=== PATIENT | female | born 1975 | race Caucasian/White ===

== ENCOUNTER 2017-01-29 19:25 | Emergency (ER) | payer OTHER ==
[2017-01-29] MEDS ORDERED: NORCO 5/325 MG PO ONE ×2 (20:30→20:31)
[2017-01-29] MEDS ORDERED: Zithromax 250 MG TABLET PO ONE (20:30)
--- NOTE | 2017-01-29 20:36 | ERPHSYRPT ---
- History of Present Illness Time Seen by Provider: 01/29/17 20:26 Source: patient Exam Limitations: no limitations Patient Subjective Stated Complaint: pt states she has had a sore throat since last night and has no voice increased pain today. Triage Nursing Assessment: pt alert and oriented, answers questions approp. voice hoarse, redness noted to throat. pt ambulatory with steady gait noted. respirations nonlabored with lungs cta. Physician History: SINCE YESTERDAY PT HAS HAD COUGH, SORE THROAT AND HOARSENESS; DENIES FEVER, VOMITING. Allergies/Adverse Reactions: cefaclor [From [employer]] Allergy (Intermediate, Verified 01/29/17 19:43) Hives Home Medications: Citalopram Hydrobromide 20 mg* [ceLEXa 20 MG] 20 mg PO DAILY 05/26/14 [ History] Clonazepam 0.5 mg [Klonopin 0.5 MG] 0.5 mg PO Q6-8HPRN PRN 01/29/17 [ History] Prednisone 20 mg [Deltasone 20 mg] 5 mg PO DAILY 01/29/17 [History] Hx Tetanus, Diphtheria Vaccination/Date Given: Yes Hx Influenza Vaccination/Date Given: No Hx Pneumococcal Vaccination/Date Given: No Immunizations Up to Date: Yes - Review of Systems Constitutional: No Fever Ears, Nose, & Throat: Throat Pain, Hoarse Respiratory: Cough Abdominal/Gastrointestinal: No Vomiting All Other Systems: Reviewed and Negative - Past Medical History Pertinent Past Medical History: Yes Neurological History: No Pertinent History ENT History: No Pertinent History Cardiac History: No Pertinent History Respiratory History: Asthma Endocrine Medical History: No Pertinent History Musculoskeletal History: No Pertinent History GI Medical History: Colitis, Other History: No Pertinent History Psycho-Social History: Anxiety, Depression Female Reproductive Disorders: No Pertinent History Other Medical History: ULCERATIVE COLITIS,ANEMIA - Past Surgical History Past Surgical History: Yes Neuro Surgical History: No Pertinent History Cardiac: No Pertinent History Respiratory: No Pertinent History Gastrointestinal: No Pertinent History Genitourinary: No Pertinent History Musculoskeletal: No Pertinent History Female Surgical History: Section, Tubal Ligation - Social History Smoking Status: Never smoker How long have you smoked: 10yrs Exposure to second hand smoke: No Drug Use: none Patient Lives Alone: No - Female History Hx Last Menstrual Period: 1 month ago Hx Now: No - Nursing Vital Signs Nursing Vital Signs: Initial Vital Signs Temperature 97.9 F Temperature Source Oral Pulse Rate 90 Respiratory Rate 18 Blood Pressure [Right Arm] 125/72 Blood Pressure [Right Arm] 127/76 Pain Intensity 8 - Physical Exam General Appearance: alert Eye Exam: PERRL/EOMI, other (LEFT CONJUNCTIVAE INJECTED) Ears, Nose, Throat Exam: TMs normal, moist mucous membranes, pharyngeal erythema Neck Exam: normal inspection Respiratory Exam: lungs clear Cardiovascular Exam: normal heart sounds Gastrointestinal/Abdomen Exam: soft, normal bowel sounds Back Exam: normal range of motion Extremity Exam: normal inspection, No pedal edema Neurologic Exam: alert, cooperative Skin Exam: warm, dry SpO2 Interpretation: normal SpO2: 100 Oxygen Delivery: Room Air - Course Nursing assessment & vital signs reviewed: Yes Ordered Tests: Medication Summary Generic Name Dose Route Start Last Admin Trade Name Freq PRN Reason Stop Dose Admin Acetaminophen/Hydrocodone Bitart 2 tab 01/29/17 20:30 [place] 5/325 Mg PO 01/29/17 20:31 STAT ONE Acetaminophen/Hydrocodone Bitart 2 tab 01/29/17 20:31 [place] 5/325 Mg PO 01/29/17 20:32 SENT HOME W/ PATIENT ONE Azithromycin 500 mg 01/29/17 20:30 Zithromax 250 Mg Tablet PO 01/29/17 20:31 STAT ONE - Progress Progress Note: 01/29/17 20:35 PT WANTS TO USE THE GENTAMYCIN EYE DROPS SHE HAS AT HOME FOR HER LEFT CONJUNCTIVITIS. - Departure Time of Disposition: 20:36 Departure Disposition: Home Clinical Impression: PHARYNGITIS, CONJUNCTIVITIS OF LEFT EYE Condition: Fair Critical Care Time: No Instructions: Pharyngitis/Tonsillopharyngitis -- Adult, Conjunctivitis Additional Instructions: FOLLOW UP WITH PRIVATE DOCTOR TOMORROW. Prescriptions: Naproxen [Naprosyn] 500 mg PO Q12H PRN PRN #20 tablet PRN Reason: Pain Azithromycin 250 mg [Zithromax 250 MG TABLET] 250 mg PO ZPACK #6 tablet
[2017-01-29] MEDS ORDERED: Zithromax 250 MG TABLET ONE (20:53)
[2017-01-29] MEDS ORDERED: NORCO 5/325 MG ONE (20:54)
[2017-01-29 21:18] VITALS: BP 124/78; PULSE 98; O2SAT 99
== END 2017-01-29 21:18 | disposition home or self-care (01) ==
LOC: ED 19:25
DX: J02.9 Acute pharyngitis, unspecified (principal); H10.9 Unspecified conjunctivitis; R05 Cough; R49.0 Dysphonia
CPT/HCPCS: 99283; A9270-GY

== ENCOUNTER 2017-03-11 09:22 | Emergency (ER) | payer OTHER ==
[2017-03-11] MEDS ORDERED: Sodium Chloride 0.9% 1000 ML 1,000 ML IV STA (09:53)
[2017-03-11] MEDS ORDERED: Phenergan 25 MG INJ IM ONE (09:53)
[2017-03-11 10:14] LABS: BASOPHIL % 0.4 % (0.0-0.4); Eosinophil % 1.3 % (0.00-5.0); Granulocytes % 69.7 % (36.0-66.0); Lymphocytes % 19.4 % (24.0-44.0); Mean Cell Volume 78.1 fl (78-100); Mean Platelet Volume 11.3 fl (6-9.5); Monocytes % 9.2 % (0.0-12.0); Platelet Count 383 K/mm3 (150-450); Red Blood Count 5.49 M/mm3 (4.1-5.4); Red Cell Distribution Width 14.8 % (11.5-14.0); White Blood Count 9.2 K/mm3 (4.0-10.5)
[2017-03-11 10:28] LABS: COMPLETE URINE MICROSCOPIC? YES; Collection Type CLEAN CATCH
[2017-03-11 10:29] LABS: Bacteria MODERATE /HPF (NEGATIVE); Epithelial Cells MANY /HPF (FEW); Mucus MANY /HPF (NEGATIVE)
[2017-03-11] MEDS ORDERED: Phenergan 25 MG INJ ONE (10:32)
[2017-03-11] MEDS ORDERED: Sodium Chloride 0.9% 1000 ML 1,000 ML ONE (10:32)
--- NOTE | 2017-03-11 10:51 | XRAY ---
Indication: Abdominal pain and diarrhea. Comparison: June 25, 2010. 2 views of the abdomen again demonstrates nonspecific nonobstructed bowel gas pattern. Right lower quadrant undigested medication/pills. No free air. Solid organs and osseous structures are unremarkable. Single PA chest again demonstrates normal heart, lungs, and bony thorax. Impression: Stable nonacute nonobstructed abdomen with normal 1 view chest.
[2017-03-11 10:53] LABS: ALBUMIN 3.6 g/dL (3.4-5.0); ALKALINE PHOSPHATASE 138 U/L (46-116); ANION GAP 14.8 MEQ/L (5-15); BILIRUBIN,TOTAL 0.5 mg/dL (0.2-1.0); BLOOD UREA NITROGEN 11 mg/dL (9-20); CHLORIDE 102 mEq/L (98-107); Carbon Dioxide 26.8 mEq/L (21-32); Glucose 107 MG/DL (70-110); LIPASE 86 U/L (73-393); Potassium 3.6 mEq/L (3.5-5.1); SGOT/AST 13 U/L (15-37); SGPT/ALT 19 U/L (12-78); SODIUM 140 mEq/L (136-145); Total Protein 7.5 gm/dL (6.4-8.2)
--- NOTE | 2017-03-11 10:56 | ERPHSYRPT ---
- History of Present Illness Time Seen by Provider: 03/11/17 09:27 Historian: patient Patient Subjective Stated Complaint: vomiting since last friday Triage Nursing Assessment: vomiting less than 5 times daily since last friday. diarrhea x6 daily from friday to friday. states has 'ulcerative colitis and i have a little blood in my stool but no diarrhea now' skin warm and dry. bs present. c/o frontal headache Physician History: CC: V/D Hx: 41 y/o patient with hx of ulcerative colitis. She had diarrhea and vomiting all weekend. The diarrhea has improved. Mild blood in stool. No fever or chills. Feels dehydrated. No real abd pain. No chest pain. She has a burning sensation where she vomits. Timing/Duration: day(s) (few) Allergies/Adverse Reactions: cefaclor [From [facility]] Allergy (Intermediate, Verified 03/11/17 09:50) Hives Home Medications: Clonazepam 0.5 mg [Klonopin 0.5 MG] 0.5 mg PO BID 03/11/17 [History] Tramadol HCl/Acetaminophen [Tramadol-Acetaminophn 37.5-325] 1 each PO TIDPRN 07/20 [History] Hx Tetanus, Diphtheria Vaccination/Date Given: Yes Hx Influenza Vaccination/Date Given: No Hx Pneumococcal Vaccination/Date Given: No Immunizations Up to Date: Yes - Review of Systems Constitutional: Malaise, No Fever, No Chills Eyes: No Symptoms Ears, Nose, & Throat: No Symptoms Respiratory: No Cough, No Dyspnea Cardiac: No Chest Pain Abdominal/Gastrointestinal: Nausea, Vomiting, Diarrhea, No Abdominal Pain Genitourinary Symptoms: No Dysuria Musculoskeletal: No Back Pain Skin: No Rash Neurological: No Headache All Other Systems: Reviewed and Negative - Past Medical History Pertinent Past Medical History: Yes Neurological History: No Pertinent History ENT History: No Pertinent History Cardiac History: No Pertinent History Respiratory History: Asthma Endocrine Medical History: No Pertinent History Musculoskeletal History: No Pertinent History GI Medical History: Colitis, Other History: No Pertinent History Psycho-Social History: Anxiety, Depression Female Reproductive Disorders: No Pertinent History Other Medical History: ULCERATIVE COLITIS,ANEMIA - Past Surgical History Past Surgical History: Yes Neuro Surgical History: No Pertinent History Cardiac: No Pertinent History Respiratory: No Pertinent History Gastrointestinal: No Pertinent History Genitourinary: No Pertinent History Musculoskeletal: No Pertinent History Female Surgical History: Section, Tubal Ligation - Social History Smoking Status: Current every day smoker How long have you smoked: 10yrs Exposure to second hand smoke: No Drug Use: none Patient Lives Alone: No - Female History Hx Last Menstrual Period: 2 weeks Hx Now: No - Nursing Vital Signs Nursing Vital Signs: Initial Vital Signs Temperature 98.1 F Temperature Source Oral Pulse Rate 62 Respiratory Rate 18 Blood Pressure [] 97/70 Pain Intensity 3 - Physical Exam General Appearance: alert Eye Exam: PERRL/EOMI Ears, Nose, Throat Exam: dry mucous membranes Neck Exam: normal inspection, non-tender, supple Respiratory Exam: normal breath sounds, lungs clear Cardiovascular Exam: regular rate/rhythm, No murmur Gastrointestinal/Abdomen Exam: soft, No tenderness, No distention, No mass, No guarding Back Exam: normal inspection Extremity Exam: normal inspection, normal range of motion Neurologic Exam: alert, oriented x 3, cooperative, sensation nml, No motor deficits Skin Exam: warm, dry, No rash SpO2 Interpretation: normal SpO2: 94 Oxygen Delivery: Room Air - Course Nursing assessment & vital signs reviewed: Yes - Radiology Exams AAS X-ray Interpretation: Teleradiologist Report, Negative Ordered Tests: Active Orders 24 hr Category Date Time Status Clean Catch Urine Specimen STAT Care 03/11/17 09:53 Active IV Insertion STAT Care 03/11/17 09:53 Active OBSTR/ACUTE ABDOMEN SERIES Stat Exams 03/11/17 09:54 Completed CBC W DIFF Stat Lab 03/11/17 10:11 Completed CMP Stat Lab 03/11/17 10:11 Completed HCG QUALITATIVE,SERUM Stat Lab 03/11/17 10:11 Completed LIPASE Stat Lab 03/11/17 10:11 Completed UA W/ MICROSCOPIC Stat Lab 03/11/17 09:54 Completed Medication Summary Discontinued Medications Generic Name Dose Route Start Last Admin Trade Name Freq PRN Reason Stop Dose Admin Sodium Chloride 1,000 mls @ 999 mls/hr 03/11/17 09:53 03/11/17 10:50 Sodium Chloride 0.9% 1000 Ml IV 03/11/17 10:53 999 mls/hr .Q1H1M STA Administration Sodium Chloride Confirm 03/11/17 10:32 Sodium Chloride 0.9% 1000 Ml Administered 03/11/17 10:33 Dose 1,000 mls @ ud .ROUTE .STK-MED ONE Promethazine HCl 25 mg 03/11/17 09:53 03/11/17 10:50 Phenergan 25 Mg Inj IM 03/11/17 09:54 25 mg STAT ONE Administration Promethazine HCl Confirm 03/11/17 10:32 Phenergan 25 Mg Inj Administered 03/11/17 10:33 Dose 25 mg .ROUTE .STK-MED ONE Lab/Rad Data: Laboratory Result Diagrams 03/11/17 10:11 03/11/17 10:11 Laboratory Results 03/11/17 03/11/17 03/11/17 Range/Units 10:11 10:11 10:11 WBC 9.2 (4.0-10.5) K/mm3 RBC 5.49 H (4.1-5.4) M/mm3 Hgb 14.3 (12.0-16.0) gm/dl Hct 42.9 (35-47) % MCV 78.1 (78-100) fl MCH 26.0 (26-32) pg MCHC 33.3 (32-36) g/dl RDW 14.8 H (11.5-14.0) % Plt Count 383 (150-450) K/mm3 MPV 11.3 H (6-9.5) fl Gran % 69.7 H (36.0-66.0) % Lymphocytes % 19.4 L (24.0-44.0) % Monocytes % 9.2 (0.0-12.0) % Eosinophils % 1.3 (0.00-5.0) % Basophils % 0.4 (0.0-0.4) % Basophils # 0.04 (0-0.4) Sodium 140 (136-145) mEq/L Potassium 3.6 (3.5-5.1) mEq/L Chloride 102 (98-107) mEq/L Carbon Dioxide 26.8 (21-32) mEq/L Anion Gap 14.8 (5-15) MEQ/L BUN 11 (9-20) mg/dL Creatinine 0.84 (0.55-1.30) mg/dl Estimated GFR > 60 ML/MIN Glucose 107 (70-110) MG/DL Calcium 9.1 (8.5-10.1) mg/dL Total Bilirubin 0.5 (0.2-1.0) mg/dL AST 13 L (15-37) U/L ALT 19 (12-78) U/L Alkaline Phosphatase 138 H (46-116) U/L Serum Total Protein 7.5 (6.4-8.2) gm/dL Albumin 3.6 (3.4-5.0) g/dL Lipase 86 (73-393) U/L Serum , Qual NEGATIVE (Negative) Ur Collection Type Urine Color (YELLOW) Urine Appearance (CLEAR) Urine pH (5-6) Ur Specific [place] (1.005-1.025) Urine Protein (Negative) Urine Glucose (UA) (NEGATIVE) mg/dL Urine Ketones (NEGATIVE) Urine Nitrite (NEGATIVE) Urine Bilirubin (NEGATIVE) Urine Urobilinogen (0-1) mg/dL Urine WBC (Auto) (NEGATIVE) Urine RBC (Auto) (0-5) Jaswinder/ul Urine Microscopic RBC (0-2) /HPF Urine Microscopic WBC (0-5) /HPF Ur Epithelial Cells (FEW) /HPF Urine Bacteria (NEGATIVE) /HPF Urine Mucus (NEGATIVE) /HPF Specimen Received 03/11/17 Range/Units 09:54 WBC (4.0-10.5) K/mm3 RBC (4.1-5.4) M/mm3 Hgb (12.0-16.0) gm/dl Hct (35-47) % MCV (78-100) fl MCH (26-32) pg MCHC (32-36) g/dl RDW (11.5-14.0) % Plt Count (150-450) K/mm3 MPV (6-9.5) fl Gran % (36.0-66.0) % Lymphocytes % (24.0-44.0) % Monocytes % (0.0-12.0) % Eosinophils % (0.00-5.0) % Basophils % (0.0-0.4) % Basophils # (0-0.4) Sodium (136-145) mEq/L Potassium (3.5-5.1) mEq/L Chloride (98-107) mEq/L Carbon Dioxide (21-32) mEq/L Anion Gap (5-15) MEQ/L BUN (9-20) mg/dL Creatinine (0.55-1.30) mg/dl Estimated GFR ML/MIN Glucose (70-110) MG/DL Calcium (8.5-10.1) mg/dL Total Bilirubin (0.2-1.0) mg/dL AST (15-37) U/L ALT (12-78) U/L Alkaline Phosphatase (46-116) U/L Serum Total Protein (6.4-8.2) gm/dL Albumin (3.4-5.0) g/dL Lipase (73-393) U/L Serum , Qual (Negative) Ur Collection Type CLEAN CATCH Urine Color YELLOW (YELLOW) Urine Appearance SLIGHTLY CLOUDY (CLEAR) Urine pH 6.0 (5-6) Ur Specific [place] 1.020 (1.005-1.025) Urine Protein 30 (Negative) Urine Glucose (UA) NEGATIVE (NEGATIVE) mg/dL Urine Ketones MODERATE-40 (NEGATIVE) Urine Nitrite NEGATIVE (NEGATIVE) Urine Bilirubin MODERATE (NEGATIVE) Urine Urobilinogen 1 (0-1) mg/dL Urine WBC (Auto) NEGATIVE (NEGATIVE) Urine RBC (Auto) SMALL (0-5) Jaswinder/ul Urine Microscopic RBC 0-2 (0-2) /HPF Urine Microscopic WBC 2-5 (0-5) /HPF Ur Epithelial Cells MANY (FEW) /HPF Urine Bacteria MODERATE (NEGATIVE) /HPF Urine Mucus MANY (NEGATIVE) /HPF Specimen Received 03/11/17 1015 - Progress Progress Note: 03/11/17 11:18 Pt stable. Feeling better after IVF and phenergan. She will try phenergan at home. Hg good. Advised follow up with Dr Aleman this week. Will release with instructions. Counseled pt/family regarding: lab results, diagnosis, need for follow-up, rad results - Departure Time of Disposition: 11:18 Departure Disposition: Home Clinical Impression: Vomiting and diarrhea, Ulcerative colitis Condition: Stable Critical Care Time: No Referrals: NOE ALEMAN [Primary Care Provider] - Instructions: Vomiting -- Adult, Diarrhea and Traveler's Diarrhea -- Adult, Ulcerative Colitis Additional Instructions: Sip fluids. Advance to bland diet. Rx phenergan for nausea. No driving today or while taking phenergan. Follow up with Dr Yen Aleman in 1-2 days. Return for problems or concerns. Prescriptions: Promethazine HCl 25 mg [Phenergan 25 mg] 25 mg PO Q6H PRN PRN #10 tablet PRN Reason: Nausea/Vomiting
[2017-03-11 11:44] VITALS: BP 122/70; PULSE 70; O2SAT 100
== END 2017-03-11 11:44 | disposition home or self-care (01) ==
LOC: ED 09:22
DX: R11.2 Nausea with vomiting, unspecified (principal); R19.7 Diarrhea, unspecified; K51.90 Ulcerative colitis, unspecified, without complications; K92.1 Melena; R51 Headache
CPT/HCPCS: 36000; 36415; 74022; 80053; 81000; 83690; 84703; 85025; 96360; 96372; 99284; J2550

== ENCOUNTER 2017-04-08 15:59 | Emergency (ER) | payer OTHER ==
[2017-04-08] MEDS ORDERED: Sodium Chloride 0.9% 1000 ML 1,000 ML IV STA (16:22)
[2017-04-08] MEDS ORDERED: Sodium Chloride 0.9% 1000 ML 1,000 ML ONE (16:23)
[2017-04-08 16:46] LABS: BASOPHIL % 0.4 % (0.0-0.4); Eosinophil % 0.4 % (0.00-5.0); Granulocytes % 67.1 % (36.0-66.0); Lymphocytes % 22.3 % (24.0-44.0); Mean Cell Volume 77.3 fl (78-100); Mean Platelet Volume 10.8 fl (6-9.5); Monocytes % 9.8 % (0.0-12.0); Platelet Count 474 K/mm3 (150-450); Red Blood Count 5.91 M/mm3 (4.1-5.4); Red Cell Distribution Width 15.7 % (11.5-14.0); White Blood Count 10.1 K/mm3 (4.0-10.5)
[2017-04-08 17:00] LABS: Collection Type VOID; Ph 7.5 (5-6)
[2017-04-08 17:01] LABS: COMPLETE URINE MICROSCOPIC? YES
[2017-04-08 17:02] LABS: ADD URINE CULTURE? YES (NO); ALBUMIN 3.9 g/dL (3.4-5.0); ALKALINE PHOSPHATASE 141 U/L (46-116); ANION GAP 16.6 MEQ/L (5-15); BLOOD UREA NITROGEN 11 mg/dL (9-20); Bacteria MANY /HPF (NEGATIVE); CHLORIDE 102 mEq/L (98-107); Carbon Dioxide 25.6 mEq/L (21-32); Epithelial Cells MANY /HPF (FEW); Glucose 110 MG/DL (70-110); Potassium 3.8 mEq/L (3.5-5.1); SGOT/AST 12 U/L (15-37); SGPT/ALT 21 U/L (12-78); SODIUM 140 mEq/L (136-145); Total Protein 8.5 gm/dL (6.4-8.2); WBC 0-2 /HPF (0-5)
--- NOTE | 2017-04-08 17:45 | ERPHSYRPT ---
- History of Present Illness Time Seen by Provider: 04/08/17 16:15 Historian: patient Exam Limitations: no limitations Patient Subjective Stated Complaint: pt states she has been vomiting for the past 2 days. pt denies any diarrhea. Triage Nursing Assessment: pt pink, warm, dry. abdomen obese. bowel sounds present in all 4 quads. pt afebrile. Timing/Duration: day(s) (2) Activities at Onset: none Quality: cramping Abdominal Pain Onset Location: suprapubic Pain Radiation: no radiation Severity of Pain-Max: moderate Severity of Pain-Current: moderate Modifying Factors: Improves With: nothing Allergies/Adverse Reactions: cefaclor [From [employer]] Allergy (Intermediate, Verified 04/08/17 16:16) Hives Home Medications: Clonazepam 0.5 mg [Klonopin 0.5 MG] 0.5 mg PO BID 03/11/17 [History] Tramadol HCl/Acetaminophen [Tramadol-Acetaminophn 37.5-325] 1 each PO TIDPRN 07/20 [History] Hx Tetanus, Diphtheria Vaccination/Date Given: Yes (up to date) Hx Influenza Vaccination/Date Given: No Hx Pneumococcal Vaccination/Date Given: No Immunizations Up to Date: Yes - Review of Systems Constitutional: No Symptoms Eyes: No Symptoms Ears, Nose, & Throat: No Symptoms Respiratory: No Symptoms Cardiac: No Symptoms Abdominal/Gastrointestinal: Abdominal Pain, Vomiting Genitourinary Symptoms: Dysuria Musculoskeletal: No Symptoms Skin: No Symptoms Neurological: No Symptoms Psychological: No Symptoms Endocrine: No Symptoms Hematologic/Lymphatic: No Symptoms - Past Medical History Pertinent Past Medical History: Yes Neurological History: No Pertinent History ENT History: No Pertinent History Cardiac History: No Pertinent History Respiratory History: Asthma Endocrine Medical History: No Pertinent History Musculoskeletal History: No Pertinent History GI Medical History: Colitis, Other History: No Pertinent History Psycho-Social History: Anxiety, Depression Female Reproductive Disorders: No Pertinent History Other Medical History: ULCERATIVE COLITIS,ANEMIA - Past Surgical History Past Surgical History: Yes Neuro Surgical History: No Pertinent History Cardiac: No Pertinent History Respiratory: No Pertinent History Gastrointestinal: No Pertinent History Genitourinary: No Pertinent History Musculoskeletal: No Pertinent History Female Surgical History: Section, Tubal Ligation - Social History Smoking Status: Former smoker How long have you smoked: 10yrs Exposure to second hand smoke: No Drug Use: none Patient Lives Alone: No - Female History Hx Last Menstrual Period: 03/09/2017 Hx Now: No - Nursing Vital Signs Nursing Vital Signs: Initial Vital Signs Temperature 97.9 F Temperature Source Oral Pulse Rate 80 Respiratory Rate 16 Blood Pressure [Right Arm] 108/83 Pain Intensity 0 - Physical Exam General Appearance: mild distress Eye Exam: eyes nml inspection Ears, Nose, Throat Exam: normal ENT inspection, pharynx normal Neck Exam: normal inspection, non-tender, supple, full range of motion Respiratory Exam: normal breath sounds, lungs clear, airway intact Cardiovascular Exam: regular rate/rhythm, normal heart sounds, normal peripheral pulses Gastrointestinal/Abdomen Exam: soft, normal bowel sounds Back Exam: normal inspection, normal range of motion, No CVA tenderness Extremity Exam: normal inspection, normal range of motion, pelvis stable Neurologic Exam: alert, oriented x 3, cooperative Skin Exam: normal color, warm, dry SpO2 Interpretation: normal SpO2: 97 Oxygen Delivery: Room Air - Course Nursing assessment & vital signs reviewed: Yes Ordered Tests: Active Orders 24 hr Category Date Time Status Clean Catch Urine Specimen STAT Care 04/08/17 16:19 Active IV Insertion STAT Care 04/08/17 16:17 Active Orthostatic Vital Signs STAT Care 04/08/17 17:50 Active CBC W DIFF Stat Lab 04/08/17 16:19 Completed CMP Stat Lab 04/08/17 16:19 Completed CULTURE,URINE Stat Lab 04/08/17 16:19 Received Manual Differential NC Stat Lab 04/08/17 16:19 Completed UA W/ MICROSCOPIC Stat Lab 04/08/17 16:19 Completed Medication Summary Discontinued Medications Generic Name Dose Route Start Last Admin Trade Name Patrick PRN Reason Stop Dose Admin Sodium Chloride 1,000 mls @ 999 mls/hr 04/08/17 16:22 04/08/17 16:26 Sodium Chloride 0.9% 1000 Ml IV 04/08/17 17:22 999 mls/hr .Q1H1M STA Administration Sodium Chloride Confirm 04/08/17 16:23 Sodium Chloride 0.9% 1000 Ml Administered 04/08/17 16:24 Dose 1,000 mls @ ud .ROUTE .STK-MED ONE Lab/Rad Data: Laboratory Result Diagrams 04/08/17 16:19 04/08/17 16:19 Laboratory Results 04/08/17 04/08/1704/08/17 Range/Units 16:19 16:19 16:19 WBC 10.1 (4.0-10.5) K/mm3 RBC 5.91 H (4.1-5.4) M/mm3 Hgb 14.8 (12.0-16.0) gm/dl Hct 45.7 (35-47) % MCV 77.3 L (78-100) fl MCH 25.0 L (26-32) pg MCHC 32.4 (32-36) g/dl RDW 15.7 H (11.5-14.0) % Plt Count 474 H (150-450) K/mm3 MPV 10.8 H (6-9.5) fl Gran % 67.1 H (36.0-66.0) % Lymphocytes % 22.3 L (24.0-44.0) % Monocytes % 9.8 (0.0-12.0) % Eosinophils % 0.4 (0.00-5.0) % Basophils % 0.4 (0.0-0.4) % Basophils # 0.04 (0-0.4) Sodium 140 (136-145) mEq/L Potassium 3.8 (3.5-5.1) mEq/L Chloride 102 (98-107) mEq/L Carbon Dioxide 25.6 (21-32) mEq/L Anion Gap 16.6 H (5-15) MEQ/L BUN 11 (9-20) mg/dL Creatinine 0.85 (0.55-1.30) mg/dl Estimated GFR > 60 ML/MIN Glucose 110 (70-110) MG/DL Calcium 9.5 (8.5-10.1) mg/dL Total Bilirubin 0.50 (0.2-1.0) mg/dL AST 12 L (15-37) U/L ALT 21 (12-78) U/L Alkaline Phosphatase 141 H (46-116) U/L Serum Total Protein 8.5 H (6.4-8.2) gm/dL Albumin 3.9 (3.4-5.0) g/dL Ur Collection Type VOID Urine Color YELLOW (YELLOW) Urine Appearance CLOUDY (CLEAR) Urine pH 7.5 (5-6) Ur Specific [place] 1.015 (1.005-1.025) Urine Protein 30 (Negative) Urine Glucose (UA) NEGATIVE (NEGATIVE) mg/dL Urine Ketones SMALL-15 (NEGATIVE) Urine Nitrite NEGATIVE (NEGATIVE) Urine Bilirubin SMALL (NEGATIVE) Urine Urobilinogen 0.2 (0-1) mg/dL Urine WBC (Auto) NEGATIVE (NEGATIVE) Urine RBC (Auto) TRACE-INTACT (0-5) Jaswinder/ul Urine Microscopic RBC 2-5 (0-2) /HPF Urine Microscopic WBC 0-2 (0-5) /HPF Ur Epithelial Cells MANY (FEW) /HPF Urine Bacteria MANY (NEGATIVE) /HPF Specimen Received 04/08/17 1704 - Progress Progress: improved Discussed with : Other (PCP 1 week) Counseled pt/family regarding: lab results, diagnosis, need for follow-up - Departure Time of Disposition: 18:55 Departure Disposition: Home Clinical Impression: Vomiting and diarrhea UTI (urinary tract infection) Qualifiers: Urinary tract infection type: site unspecified Hematuria presence: without hematuria Qualified Code(s): N39.0 - Urinary tract infection, site not specified Condition: Stable Critical Care Time: No Prescriptions: Smz/Tmp Ds Tablet [Bactrim Ds Tablet] 1 udtab PO BID #10 tablet
[2017-04-08] MEDS ORDERED: Zofran 4 MG/2 ML VIAL IV ONE (19:08)
[2017-04-08] MEDS ORDERED: Zofran 4 MG/2 ML VIAL ONE (19:10)
[2017-04-08 19:26] VITALS: BP 124/82; PULSE 100; O2SAT 98
== END 2017-04-08 19:28 | disposition home or self-care (01) ==
LOC: ED 15:59
DX: R11.10 Vomiting, unspecified (principal); R19.7 Diarrhea, unspecified; R30.0 Dysuria; N39.0 Urinary tract infection, site not specified
CPT/HCPCS: 36000; 36415; 80053; 81000; 85025; 87086; 96360; 96374; 99284; J2405

== ENCOUNTER 2017-04-11 09:51 | Emergency (ER) | payer OTHER ==
--- NOTE | 2017-04-11 10:43 | ERPHSYRPT ---
- History of Present Illness Time Seen by Provider: 04/11/17 10:24 Source: patient Exam Limitations: no limitations Patient Subjective Stated Complaint: PT REPORTS VOMITING X 3 DAYS-DENIES DIARRHEA-REPORTS DIAPHORESIS-PT TOOK LAST OF HER NERVE MEDS 4 DAYS AGO-STATES SHE WAS DX WITH UTI ET PLACED ON BACTRIM BUT HASN'T TAKEN IT DUE TO VOMITING Triage Nursing Assessment: PT PALE WARM ET DIAPHOETIC-ABD SOFT ET NONTENDER TO PALP-PT BOWEL SOUNDS PRESENT-RESP NONLABORED-PT ANXIOUS ET TALKATIVE Physician History: The patient is a 41-year-old female with her complaining of vomiting daily for about a week. She was seen in this ER on 04/08/17 for the same complaint. She says he's also sweaty at times during the day. She denies diarrhea. She also wants some Klonopin because she has run out. She states her doctor only gives her one week of it at a time. She is to see her doctor on Friday. Today she requests that if I cannot give her Klonopin, Phenergan will be good. Her past medical history is significant for anxiety, ulcerative colitis, and anemia. Her surgical history is significant for and tubal ligation. Timing/Duration: week(s) (1) Severity: mild Modifying Factors: Improves With: eating Associated Symptoms: vomiting, diaphoresis, No abdominal pain Allergies/Adverse Reactions: cefaclor [From Ceclor] Allergy (Intermediate, Verified 04/11/17 09:59) Hives Home Medications: Clonazepam 0.5 mg [Klonopin 0.5 MG] 0.5 mg PO BID 03/11/17 [History] Tramadol HCl/Acetaminophen [Tramadol-Acetaminophn 37.5-325] 1 each PO TIDPRN 07/20 [History] Hx Tetanus, Diphtheria Vaccination/Date Given: Yes Hx Influenza Vaccination/Date Given: No Hx Pneumococcal Vaccination/Date Given: No Immunizations Up to Date: Yes - Review of Systems Constitutional: No Fever, No Chills Eyes: No Symptoms Ears, Nose, & Throat: No Symptoms Respiratory: No Cough, No Dyspnea Cardiac: No Chest Pain, No Edema, No Syncope Abdominal/Gastrointestinal: Vomiting (obese) Genitourinary Symptoms: No Dysuria Musculoskeletal: No Back Pain, No Neck Pain Skin: Other (diaphoresis), No Rash Neurological: No Dizziness, No Focal Weakness, No Sensory Changes Psychological: No Symptoms Endocrine: No Symptoms Hematologic/Lymphatic: No Symptoms Immunological/Allergic: No Symptoms All Other Systems: Reviewed and Negative - Past Medical History Pertinent Past Medical History: Yes Neurological History: No Pertinent History ENT History: No Pertinent History Cardiac History: No Pertinent History Respiratory History: Asthma Endocrine Medical History: No Pertinent History Musculoskeletal History: No Pertinent History GI Medical History: Colitis, Other History: No Pertinent History Psycho-Social History: Anxiety, Depression Female Reproductive Disorders: No Pertinent History Other Medical History: ULCERATIVE COLITIS,ANEMIA - Past Surgical History Past Surgical History: Yes Neuro Surgical History: No Pertinent History Cardiac: No Pertinent History Respiratory: No Pertinent History Gastrointestinal: No Pertinent History Genitourinary: No Pertinent History Musculoskeletal: No Pertinent History Female Surgical History: Section, Tubal Ligation - Social History Smoking Status: Former smoker How long have you smoked: 10yrs Exposure to second hand smoke: No Drug Use: none Patient Lives Alone: No - Female History Hx Last Menstrual Period: CURRENT Hx Now: No - Nursing Vital Signs Nursing Vital Signs: Initial Vital Signs Temperature 98.0 F Temperature Source Oral Pulse Rate 100 Respiratory Rate 20 Blood Pressure [] 107/42 Pain Intensity 0 - Physical Exam General Appearance: no apparent distress, alert Eye Exam: PERRL/EOMI, eyes nml inspection Ears, Nose, Throat Exam: normal ENT inspection, TMs normal, pharynx normal, moist mucous membranes Neck Exam: normal inspection, non-tender, supple, full range of motion Respiratory Exam: normal breath sounds, lungs clear, No respiratory distress Cardiovascular Exam: regular rate/rhythm, normal heart sounds, normal peripheral pulses Gastrointestinal/Abdomen Exam: soft, normal bowel sounds, No tenderness, No mass Pelvic Exam: not done Rectal Exam: not done Back Exam: normal inspection, normal range of motion, No CVA tenderness, No vertebral tenderness Extremity Exam: normal inspection, normal range of motion, pelvis stable Neurologic Exam: alert, oriented x 3, cooperative, normal mood/affect, nml cerebellar function, nml station & gait, sensation nml, No motor deficits Skin Exam: normal color, warm, dry, No rash Lymphatic Exam: No adenopathy SpO2 Interpretation: normal SpO2: 97 Oxygen Delivery: Room Air - Radiology Exams Abdomen X-ray Interpretation: Teleradiologist Report, Negative (Per Dr Arroyo.) Ordered Tests: Active Orders 24 hr Category Date Time Status IV Insertion STAT Care 04/11/17 10:49 Active OBSTR/ACUTE ABDOMEN SERIES Stat Exams 04/11/17 10:48 Completed CBC W DIFF Stat Lab 04/11/17 11:03 Completed CMP Stat Lab 04/11/17 11:03 Completed CULTURE,URINE Stat Lab 04/11/17 11:03 Received HCG QUALITATIVE,SERUM Stat Lab 04/11/17 11:03 Completed UA W/ MICROSCOPIC Stat Lab 04/11/17 11:03 Completed Medication Summary Discontinued Medications Generic Name Dose Route Start Last Admin Trade Name Shaggyq PRN Reason Stop Dose Admin Sodium Chloride 1,000 mls @ 999 mls/hr 04/11/17 10:47 04/11/17 11:13 Sodium Chloride 0.9% 1000 Ml IV 04/11/17 11:47 999 mls/hr .Q1H1M STA Administration Sodium Chloride Confirm 04/11/17 11:08 Sodium Chloride 0.9% 1000 Ml Administered 04/11/17 11:09 Dose 1,000 mls @ ud .ROUTE .STK-MED ONE Promethazine HCl 25 mg 04/11/17 10:47 04/11/17 11:13 Phenergan 25 Mg Inj IV 04/11/17 10:48 25 mg STAT ONE Administration Promethazine HCl Confirm 04/11/17 11:08 Phenergan 25 Mg Inj Administered 04/11/17 11:09 Dose 25 mg .ROUTE .STK-MED ONE Lab/Rad Data: Laboratory Result Diagrams 04/11/17 11:03 04/11/17 11:03 Laboratory Results 04/11/17 04/11/17 04/11/17 Range/Units 11:03 11:03 11:03 WBC (4.0-10.5) K/mm3 RBC (4.1-5.4) M/mm3 Hgb (12.0-16.0) gm/dl Hct (35-47) % MCV (78-100) fl MCH (26-32) pg MCHC (32-36) g/dl RDW (11.5-14.0) % Plt Count (150-450) K/mm3 MPV (6-9.5) fl Gran % (36.0-66.0) % Lymphocytes % (24.0-44.0) % Monocytes % (0.0-12.0) % Eosinophils % (0.00-5.0) % Basophils % (0.0-0.4) % Basophils # (0-0.4) Sodium 139 (136-145) mEq/L Potassium 3.8 (3.5-5.1) mEq/L Chloride 105 (98-107) mEq/L Carbon Dioxide 28.3 (21-32) mEq/L Anion Gap 9.4 (5-15) MEQ/L BUN 12 (9-20) mg/dL Creatinine 0.95 (0.55-1.30) mg/dl Estimated GFR > 60 ML/MIN Glucose 109 (70-110) MG/DL Calcium 9.0 (8.5-10.1) mg/dL Total Bilirubin 0.60 (0.2-1.0) mg/dL AST 25 (15-37) U/L ALT 33 (12-78) U/L Alkaline Phosphatase 130 H (46-116) U/L Serum Total Protein 7.8 (6.4-8.2) gm/dL Albumin 3.7 (3.4-5.0) g/dL Serum , Qual NEGATIVE (Negative) Ur Collection Type VOID Urine Color DARK YELLOW (YELLOW) Urine Appearance SLIGHTLY CLOUDY (CLEAR) Urine pH 5.5 (5-6) Ur Specific [place] >=1.030 (1.005-1.025) Urine Protein 30 (Negative) Urine Glucose (UA) NEGATIVE (NEGATIVE) mg/dL Urine Ketones TRACE (NEGATIVE) Urine Nitrite NEGATIVE (NEGATIVE) Urine Bilirubin SMALL (NEGATIVE) Urine Urobilinogen 1 (0-1) mg/dL Urine WBC (Auto) NEGATIVE (NEGATIVE) Urine RBC (Auto) SMALL (0-5) Jaswinder/ul Urine Microscopic RBC 2-5 (0-2) /HPF Urine Microscopic WBC 2-5 (0-5) /HPF Ur Epithelial Cells MODERATE (FEW) /HPF Urine Bacteria MODERATE (NEGATIVE) /HPF Urine Mucus MODERATE (NEGATIVE) /HPF Specimen Received 04/11/17 1030 04/11/17 Range/Units 11:03 WBC 9.1 (4.0-10.5) K/mm3 RBC 5.36 (4.1-5.4) M/mm3 Hgb 13.6 (12.0-16.0) gm/dl Hct 42.4 (35-47) % MCV 79.1 (78-100) fl MCH 25.4 L (26-32) pg MCHC 32.1 (32-36) g/dl RDW 15.2 H (11.5-14.0) % Plt Count 399 (150-450) K/mm3 MPV 10.4 H (6-9.5) fl Gran % 76.5 H (36.0-66.0) % Lymphocytes % 14.3 L (24.0-44.0) % Monocytes % 7.1 (0.0-12.0) % Eosinophils % 1.8 (0.00-5.0) % Basophils % 0.3 (0.0-0.4) % Basophils # 0.03 (0-0.4) Sodium (136-145) mEq/L Potassium (3.5-5.1) mEq/L Chloride (98-107) mEq/L Carbon Dioxide (21-32) mEq/L Anion Gap (5-15) MEQ/L BUN (9-20) mg/dL Creatinine (0.55-1.30) mg/dl Estimated GFR ML/MIN Glucose (70-110) MG/DL Calcium (8.5-10.1) mg/dL Total Bilirubin (0.2-1.0) mg/dL AST (15-37) U/L ALT (12-78) U/L Alkaline Phosphatase (46-116) U/L Serum Total Protein (6.4-8.2) gm/dL Albumin (3.4-5.0) g/dL Serum , Qual (Negative) Ur Collection Type Urine Color (YELLOW) Urine Appearance (CLEAR) Urine pH (5-6) Ur Specific [place] (1.005-1.025) Urine Protein (Negative) Urine Glucose (UA) (NEGATIVE) mg/dL Urine Ketones (NEGATIVE) Urine Nitrite (NEGATIVE) Urine Bilirubin (NEGATIVE) Urine Urobilinogen (0-1) mg/dL Urine WBC (Auto) (NEGATIVE) Urine RBC (Auto) (0-5) Jaswinder/ul Urine Microscopic RBC (0-2) /HPF Urine Microscopic WBC (0-5) /HPF Ur Epithelial Cells (FEW) /HPF Urine Bacteria (NEGATIVE) /HPF Urine Mucus (NEGATIVE) /HPF Specimen Received - Progress Progress: improved Counseled pt/family regarding: lab results, diagnosis, need for follow-up, rad results - Departure Time of Disposition: 12:09 Departure Disposition: Home Clinical Impression: Vomiting Condition: Stable Critical Care Time: No Additional Instructions: You have been experiencing vomiting. Today you were given normal saline 1 L by IV and Phenergan 25 mg by IV in the ER. Your laboratory results were all normal today. Take Phenergan 25 mg every 8 hours as needed. Follow-up as scheduled with your primary care doctor next week. Prescriptions: Promethazine HCl 25 mg [Phenergan 25 mg] 25 mg PO Q8H PRN PRN #10 tablet PRN Reason: Vomiting
[2017-04-11] MEDS ORDERED: Phenergan 25 MG INJ IV ONE (10:47)
[2017-04-11] MEDS ORDERED: Sodium Chloride 0.9% 1000 ML 1,000 ML IV STA (10:47)
[2017-04-11] MEDS ORDERED: Phenergan 25 MG INJ ONE (11:08)
[2017-04-11] MEDS ORDERED: Sodium Chloride 0.9% 1000 ML 1,000 ML ONE (11:08)
[2017-04-11 11:12] LABS: BASOPHIL % 0.3 % (0.0-0.4); Eosinophil % 1.8 % (0.00-5.0); Granulocytes % 76.5 % (36.0-66.0); Lymphocytes % 14.3 % (24.0-44.0); Mean Cell Volume 79.1 fl (78-100); Mean Corpuscular Hemoglobin 25.4 pg (26-32); Mean Platelet Volume 10.4 fl (6-9.5); Monocytes % 7.1 % (0.0-12.0); Platelet Count 399 K/mm3 (150-450); Red Blood Count 5.36 M/mm3 (4.1-5.4); Red Cell Distribution Width 15.2 % (11.5-14.0); White Blood Count 9.1 K/mm3 (4.0-10.5)
[2017-04-11 11:14] LABS: Collection Type VOID
[2017-04-11 11:15] LABS: COMPLETE URINE MICROSCOPIC? YES; Ph 5.5 (5-6)
[2017-04-11 11:19] LABS: Bacteria MODERATE /HPF (NEGATIVE); Epithelial Cells MODERATE /HPF (FEW); Mucus MODERATE /HPF (NEGATIVE)
[2017-04-11 11:20] LABS: ADD URINE CULTURE? YES (NO)
[2017-04-11 11:29] LABS: ALBUMIN 3.7 g/dL (3.4-5.0); ALKALINE PHOSPHATASE 130 U/L (46-116); ANION GAP 9.4 MEQ/L (5-15); BLOOD UREA NITROGEN 12 mg/dL (9-20); CHLORIDE 105 mEq/L (98-107); Carbon Dioxide 28.3 mEq/L (21-32); Glucose 109 MG/DL (70-110); Potassium 3.8 mEq/L (3.5-5.1); SGOT/AST 25 U/L (15-37); SGPT/ALT 33 U/L (12-78); SODIUM 139 mEq/L (136-145); Total Protein 7.8 gm/dL (6.4-8.2)
--- NOTE | 2017-04-11 11:42 | XRAY ---
Indication: Abdominal pain and vomiting. Comparison: March 11, 2017. 2 views of the abdomen again nonacute and nonobstructed. Solid organs and osseous structures unremarkable. Stable normal 1 view chest. No new/acute findings.
[2017-04-11 12:31] VITALS: BP 130/70; PULSE 80; O2SAT 98
== END 2017-04-11 12:30 | disposition home or self-care (01) ==
LOC: ED 09:51
DX: R11.10 Vomiting, unspecified (principal)
CPT/HCPCS: 36000; 36415; 74022; 80053; 81000; 84703; 85025; 87086; 96360; 96374; 99284; J2550

== ENCOUNTER 2017-07-02 07:32 | Emergency (ER) | payer OTHER ==
[2012-06-19 10:49] VITALS: BP 119/72
[2017-07-02] MEDS ORDERED: Sodium Chloride 0.9% 1000 ML 1,000 ML IV STA (08:04)
[2017-07-02] MEDS ORDERED: Zofran 4 MG/2 ML VIAL IV ONE (08:04)
[2017-07-02] MEDS ORDERED: Sodium Chloride 0.9% 1000 ML 1,000 ML ONE ×2 (08:10→10:15)
[2017-07-02] MEDS ORDERED: Zofran 4 MG/2 ML VIAL ONE (08:10)
--- NOTE | 2017-07-02 08:12 | ERPHSYRPT ---
- History of Present Illness Time Seen by Provider: 07/02/17 08:07 Historian: patient Exam Limitations: no limitations Patient Subjective Stated Complaint: pt has been seen in this er several times for n/v. waited to 2 months to see a gastro [facility] DRIVER in [place] who ordered testing to find out why this is all going on. pt started vomiting last night and cannot stop. has taken po phenergan and this is not working. has vomited x3 in the er. denies any pain just nauseated. has ct scan od abdomen scheduled for next week Triage Nursing Assessment: alert and oriented. pink warm and dry. afebrile. anxious and restless. mucos membranes dry. strong pulses. no abdominal pain. hypoactive bowel sounds. normal vitals Physician History: 41 y/o female with history of ulcerative colitis comes to the ER with complaints of nausea and vomiting for the past 2 days. Pt states that she has been dealing with this issue since March of this year. Pt mentions she is not able to keep anything down. Pt has been using phenergan with no relief. Pt also reports not being able to pass gas. Pt denies any fever, chills, abdominal pain , constipation, diarrhea or urinary symptoms. Of note, patient had an initial meeting with the GI doctor in [place]. Timing/Duration: day(s) (2) Activities at Onset: none Modifying Factors: Improves With: nothing Associated Symptoms: vomiting Previous symptoms: same symptoms as today Allergies/Adverse Reactions: cefaclor [From Ceclor] Allergy (Intermediate, Verified 04/11/17 09:59) Hives Home Medications: Hydrocodone/Acetaminophen [[place] 5-325 Tablet] 1 each PO TID 07/02/17 [History] Hx Tetanus, Diphtheria Vaccination/Date Given: Yes Hx Influenza Vaccination/Date Given: No Hx Pneumococcal Vaccination/Date Given: No - Review of Systems Constitutional: No Fever, No Chills Eyes: No Symptoms Ears, Nose, & Throat: No Symptoms Respiratory: No Cough, No Dyspnea Cardiac: No Chest Pain, No Edema, No Syncope Abdominal/Gastrointestinal: Nausea, Vomiting, No Abdominal Pain, No Diarrhea Genitourinary Symptoms: No Dysuria Musculoskeletal: No Back Pain, No Neck Pain Skin: No Rash Neurological: No Dizziness, No Focal Weakness, No Sensory Changes Psychological: No Symptoms Endocrine: No Symptoms All Other Systems: Reviewed and Negative - Past Medical History Pertinent Past Medical History: Yes Neurological History: No Pertinent History ENT History: No Pertinent History Cardiac History: No Pertinent History Respiratory History: Asthma Endocrine Medical History: No Pertinent History Musculoskeletal History: No Pertinent History GI Medical History: Colitis, Other History: No Pertinent History Psycho-Social History: Anxiety, Depression Female Reproductive Disorders: No Pertinent History Other Medical History: ULCERATIVE COLITIS,ANEMIA - Past Surgical History Past Surgical History: Yes Neuro Surgical History: No Pertinent History Cardiac: No Pertinent History Respiratory: No Pertinent History Gastrointestinal: No Pertinent History Genitourinary: No Pertinent History Musculoskeletal: No Pertinent History Female Surgical History: Section, Tubal Ligation - Social History Smoking Status: Former smoker How long have you smoked: 10yrs Exposure to second hand smoke: No Drug Use: none Patient Lives Alone: No - Female History Hx Last Menstrual Period: current Hx Now: No - Nursing Vital Signs Nursing Vital Signs: Initial Vital Signs Temperature 98.3 F 07/02/17 07:49 Pulse Rate 94 H 07/02/17 07:49 Respiratory Rate 22 07/02/17 07:49 Blood Pressure 130/77 07/02/17 07:49 O2 Sat by Pulse Oximetry 96 07/02/17 07:49 Pain Scale Pain Intensity 0 - Physical Exam General Appearance: no apparent distress, alert Eye Exam: PERRL/EOMI, eyes nml inspection Ears, Nose, Throat Exam: normal ENT inspection, pharynx normal, moist mucous membranes Neck Exam: normal inspection, non-tender, supple, full range of motion Respiratory Exam: normal breath sounds, lungs clear, No respiratory distress Cardiovascular Exam: regular rate/rhythm, normal heart sounds Gastrointestinal/Abdomen Exam: soft, other (hypoactive BS), No normal bowel sounds, No tenderness, No mass Back Exam: normal inspection, normal range of motion, No CVA tenderness, No vertebral tenderness Extremity Exam: normal inspection, normal range of motion, pelvis stable Neurologic Exam: alert, oriented x 3, cooperative, normal mood/affect, nml cerebellar function, sensation nml, No motor deficits Skin Exam: normal color, warm, dry SpO2 Interpretation: normal SpO2: 96 Oxygen Delivery: Room Air - Course Nursing assessment & vital signs reviewed: Yes Ordered Tests: Active Orders 24 hr Category Date Time Status IV Insertion STAT Care 07/02/17 08:04 Active NPO (ED) STAT Care 07/02/17 08:04 Active ABDOMEN AND PELVIS W CONTRAST [CT] Stat Exams 07/02/17 08:05 Completed CHEST 2 VIEWS (PA AND LAT) Stat Exams 07/02/17 Completed AMYLASE Stat Lab 07/02/17 08:15 Completed CBC W DIFF Stat Lab 07/02/17 08:15 Completed CMP Stat Lab 07/02/17 08:15 Completed CULTURE,URINE Stat Lab 07/02/17 08:15 Received HCG QUALITATIVE,SERUM Stat Lab 07/02/17 08:15 Completed LIPASE Stat Lab 07/02/17 08:15 Completed Lactic Acid Stat Lab 07/02/17 Completed UA W/ MICROSCOPIC Stat Lab 07/02/17 08:15 Completed Medication Summary Generic Name Dose Route Start Last Admin Trade Name Freq PRN Reason Stop Dose Admin Pantoprazole Sodium 40 mg 07/02/17 12:09 Protonix 40 Mg Iv IV 07/02/17 12:10 STAT ONE Discontinued Medications Generic Name Dose Route Start Last Admin Trade Name Freq PRN Reason Stop Dose Admin Sodium Chloride 1,000 mls @ 999 mls/hr 07/02/17 08:04 07/02/17 08:10 Sodium Chloride 0.9% 1000 Ml IV 07/02/17 09:04 999 mls/hr .Q1H1M STA Administration Sodium Chloride Confirm 07/02/17 08:10 Sodium Chloride 0.9% 1000 Ml Administered 07/02/17 08:11 Dose 1,000 mls @ ud .ROUTE .STK-MED ONE Sodium Chloride Confirm 07/02/17 10:15 Sodium Chloride 0.9% 1000 Ml Administered 07/02/17 10:16 Dose 1,000 mls @ ud .ROUTE .STK-MED ONE Lorazepam 0.5 mg 07/02/17 10:06 07/02/17 10:10 Ativan 2 Mg/1 Ml Vial IV 07/02/17 10:07 0.5 mg STAT ONE Administration Lorazepam Confirm 07/02/17 10:08 Ativan 2 Mg/1 Ml Vial Administered 07/02/17 10:09 Dose 2 mg .ROUTE .STK-MED ONE Ondansetron HCl 8 mg 07/02/17 08:04 07/02/17 08:10 Zofran 4 Mg/2 Ml Vial IV 07/02/17 08:05 8 mg STAT ONE Administration Ondansetron HCl Confirm 07/02/17 08:10 Zofran 4 Mg/2 Ml Vial Administered 07/02/17 08:11 Dose 8 mg .ROUTE .STK-MED ONE Promethazine HCl 25 mg 07/02/17 11:44 07/02/17 11:55 Phenergan 25 Mg Inj IV 07/02/17 11:45 25 mg STAT ONE Administration Promethazine HCl Confirm 07/02/17 11:54 Phenergan 25 Mg Inj Administered 07/02/17 11:55 Dose 25 mg .ROUTE .STK-MED ONE Lab/Rad Data: Laboratory Result Diagrams 07/02/17 08:15 07/02/17 08:15 Laboratory Results 07/02/17 07/02/17 07/02/17 Range/Units Unknown 08:15 08:15 WBC (4.0-10.5) K/mm3 RBC (4.1-5.4) M/mm3 Hgb (12.0-16.0) gm/dl Hct (35-47) % MCV (78-100) fl MCH (26-32) pg MCHC (32-36) g/dl RDW (11.5-14.0) % Plt Count (150-450) K/mm3 MPV (6-9.5) fl Gran % (36.0-66.0) % Lymphocytes % (24.0-44.0) % Monocytes % (0.0-12.0) % Eosinophils % (0.00-5.0) % Basophils % (0.0-0.4) % Basophils # (0-0.4) Sodium (136-145) mEq/L Potassium (3.5-5.1) mEq/L Chloride (98-107) mEq/L Carbon Dioxide (21-32) mEq/L Anion Gap (5-15) MEQ/L BUN (9-20) mg/dL Creatinine (0.55-1.30) mg/dl Estimated GFR ML/MIN Glucose (70-110) MG/DL Lactic Acid 1.2 (0.4-2.0) Calcium (8.5-10.1) mg/dL Total Bilirubin (0.2-1.0) mg/dL AST (15-37) U/L ALT (12-78) U/L Alkaline Phosphatase (46-116) U/L Serum Total Protein (6.4-8.2) gm/dL Albumin (3.4-5.0) g/dL Amylase (25-115) U/L Lipase (73-393) U/L Serum , Qual NEGATIVE (Negative) Ur Collection Type VOID Urine Color DARK YELLOW (YELLOW) Urine Appearance CLOUDY (CLEAR) Urine pH 5.0 (5-6) Ur Specific [place] 1.025 (1.005-1.025) Urine Protein 30 (Negative) Urine Ketones LARGE (NEGATIVE) Urine Blood LARGE (0-5) Jaswinder/ul Urine Nitrite NEGATIVE (NEGATIVE) Urine Bilirubin NEGATIVE (NEGATIVE) Urine Urobilinogen NORMAL (0-1) mg/dL Ur Leukocyte Esterase NEGATIVE (NEGATIVE) Urine Microscopic RBC 10-15 (0-2) /HPF Urine Microscopic WBC 2-5 (0-5) /HPF Ur Epithelial Cells MANY (FEW) /HPF Urine Bacteria MANY (NEGATIVE) /HPF Urine Mucus SLIGHT (NEGATIVE) /HPF Urine Glucose NEGATIVE (NEGATIVE) mg/dL Specimen Received 07/02/17 0815 07/02/17 07/02/17 Range/Units 08:15 08:15 WBC 10.9 H (4.0-10.5) K/mm3 RBC 5.62 H (4.1-5.4) M/mm3 Hgb 13.8 (12.0-16.0) gm/dl Hct 42.6 (35-47) % MCV 75.8 L (78-100) fl MCH 24.5 L (26-32) pg MCHC 32.4 (32-36) g/dl RDW 15.8 H (11.5-14.0) % Plt Count 446 (150-450) K/mm3 MPV 10.6 H (6-9.5) fl Gran % 85.4 H (36.0-66.0) % Lymphocytes % 10.4 L (24.0-44.0) % Monocytes % 3.9 (0.0-12.0) % Eosinophils % 0.1 (0.00-5.0) % Basophils % 0.2 (0.0-0.4) % Basophils # 0.02 (0-0.4) Sodium 142 (136-145) mEq/L Potassium 3.7 (3.5-5.1) mEq/L Chloride 103 (98-107) mEq/L Carbon Dioxide 25.9 (21-32) mEq/L Anion Gap 16.4 H (5-15) MEQ/L BUN 19 (9-20) mg/dL Creatinine 0.88 (0.55-1.30) mg/dl Estimated GFR > 60 ML/MIN Glucose 136 H (70-110) MG/DL Lactic Acid (0.4-2.0) Calcium 9.3 (8.5-10.1) mg/dL Total Bilirubin 0.70 (0.2-1.0) mg/dL AST 9 L (15-37) U/L ALT 19 (12-78) U/L Alkaline Phosphatase 147 H (46-116) U/L Serum Total Protein 8.2 (6.4-8.2) gm/dL Albumin 4.3 (3.4-5.0) g/dL Amylase 40 (25-115) U/L Lipase 90 (73-393) U/L Serum , Qual (Negative) Ur Collection Type Urine Color (YELLOW) Urine Appearance (CLEAR) Urine pH (5-6) Ur Specific [place] (1.005-1.025) Urine Protein (Negative) Urine Ketones (NEGATIVE) Urine Blood (0-5) Jaswinder/ul Urine Nitrite (NEGATIVE) Urine Bilirubin (NEGATIVE) Urine Urobilinogen (0-1) mg/dL Ur Leukocyte Esterase (NEGATIVE) Urine Microscopic RBC (0-2) /HPF Urine Microscopic WBC (0-5) /HPF Ur Epithelial Cells (FEW) /HPF Urine Bacteria (NEGATIVE) /HPF Urine Mucus (NEGATIVE) /HPF Urine Glucose (NEGATIVE) mg/dL Specimen Received - Progress Progress: improved Progress Note: 07/02/17 12:09 Pt feels better after receiving zofran and phenergan. The labs including electrolytes are within normal limits. The CT scan abd/pelvis shows mild colitis. Pt will be d/c home on short course of zofran and will F/U with GI. - Departure Time of Disposition: 12:11 Departure Disposition: Home Clinical Impression: Vomiting Qualifiers: Vomiting type: unspecified Vomiting Intractability: unspecified Nausea presence : with nausea Qualified Code(s): R11.2 - Nausea with vomiting, unspecified Condition: Stable Critical Care Time: No Referrals: NOE ALEMAN [Primary Care Provider] - Instructions: Vomiting -- Adult, Nausea -- Adult Additional Instructions: Follow up with your mat puncher for vomiting and additional recommendations. Prescriptions: Ondansetron [Zofran Odt] 4 mg PO Q6HPRN PRN #15 tab.rapdis PRN Reason: Nausea/Vomiting
[2017-07-02 08:24] LABS: Collection Type VOID; Leukocyte Esterase NEGATIVE (NEGATIVE)
[2017-07-02 08:25] LABS: Bilirubin NEGATIVE (NEGATIVE); Blood LARGE Ery/ul (0-5); COMPLETE URINE MICROSCOPIC? YES; Glucose NEGATIVE (NEGATIVE)
[2017-07-02 08:28] LABS: ADD URINE CULTURE? YES (NO); Bacteria MANY /HPF (NEGATIVE); Epithelial Cells MANY /HPF (FEW); Mucus SLIGHT /HPF (NEGATIVE)
[2017-07-02 08:33] LABS: BASOPHIL % 0.2 % (0.0-0.4); Eosinophil % 0.1 % (0.00-5.0); Granulocytes % 85.4 % (36.0-66.0); Lymphocytes % 10.4 % (24.0-44.0); Mean Cell Volume 75.8 fl (78-100); Mean Platelet Volume 10.6 fl (6-9.5); Monocytes % 3.9 % (0.0-12.0); Platelet Count 446 K/mm3 (150-450); Red Blood Count 5.62 M/mm3 (4.1-5.4); Red Cell Distribution Width 15.8 % (11.5-14.0); White Blood Count 10.9 K/mm3 (4.0-10.5)
[2017-07-02 08:34] LABS: Mean Corpuscular Hemoglobin 24.5 pg (26-32)
[2017-07-02 08:53] LABS: ALBUMIN 4.3 g/dL (3.4-5.0); ALKALINE PHOSPHATASE 147 U/L (46-116); ANION GAP 16.4 MEQ/L (5-15); BLOOD UREA NITROGEN 19 mg/dL (9-20); CHLORIDE 103 mEq/L (98-107); Carbon Dioxide 25.9 mEq/L (21-32); Glucose 136 MG/DL (70-110); LIPASE 90 U/L (73-393); Potassium 3.7 mEq/L (3.5-5.1); SGOT/AST 9 U/L (15-37); SGPT/ALT 19 U/L (12-78); SODIUM 142 mEq/L (136-145); Total Protein 8.2 gm/dL (6.4-8.2)
[2017-07-02] MEDS ORDERED: Ativan 2 MG/1 ML VIAL IV ONE (10:06)
[2017-07-02] MEDS ORDERED: Ativan 2 MG/1 ML VIAL ONE (10:08)
--- NOTE | 2017-07-02 11:18 | XRAY ---
Indication: Dizziness. Comparison: April 11, 2017. PA/lateral chest remains hyperinflated and clear. Heart is not enlarged. Bony thorax intact. Impression: Stable nonacute hyperinflated chest.
[2017-07-02] MEDS ORDERED: Phenergan 25 MG INJ IV ONE (11:44)
[2017-07-02] MEDS ORDERED: Phenergan 25 MG INJ ONE (11:54)
[2017-07-02 11:56] VITALS: PULSE 88
--- NOTE | 2017-07-02 12:00 | XRAY ---
Indication: Nausea and vomiting. Small bowel obstruction. Multiple contiguous axial images obtained through the abdomen and pelvis using 80 cc Isovue 370 contrast only. Comparison: None Lung bases clear. Heart is not enlarged. Small hiatal hernia. Noncontrasted stomach and bowel loops appear nonobstructed. There is mild circumferential wall thickening involving the distal descending and proximal sigmoid colon with minimal pericolonic stranding favoring colitis. No free fluid/air. Normal appendix. Spleen is enlarged measuring 16.3 cm in greatest axial dimension. Remaining liver, gallbladder, pancreas, spleen, adrenal glands, kidneys, ureters, bladder, uterus, and aorta appear unremarkable. No pathologic retroperitoneal lymphadenopathy. Osseous structures intact. Small fatty umbilical hernia. Impression: 1. Mild colitis involving the descending and sigmoid colon without complications. 2. Incidental splenomegaly, small hiatal hernia, and fatty umbilical hernia. CT DI 23.68
[2017-07-02] MEDS ORDERED: PROTONIX 40 MG IV IV ONE ×2 (12:09→12:16)
[2017-07-02 12:43] VITALS: BP 134/76; O2SAT 97
== END 2017-07-02 12:44 | disposition home or self-care (01) ==
LOC: ED 07:32
DX: R11.2 Nausea with vomiting, unspecified (principal)
CPT/HCPCS: 36000; 36415; 71020; 74177; 80053; 81000; 82150; 83605; 83690; 84703; 85025; 87086; 96360; 96374; 96375; 99284; J2060; J2405; J2550

== ENCOUNTER 2017-07-09 12:53 | Observation (INO) | payer OTHER ==
[2017-07-09] MEDS ORDERED: TYLENOL 325 MG PO PRN (13:11)
[2017-07-09] MEDS: Ativan 2 MG/1 ML VIAL IV PRN ×2 (13:40→19:57)
[2017-07-09 14:06] LABS: Mean Cell Volume 76.9 fl (78-100); Mean Corpuscular Hemoglobin 24.9 pg (26-32); Mean Platelet Volume 11.8 fl (6-9.5); Platelet Count 402 K/mm3 (150-450); Red Blood Count 5.54 M/mm3 (4.1-5.4); Red Cell Distribution Width 15.7 % (11.5-14.0); White Blood Count 8.6 K/mm3 (4.0-10.5)
[2017-07-09] MEDS: PROTONIX 40 MG IV IV SCH (14:27)
[2017-07-09] MEDS: Dextrose 5%-NS IV Solution 1000 ML 1,000 ML IV SCH (14:27)
[2017-07-09] MEDS ORDERED: Sodium Chloride 0.9% 1000 ML 1,000 ML ONE (14:41)
[2017-07-09 15:03] LABS: Collection Type CLEAN CATCH
[2017-07-09 15:04] LABS: Bacteria MANY /HPF (NEGATIVE); Bilirubin NEGATIVE (NEGATIVE); Blood 250 Ery/ul (0-5); COMPLETE URINE MICROSCOPIC? YES; Epithelial Cells MANY /HPF (FEW); Glucose NEGATIVE (NEGATIVE); Leukocyte Esterase NEGATIVE (NEGATIVE); Mucus MODERATE /HPF (NEGATIVE); WBC 0-2 /HPF (0-5)
[2017-07-09 15:11] LABS: ALBUMIN 4.2 g/dL (3.4-5.0); ALKALINE PHOSPHATASE 124 U/L (46-116); ANION GAP 15.6 MEQ/L (5-15); BLOOD UREA NITROGEN 10 mg/dL (9-20); CHLORIDE 102 mEq/L (98-107); Carbon Dioxide 27.1 mEq/L (21-32); Glucose 122 MG/DL (70-110); Potassium 3.2 mEq/L (3.5-5.1); SGOT/AST 24 U/L (15-37); SGPT/ALT 26 U/L (12-78); SODIUM 142 mEq/L (136-145); Total Protein 7.9 gm/dL (6.4-8.2)
--- NOTE | 2017-07-09 15:14 | CONS ---
CONSULT DATE: 07/09/2017 HISTORY: This is a 41 year-old female who has had nausea and vomiting in bouts since March 2017. She has lost about 40 lbs. She said that sometimes she vomits where she cannot control it. However other times she feels a nauseous feeling in her stomach so she forces herself to vomit and she states that it is making her feel like she is bulimic but she does not want to be bulimic. She does not have any abdominal pain. She has no diarrhea. She has no blood in her vomit. She has no blood in her stool. She does not have any other symptoms. PAST MEDICAL HISTORY: Ulcerative colitis. PAST SURGICAL HISTORY: Tubal ligation, section. She had a colonoscopy about eight years ago. MEDICATIONS: Asacol. ALLERGIES: CECLOR. SOCIAL HISTORY: No tobacco. No alcohol use. FAMILY HISTORY: The patient denies any inflammatory bowel disease, no cancers or bleeding issues. No other medical problems in the family. LAB DATA AND TESTS: White blood cell count 8.6, hemoglobin 13.8, PLT count 452,000. CT scan results are pending. PHYSICAL EXAMINATION: GENERAL: No acute distress. CVS: Regular rate and rhythm. PULMONARY: Nonlabored respirations. ABDOMEN: Soft, nontender, nondistended. EXTREMITIES: Normal. ASSESSMENT AND PLAN: This is a 41 year-old female who has had persistent nausea and vomiting in bouts over the past few months. She has lost about 40 lbs. She does need an EGD. I am awaiting her CT scan results at this time and will plan for EGD. I discussed all of the risks, benefits, alternatives regarding this procedure with the patient. She understands and agrees. We will plan to proceed once we have our CT scan results.
--- NOTE | 2017-07-09 16:25 | XRAY ---
Exam: CT of the abdomen and pelvis without IV contrast from 07/09/2017. CTDI: 23.68 Comparison: CT of the abdomen and pelvis without IV contrast from 07/02/2017. Indication: Nausea and vomiting 9 days. The patient has a history of ulcerative colitis. She also has a history of a prior tubal ligation 8 years ago. Technique: Non-IV contrast axial images were obtained through the abdomen and pelvis without IV contrast material. Reconstructed coronal and sagittal images were created and reviewed. Findings: The lung bases are clear. The heart size is normal. The liver appears normal. The gallbladder is distended and reveals no dense calcifications within it. The spleen is mildly enlarged measuring about 15.4 cm in greatest transverse diameter on axial image #21. This is unchanged. No splenic mass is seen. The pancreas and adrenal glands appear normal. Both kidneys are of unremarkable size and shape. No renal calculi, hydronephrosis, or gross mass is seen. I again see a small fat-containing umbilical hernia. No free intraperitoneal air is seen. No abdominal aortic aneurysm is seen. The patient is morbidly obese. No abnormal retroperitoneal lymphadenopathy is seen. I see no evidence of abnormal bowel distention. However, I again see some abnormal concentric bowel wall thickening within the descending colon with subtle pericolonic stranding. This is essentially unchanged from 07/02/2017. There may be some subtle bowel wall thickening within the proximal sigmoid colon as well. No other bowel wall thickening is seen. These findings are likely due to the patient's ulcerative colitis. No abscess or fluid collection is seen. The appendix is identified and appears normal. The uterus is anteflexed. The urinary bladder is essentially empty. No pelvic adnexal mass or abnormal pelvic lymph nodes are seen. I can identify each ovary which appears of unremarkable size, shape, and attenuation. No free fluid is seen within the pelvis. The skeleton reveals no acute fracture or aggressive bone lesion. Impression: 1. Previously noted small hiatal hernia is not seen on the current CT suggesting that the hiatal hernia is reducible. 2. Mild splenomegaly and a small fat-containing umbilical hernia are again seen. 3. Mild concentric wall thickening is seen throughout the descending colon as well as a portion of the proximal sigmoid colon. Subtle pericolonic stranding is seen at these sites. This is essentially unchanged and believed to be due to the patient's known ulcerative colitis. I see no evidence of bowel perforation or abscess within the abdomen or pelvis. 4. Normal appendix. 5. The uterus and ovaries appear unremarkable. No other acute process is seen within the abdomen or pelvis.
[2017-07-09] MEDS ORDERED: PHENERGAN 25 MG PO PRN (17:06)
[2017-07-09] MEDS: POTASSIUM CHLORIDE 20 mEq IN WATER 100ML 20 MEQ/100 ML BAG IV SCH ×2 (17:25→20:21)
[2017-07-09] MEDS: Carafate 1 GM PO SCH ×2 (17:26→21:30)
[2017-07-09] MEDS: Macrobid 100MG Capsule PO SCH (17:26)
[2017-07-09] MEDS: ASACOL HD PO SCH ×2 (17:27→21:30)
[2017-07-09] MEDS: Zofran 4 MG/2 ML VIAL IV PRN (17:36)
[2017-07-09] MEDS ORDERED: SUBLIMAZE 100 MCG/2 ML IV ONE (18:14)
[2017-07-09] MEDS ORDERED: DEMEROL 50 MG IV ONE (18:14)
[2017-07-09] MEDS ORDERED: VERSED 5 MG/5 ML IV ONE (18:14)
[2017-07-09] MEDS: ceLEXa 20 MG PO SCH (18:14)
[2017-07-09] MEDS ORDERED: MESALAMINE 1600 MG PO SCH (22:00)
[2017-07-10] MEDS: Dextrose 5%-NS IV Solution 1000 ML 1,000 ML IV SCH ×2 (01:44→10:56)
[2017-07-10] MEDS: Ativan 2 MG/1 ML VIAL IV PRN ×3 (01:52→14:37)
[2017-07-10] MEDS: Zofran 4 MG/2 ML VIAL IV PRN (05:35)
[2017-07-10] MEDS: Carafate 1 GM PO SCH ×3 (07:31→16:45)
[2017-07-10] MEDS: Macrobid 100MG Capsule PO SCH ×2 (08:28→17:03)
[2017-07-10] MEDS: ASACOL HD PO SCH ×2 (10:37→14:42)
[2017-07-10] MEDS: PROTONIX 40 MG IV IV SCH (10:38)
[2017-07-10] MEDS: ceLEXa 20 MG PO SCH (10:38)
[2017-07-10] MEDS: POTASSIUM CHLORIDE 20 mEq IN WATER 100ML 20 MEQ/100 ML BAG IV SCH ×2 (10:58→13:04)
[2017-07-10] MEDS: IMODIUM 2 MG PO PRN ×2 (11:38→14:37)
--- NOTE | 2017-07-10 12:05 | PCM.NOTE ---
Date and Time: 07/10/17 1202 Subjective Assessment: still c/o diarrhea, abdominal cramps - Review of Systems Constitutional: No Fever, No Chills Eyes: No Symptoms Ears, Nose, & Throat: No Symptoms Respiratory: No Cough, No Short Of Breath Cardiac: No Chest Pain, No Edema, No Syncope Abdominal/Gastrointestinal: Abdominal Pain, Diarrhea, No Nausea, No Vomiting, No Constipation Genitourinary Symptoms: No Dysuria Musculoskeletal: No Back Pain, No Neck Pain Skin: No Rash Neurological: No Dizziness, No Focal Weakness, No Sensory Changes Psychological: No Symptoms Endocrine: No Symptoms Hematologic/Lymphatic: No Symptoms Immunological/Allergic: No Symptoms Objective Exam General Appearance: no apparent distress, alert Neurologic Exam: alert, oriented x 3, cooperative, normal mood/affect, nml cerebellar function, sensation nml, No motor deficits Skin Exam: normal color, warm, dry Eye Exam: PERRL, EOMI, eyes nml inspection Ears, Nose, Throat Exam: normal ENT inspection, pharynx normal, moist mucous membranes Neck Exam: normal inspection, non-tender, supple, full range of motion Respiratory Exam: normal breath sounds, lungs clear, No respiratory distress Cardiovascular Exam: regular rate/rhythm, normal heart sounds Gastrointestinal/Abdomen Exam: soft, normal bowel sounds, No tenderness, No distention, No mass, No rebound Extremity Exam: normal inspection, normal range of motion Back Exam: normal inspection, normal range of motion, No CVA tenderness, No vertebral tenderness Pelvic Exam: deferred Rectal Exam: deferred OBJECTIVE DATA Vital Signs: Vital Signs - 24 hr Temp Pulse Resp BP Pulse Ox 07/10/17 08:00 98.1 F 84 20 117/59 94 L 07/10/17 03:56 98.6 F 81 18 115/60 95 07/10/17 00:00 98.5 F 87 20 114/63 96 07/09/17 19:05 98.5 F 69 16 128/83 97 07/09/17 18:05 98.2 F 75 14 125/87 97 07/09/17 17:05 98.8 F 20 L 20 142/78 95 07/09/17 16:34 98.1 F 67 20 124/75 93 L 07/09/17 16:10 97.9 F 79 20 136/82 97 07/09/17 15:55 97.9 F 82 16 135/86 96 07/09/17 14:49 98 F 107 H 16 131/91 95 07/09/17 13:39 98 F 107 H 16 131/91 95 Pain Assessment - Last Documented Pain Intensity 0 Pain Scale Used 0-10 Pain Scale Intake and Output: Intake & Output 07/08/17 07/09/17 07/10/17 07/11/17 11:59 11:59 11:59 11:59 Intake Total 3278 Output Total 60 Balance 3218 Weight 119.522 kg Lab Results: Lab Results-Last 24 Hours 07/09/17 07/09/17 07/09/17 Range/Units 13:15 13:30 13:30 WBC 8.6 (4.0-10.5) K/mm3 RBC 5.54 H (4.1-5.4) M/mm3 Hgb 13.8 (12.0-16.0) gm/dl Hct 42.6 (35-47) % MCV 76.9 L (78-100) fl MCH 24.9 L (26-32) pg MCHC 32.4 (32-36) g/dl RDW 15.7 H (11.5-14.0) % Plt Count 402 (150-450) K/mm3 MPV 11.8 H (6-9.5) fl Sodium 142 (136-145) mEq/L Potassium 3.2 L (3.5-5.1) mEq/L Chloride 102 (98-107) mEq/L Carbon Dioxide 27.1 (21-32) mEq/L Anion Gap 15.6 H (5-15) MEQ/L BUN 10 (9-20) mg/dL Creatinine 1.03 (0.55-1.30) mg/dl Estimated GFR > 60 ML/MIN Glucose 122 H (70-110) MG/DL Calcium 9.3 (8.5-10.1) mg/dL Total Bilirubin 0.60 (0.2-1.0) mg/dL AST 24 (15-37) U/L ALT 26 (12-78) U/L Alkaline Phosphatase 124 H (46-116) U/L Serum Total Protein 7.9 (6.4-8.2) gm/dL Albumin 4.2 (3.4-5.0) g/dL Lipase (73-393) U/L Ur Collection Type Urine Color (YELLOW) Urine Appearance (CLEAR) Urine pH (5-6) Ur Specific [place] (1.005-1.025) Urine Protein (Negative) Urine Ketones (NEGATIVE) Urine Blood (0-5) Jaswinder/ul Urine Nitrite (NEGATIVE) Urine Bilirubin (NEGATIVE) Urine Urobilinogen (0-1) mg/dL Ur Leukocyte Esterase (NEGATIVE) Urine Microscopic RBC (0-2) /HPF Urine Microscopic WBC (0-5) /HPF Ur Epithelial Cells (FEW) /HPF Urine Bacteria (NEGATIVE) /HPF Urine Mucus (NEGATIVE) /HPF Urine Glucose (NEGATIVE) mg/dL Urine Opiates Level NEG. (NEGATIVE) Ur Methadone NEG. (NEGATIVE) Urine Barbiturates NEG. (NEGATIVE) Ur Phencyclidine (PCP) NEG. (NEGATIVE) Urine Amphetamine NEG. (NEGATIVE) U Benzodiazepine Level POS. (NEGATIVE) Urine Cocaine NEG. (NEGATIVE) Urine Marijuana (THC) NEG. (NEGATIVE) Specimen Received 07/09/17 07/09/17 07/10/17 Range/Units 13:30 13:30 05:15 WBC (4.0-10.5) K/mm3 RBC (4.1-5.4) M/mm3 Hgb (12.0-16.0) gm/dl Hct (35-47) % MCV (78-100) fl MCH (26-32) pg MCHC (32-36) g/dl RDW (11.5-14.0) % Plt Count (150-450) K/mm3 MPV (6-9.5) fl Sodium (136-145) mEq/L Potassium 3.2 L (3.5-5.1) mEq/L Chloride (98-107) mEq/L Carbon Dioxide (21-32) mEq/L Anion Gap (5-15) MEQ/L BUN (9-20) mg/dL Creatinine (0.55-1.30) mg/dl Estimated GFR ML/MIN Glucose (70-110) MG/DL Calcium (8.5-10.1) mg/dL Total Bilirubin (0.2-1.0) mg/dL AST (15-37) U/L ALT (12-78) U/L Alkaline Phosphatase (46-116) U/L Serum Total Protein (6.4-8.2) gm/dL Albumin (3.4-5.0) g/dL Lipase 120 (73-393) U/L Ur Collection Type CLEAN CATCH Urine Color ORANGE (YELLOW) Urine Appearance CLOUDY (CLEAR) Urine pH 5.0 (5-6) Ur Specific [place] 1.020 (1.005-1.025) Urine Protein TRACE (Negative) Urine Ketones NEGATIVE (NEGATIVE) Urine Blood 250 (0-5) Jaswinder/ul Urine Nitrite NEGATIVE (NEGATIVE) Urine Bilirubin NEGATIVE (NEGATIVE) Urine Urobilinogen 1 (0-1) mg/dL Ur Leukocyte Esterase NEGATIVE (NEGATIVE) Urine Microscopic RBC 0-2 (0-2) /HPF Urine Microscopic WBC 0-2 (0-5) /HPF Ur Epithelial Cells MANY (FEW) /HPF Urine Bacteria MANY (NEGATIVE) /HPF Urine Mucus MODERATE (NEGATIVE) /HPF Urine Glucose NEGATIVE (NEGATIVE) mg/dL Urine Opiates Level (NEGATIVE) Ur Methadone (NEGATIVE) Urine Barbiturates (NEGATIVE) Ur Phencyclidine (PCP) (NEGATIVE) Urine Amphetamine (NEGATIVE) U Benzodiazepine Level (NEGATIVE) Urine Cocaine (NEGATIVE) Urine Marijuana (THC) (NEGATIVE) Specimen Received 07-09 1430 Radiology Exams: Radiology Procedures Category Date Time Status ABDOMEN AND PELVIS W/0 CONTRAS [CT] Urgent Exams 07/09/17 13:14 Completed Assessment/Plan (1) Ulcerative colitis Current Visit: Yes Status: Acute Qualifiers: Ulcerative colitis location: unspecified ulcerative colitis location Digestive disease complication type: without complication Qualified Code(s): K51.90 - Ulcerative colitis, unspecified, without complications Assessment & Plan: surgery consult reviewed, will continue present management Code(s): K51.90 - ULCERATIVE COLITIS, UNSPECIFIED, WITHOUT COMPLICATIONS (2) Vomiting and diarrhea Current Visit: Yes Status: Acute Assessment & Plan: improving Code(s): R11.10 - VOMITING, UNSPECIFIED; R19.7 - DIARRHEA, UNSPECIFIED
[2017-07-10 12:06] VITALS: O2SAT 98
[2017-07-10 17:22] VITALS: BP 127/58; PULSE 81
--- NOTE | 2017-07-11 09:09 | OP ---
PROCEDURE DATE/TIME: 07/09/2017 1505 PREOPERATIVE DIAGNOSIS: Nausea and vomiting. POSTOPERATIVE DIAGNOSES: 1) Mild gastritis. 2) Reflux disease. PROCEDURE: EGD with biopsy. PROCEDURE PERFORMED BY: Cherrie Ly M.D. ESTIMATED BLOOD LOSS: Minimal. ANESTHESIA: IV sedation, 50 of Demerol, 200 of Fentanyl, 5 of Versed. The patient was awake, coherent, following commands throughout the entire procedure. SPECIMEN: Antral biopsy. CONDITION: Satisfactory. COMPLICATIONS: None. HISTORY: This is a female who presented with nausea and vomiting to the hospital. She believed that it was mainly due to her anxiety but she had not had an upper scope and I had been consulted for EGD due to the persistent nausea and vomiting and she has also lost some weight. She does not have any pain in her abdomen currently. On her CT scan there is a small amount of thickening in the descending colon this appears chronic and is on all of her scans that she had over many year time. She does have a history of ulcerative colitis and this appears to be consistent with that. Regarding her stomach on CT scan this looks normal. She does not have any free air. She does have any other significant findings except for the thickening of her colon. The patient is already set up for outpatient colonoscopy with Dr. Pickering next month and I did urge her to keep this appointment because I do think outpatient colonoscopy is necessary in her as she has not had a colonoscopy for many years and she does have ulcerative colitis so she is going to plan to keep this appointment and continue with this treatment plan with her GI doctor who manages her ulcerative colitis. At this time due to the nausea and vomiting, we will proceed with EGD. I have discussed with her all risks, benefits, alternatives regarding EGD. She has been NPO. She understands. She would like to proceed with the procedure today. DESCRIPTION OF PROCEDURE: The patient was then taken back to the endoscopy suite. Anesthesia was induced. She was laid in the left lateral decubitus position. We used IV sedation. The patient was sedated but was awake, coherent and talking to me and nodding throughout the procedure appropriately. She was comfortable. We did our complete time out. The scope was then entered into the mouth, oropharynx and down into the esophagus, stomach and into the duodenum. Her duodenum looked normal. In the stomach she had mild gastritis throughout her stomach. I took an antral biopsy to rule out any Helicobacter pylori disease and this was sent to pathology. The site was hemostatic after biopsy. We did also retroflex. Mild amount of gastritis throughout the upper portion of the stomach as well. The scope was then carefully withdrawn. The patient had mild reflux disease also very mild here and the scope was completely removed. The patient tolerated the procedure very well. There were no immediate complications. Due to the finding of the gastritis, I will continue her on her proton pump inhibitor therapy as well as give her a prescription for Carafate to see if this will help with her nausea and vomiting symptoms. She also may continue to follow up with Dr. Pickering and she will see me in the office as well in approximately two weeks to discuss the biopsy results. She tolerated the procedure well. There were no immediate complications. We will plan to repeat the EGD on a PRN basis.
== END 2017-07-10 18:15 | disposition home or self-care (01) ==
LOC: MED SURG 12:53
PROVIDERS: ADMIT General Practice; ATTEND General Practice
PROC: 0DB78ZX Excision of Stomach, Pylorus, Via Natural or Artificial Opening Endoscopic, Diagnostic (ICD-10-PCS; principal; 2017-07-09)
DX: K29.70 Gastritis, unspecified, without bleeding (principal); K21.9 Gastro-esophageal reflux disease without esophagitis; K51.90 Ulcerative colitis, unspecified, without complications; K52.3 Indeterminate colitis; E80.6 Other disorders of bilirubin metabolism; F41.9 Anxiety disorder, unspecified; J45.998 Other asthma; E66.01 Morbid (severe) obesity due to excess calories; Z79.899 Other long term (current) drug therapy
CPT/HCPCS: 36415; 74176; 80053; 80307; 81000; 83690; 84132; 85027; 88305; 93268; G0378; J2060; J2175; J2250; J2405; J3010; J3480; A9270-GY

== ENCOUNTER 2017-08-04 23:19 | Emergency (ER) | payer OTHER ==
[2017-08-04 23:29] VITALS: O2SAT 98
[2017-08-04] MEDS ORDERED: Tylenol #3 Tablet PO ONE (23:34)
[2017-08-04] MEDS ORDERED: Tylenol #3 Tablet ONE (23:37)
--- NOTE | 2017-08-04 23:42 | ERPHSYRPT ---
- History of Present Illness Time Seen by Provider: 08/04/17 23:28 Source: patient Exam Limitations: clinical condition Patient Subjective Stated Complaint: Pt sts fell down stairs outside x 2, sts left ankle pain and left foot pain after falling. Pt with pain 6/10. Swelling left ankle. Also C/O right knee pain. Denies LOC. Triage Nursing Assessment: Pt alert, oriented, answers all questions appropriately. Skin pink, warm, dry. Resps non-labored. Pt to room per wheelchair, transfers with assist x 1 from wheelchair to bed. Swelling noted left lateral ankle with dried blood noted to ankle. Pt with decreased ROM left ankle. Physician History: PATIENT SLIPPED DOWN STEPS SUSTAINED INJURY TO OUTER ASPECT OF LEFT ANKLE, FOOT AND RIGHT KNEE PAIN. DENIES ASSOCIATED HEAD, NECK OR BACK INJURY. Occurred: just prior to arrival Reason for Fall: slipped, tripped Injuries/Pain Location: lower extremity Loss of Consciousness: no loss of consciousness Quality: throbbing Severity of Pain-Max: moderate Severity of Pain-Current: moderate Associated Symptoms (Fall): denies symptoms Allergies/Adverse Reactions: cefaclor [From Ceclor] Allergy (Intermediate, Verified 08/04/17 23:20) Hives Home Medications: Citalopram Hydrobromide [Citalopram HBr] 40 mg PO DAILY 07/09/17 [History] Mesalamine [Asacol] 800 mg PO QID 07/09/17 [History] Promethazine HCl 25 mg [Phenergan 25 mg] 25 mg PO Q6HPRN PRN 07/09/17 [ History] Hx Tetanus, Diphtheria Vaccination/Date Given: Yes Hx Influenza Vaccination/Date Given: No Hx Pneumococcal Vaccination/Date Given: No Immunizations Up to Date: Yes - Review of Systems Constitutional: No Symptoms Musculoskeletal: Injury, Joint Pain, Joint Swelling Neurological: No Symptoms Psychological: No Symptoms - Past Medical History Pertinent Past Medical History: Yes Neurological History: No Pertinent History ENT History: No Pertinent History Cardiac History: No Pertinent History Respiratory History: Asthma Endocrine Medical History: No Pertinent History Musculoskeletal History: No Pertinent History GI Medical History: Colitis, Other History: No Pertinent History Psycho-Social History: Anxiety, Depression Female Reproductive Disorders: No Pertinent History Other Medical History: ULCERATIVE COLITIS,ANEMIA - Past Surgical History Past Surgical History: Yes Neuro Surgical History: No Pertinent History Cardiac: No Pertinent History Respiratory: No Pertinent History Gastrointestinal: No Pertinent History Genitourinary: No Pertinent History Musculoskeletal: No Pertinent History Female Surgical History: Section, Tubal Ligation - Social History Smoking Status: Former smoker How long have you smoked: 10yrs Exposure to second hand smoke: No Drug Use: none Patient Lives Alone: No - Female History Hx Last Menstrual Period: hyst Hx Now: No - Nursing Vital Signs Nursing Vital Signs: Initial Vital Signs Temperature 98.9 F 08/04/17 23:22 Pulse Rate 111 H 08/04/17 23:22 Respiratory Rate 20 08/04/17 23:22 Blood Pressure 124/84 08/04/17 23:22 O2 Sat by Pulse Oximetry 98 08/04/17 23:22 Pain Scale Pain Intensity 8 - Guillermo Coma Score Best Eye Response (Guillermo): (4) open spontaneously Best Verbal Response (Arbon): (5) oriented Best Motor Response (Arbon): (6) obeys commands Guillermo Total: 15 - Physical Exam General Appearance: no apparent distress Head Injury: no evidence of injury Neck Exam: supple, full range of motion (NONTENDER), normal inspection, No tenderness Extremity Exam: normal range of motion (TENDERNESS LEFT FOOT MID 2ND TO 5 TH METATARSALS WITHOUT ECCHYMOSIS OR CREPITUS, LEFT PEDIS PULSE 2 +), joint swelling, limited range of motion (RIGHT KNEE PATELLA WITH SWELLING SUPERIOR ASPECT MOBILE AND MIDLINE, NO JOINT LAXITY UPON VARUS, VALGUS STRESS, NEGATIVE ANTERIOR DRAW SIGN), swelling, tenderness (THE LEFT ANKLE LATERAL MALLEOLUS WITH TENDERNESS, LIMITED RANGE OF MOTION, NO JOINT LAXITY OR ECCHYMOSIS, LEFT PEDIS PULSE 2+) SpO2: 98 Oxygen Delivery: Room Air - Radiology Exams Right Knee X-ray Interpretation: Interpreted by me (DEGENERATIVE ARTHRITIS. NO EVIDENCE OF FRACTURE OR DISLOCATION) Left Ankle X-ray Interpretation: Interpreted by me (AVULSION FRACTURE DISTAL LATERAL MALLEOLUS OF ANKLE) Left Foot X-ray Interpretation: Interpreted by me (FRACTURE DISTAL 3RD ASPECT OF 5TH METATARSAL) Ordered Tests: Active Orders 24 hr Category Date Time Status Crutches STAT Care 08/04/17 23:35 Active ANKLE (3 VIEWS) Stat Exams 08/04/17 23:34 Taken FOOT (MINIMUM 3 VIEWS) Stat Exams 08/04/17 23:34 Taken KNEE (3 VIEWS) Stat Exams 08/04/17 23:35 Taken Medication Summary Discontinued Medications Generic Name Dose Route Start Last Admin Trade Name Patrick PRN Reason Stop Dose Admin Acetaminophen/Codeine Phosphate 2 tab 08/04/17 23:34 08/04/17 23:38 Tylenol #3 Tablet PO 08/04/17 23:35 2 tab STAT ONE Administration Acetaminophen/Codeine Phosphate Confirm 08/04/17 23:37 Tylenol #3 Tablet Administered 08/04/17 23:38 Dose 2 tab .ROUTE .STK-MED ONE - Progress Progress: pain not gone completely Progress Note: 08/04/17 23:43 PATIENT ADMINISTERED TYLENOL #3 X 2 ORALLY, A SHORT LEFT LEG ORTHOGLASS SPLINT APPLIED AND FITTED FOR CRUTCHES 08/05/17 00:40 Counseled pt/family regarding: diagnosis, need for follow-up, rad results - Departure Time of Disposition: 01:00 Departure Disposition: Home Clinical Impression: LEFT ANKLE AVULSION FRACTURE, FRACTURE LEFT FOOT 5TH METATARSAL Condition: Stable Critical Care Time: No Referrals: NOE ALEMAN [Primary Care Provider] - Additional Instructions: AMBULATE USING CRUTCHES NONWEIGHT BEARING LEFT FOOT UNTIL EVALUATED BY DR JEFFERY ORTHOPEDIC SURGEON, CALL HIS OFFICE TOMORROW TO SCHEDULE APPOINTMENT. TAKE COPY OF DISK TO OFFICE. ELEVATE FOOT AND ALL TIMES AND APPLY ICE OVER FOOT AND ANKLE SWELLNG EVERY 4 HOURS, 40 MINUTES FOR 48 HOURS. NORCO 10/325 EVERY 4 HOURS FOR PAIN DISCOMFORT. Prescriptions: Hydrocodone/APAP 10/325 mg [Norden 10/325 MG Tablet] 1 tab PO Q4H PRN PRN # 25 tablet PRN Reason: Pain
[2017-08-05] MEDS ORDERED: NORCO 5/325 MG PO ONE (00:49)
[2017-08-05] MEDS ORDERED: NORCO 5/325 MG ONE (00:53)
[2017-08-05 01:28] VITALS: BP 124/86; PULSE 89
--- NOTE | 2017-08-05 09:10 | XRAY ---
Indication: Pain following fall. Comparison: February 22, 2017. 3 views of the right knee unchanged again demonstrating mild tricompartmental degenerative changes and a fabella. No new/acute bony, articular, or soft tissue abnormalities.
--- NOTE | 2017-08-05 09:12 | XRAY ---
Indication: Pain following fall. Comparison: January 15, 2007. 3 nonweightbearing views of the left foot now demonstrates nondisplaced incomplete fracture involving the distal shaft of the fifth metatarsal with adjacent soft tissue swelling. Small plantar heel spur. No other bony, articular, or soft tissue abnormalities.
--- NOTE | 2017-08-05 09:12 | XRAY ---
Indication: Pain following fall. Comparison: January 15, 2007. 3 views of the left ankle now demonstrates small avulsion fracture involving the tip of the lateral malleolus with adjacent soft tissue swelling. Small plantar heel spur. Left foot reported separately.
== END 2017-08-05 01:44 | disposition home or self-care (01) ==
LOC: ED 23:19
DX: S82.62XA Displaced fracture of lateral malleolus of left fibula, initial encounter for closed fracture (principal); S92.352A Displaced fracture of fifth metatarsal bone, left foot, initial encounter for closed fracture; W10.9XXA Fall (on) (from) unspecified stairs and steps, initial encounter
CPT/HCPCS: 73562; 73610; 73630; 99284; A9270-GY

== ENCOUNTER 2017-10-06 11:06 | Observation (INO) | payer OTHER ==
[2017-10-06] MEDS ORDERED: Sodium Chloride 0.9% 1000 ML 1,000 ML IV STA (11:50)
[2017-10-06] MEDS ORDERED: Zofran 4 MG/2 ML VIAL IV ONE ×2 (11:50→12:45)
[2017-10-06] MEDS ORDERED: Zofran 4 MG/2 ML VIAL ONE ×2 (11:54→12:48)
[2017-10-06] MEDS ORDERED: Sodium Chloride 0.9% 1000 ML 1,000 ML ONE (11:54)
--- NOTE | 2017-10-06 11:54 | ERPHSYRPT ---
- History of Present Illness Time Seen by Provider: 10/06/17 11:52 Historian: patient Exam Limitations: no limitations Patient Subjective Stated Complaint: pt states she had vomiting on 10/03 and 10/04. states she has not vomitied in the past 24 hours but feels weak and nauseated. Triage Nursing Assessment: pt pink, warm, dry. abdomen soft nont ricky, obese. bowel sounds present in all 4 quads. Physician History: mild to mod off and on NV since Friday, no pain, no fever, in injury, not dizzy Allergies/Adverse Reactions: cefaclor [From NovoDynamics] Allergy (Intermediate, Verified 10/06/17 11:24) Hives Home Medications: Citalopram Hydrobromide [Citalopram HBr] 40 mg PO DAILY 07/09/17 [History] Mesalamine [Asacol] 800 mg PO QID 07/09/17 [History] Promethazine HCl 25 mg [Phenergan 25 mg] 25 mg PO Q6HPRN PRN 07/09/17 [ History] Tramadol HCl 50 mg [Ultram 50 mg] 50 mg PO DAILY PRN PRN 10/06/17 [History ] Hx Tetanus, Diphtheria Vaccination/Date Given: Yes (up to date) Hx Influenza Vaccination/Date Given: No Hx Pneumococcal Vaccination/Date Given: No Immunizations Up to Date: Yes - Review of Systems Constitutional: No Fever Eyes: No Symptoms Ears, Nose, & Throat: No Symptoms Respiratory: No Symptoms Cardiac: No Symptoms Abdominal/Gastrointestinal: Nausea, Vomiting, No Abdominal Pain Musculoskeletal: No Back Pain Skin: No Symptoms Neurological: No Symptoms, No Dizziness Psychological: No Symptoms - Past Medical History Pertinent Past Medical History: Yes Neurological History: No Pertinent History ENT History: No Pertinent History Cardiac History: No Pertinent History Respiratory History: Asthma Endocrine Medical History: No Pertinent History Musculoskeletal History: No Pertinent History GI Medical History: Colitis, Other History: No Pertinent History Psycho-Social History: Anxiety, Depression Female Reproductive Disorders: No Pertinent History Other Medical History: ULCERATIVE COLITIS,ANEMIA - Past Surgical History Past Surgical History: Yes Neuro Surgical History: No Pertinent History Cardiac: No Pertinent History Respiratory: No Pertinent History Gastrointestinal: No Pertinent History Genitourinary: No Pertinent History Musculoskeletal: No Pertinent History Female Surgical History: Section, Tubal Ligation - Social History Smoking Status: Light tobacco smoker How long have you smoked: 10yrs Exposure to second hand smoke: No Drug Use: none Patient Lives Alone: No - Female History Hx Last Menstrual Period: 10/05/17 Hx Now: No - Nursing Vital Signs Nursing Vital Signs: Initial Vital Signs Temperature 98.4 F 10/06/17 11:18 Pulse Rate 103 H 10/06/17 11:18 Respiratory Rate 20 10/06/17 11:18 Blood Pressure 145/100 10/06/17 11:18 O2 Sat by Pulse Oximetry 99 10/06/17 11:18 Pain Scale Pain Intensity 0 - Physical Exam General Appearance: no apparent distress Eye Exam: PERRL/EOMI Ears, Nose, Throat Exam: moist mucous membranes Neck Exam: normal inspection Respiratory Exam: normal breath sounds Cardiovascular Exam: regular rate/rhythm Gastrointestinal/Abdomen Exam: soft, No tenderness, No rebound Back Exam: No CVA tenderness Extremity Exam: normal inspection Neurologic Exam: alert, oriented x 3, cooperative Skin Exam: normal color, warm, dry SpO2 Interpretation: normal SpO2: 99 Oxygen Delivery: Room Air - Course Nursing assessment & vital signs reviewed: Yes EKG Interpreted by Me: Other (nsr 60, no stemi) - CT Exams Abdomen/Pelvis CT Interpretation: Discussed w/radiologist, No appendicitis, Other (no obstruction) Ordered Tests: Active Orders 24 hr Category Date Time Status EKG-ER Only STAT Care 10/06/17 11:50 Active IV Insertion STAT Care 10/06/17 11:50 Active cath [Cath for Specimen-Straight] STAT Care 10/06/17 11:56 Active ABDOMEN AND PELVIS W/0 CONTRAS [CT] Stat Exams 10/06/17 12:28 Completed CBC W DIFF Stat Lab 10/06/17 11:20 Completed CMP Stat Lab 10/06/17 11:20 Completed HCG QUALITATIVE,SERUM Stat Lab 10/06/17 11:20 Completed LIPASE Stat Lab 10/06/17 11:20 Completed TROPONIN Q3H Lab 10/06/17 11:20 Completed TROPONIN Q3H Lab 10/06/17 15:00 Ordered TROPONIN Q3H Lab 10/06/17 18:00 Ordered TROPONIN Q3H Lab 10/06/17 21:00 Ordered TROPONIN Q3H Lab 10/07/17 00:00 Ordered UA W/ MICROSCOPIC Stat Lab 10/06/17 11:51 Completed Medication Summary Discontinued Medications Generic Name Dose Route Start Last Admin Trade Name Patrick PRN Reason Stop Dose Admin Sodium Chloride 1,000 mls @ 999 mls/hr 10/06/17 11:50 10/06/17 11:56 Sodium Chloride 0.9% 1000 Ml IV 10/06/17 12:50 999 mls/hr .Q1H1M STA Administration Sodium Chloride Confirm 10/06/17 11:54 Sodium Chloride 0.9% 1000 Ml Administered 10/06/17 11:55 Dose 1,000 mls @ ud .ROUTE .STK-MED ONE Ondansetron HCl 4 mg 10/06/17 11:50 10/06/17 11:56 Zofran 4 Mg/2 Ml Vial IV 10/06/17 11:51 4 mg STAT ONE Administration Ondansetron HCl Confirm 10/06/17 11:54 Zofran 4 Mg/2 Ml Vial Administered 10/06/17 11:55 Dose 4 mg .ROUTE .STK-MED ONE Ondansetron HCl 4 mg 10/06/17 12:45 10/06/17 12:50 Zofran 4 Mg/2 Ml Vial IV 10/06/17 12:46 4 mg STAT ONE Administration Ondansetron HCl Confirm 10/06/17 12:48 Zofran 4 Mg/2 Ml Vial Administered 10/06/17 12:49 Dose 4 mg .ROUTE .STK-MED ONE Lab/Rad Data: Laboratory Result Diagrams 10/06/17 11:20 10/06/17 11:20 Laboratory Results 10/06/17 10/06/17 10/06/17 Range/Units 11:51 11:20 11:20 WBC (4.0-10.5) K/mm3 RBC (4.1-5.4) M/mm3 Hgb (12.0-16.0) gm/dl Hct (35-47) % MCV (78-100) fl MCH (26-32) pg MCHC (32-36) g/dl RDW (11.5-14.0) % Plt Count (150-450) K/mm3 MPV (6-9.5) fl Gran % (36.0-66.0) % Lymphocytes % (24.0-44.0) % Monocytes % (0.0-12.0) % Eosinophils % (0.00-5.0) % Basophils % (0.0-0.4) % Basophils # (0-0.4) Sodium (136-145) mEq/L Potassium (3.5-5.1) mEq/L Chloride (98-107) mEq/L Carbon Dioxide (21-32) mEq/L Anion Gap (5-15) MEQ/L BUN (9-20) mg/dL Creatinine (0.55-1.30) mg/dl Estimated GFR ML/MIN Glucose (70-110) MG/DL Calcium (8.5-10.1) mg/dL Total Bilirubin (0.2-1.0) mg/dL AST (15-37) U/L ALT (12-78) U/L Alkaline Phosphatase (46-116) U/L Troponin I < 0.017 (0.000-0.056) ng/ml Serum Total Protein (6.4-8.2) gm/dL Albumin (3.4-5.0) g/dL Lipase (73-393) U/L Serum , Qual NEGATIVE (Negative) Ur Collection Type CATH Urine Color YELLOW (YELLOW) Urine Appearance SLIGHTLY HAZY (CLEAR) Urine pH 5.0 (5-6) Ur Specific [place] 1.020 (1.005-1.025) Urine Protein TRACE (Negative) Urine Ketones TRACE (NEGATIVE) Urine Blood 50 (0-5) Jaswinder/ul Urine Nitrite NEGATIVE (NEGATIVE) Urine Bilirubin NEGATIVE (NEGATIVE) Urine Urobilinogen NORMAL (0-1) mg/dL Ur Leukocyte Esterase NEGATIVE (NEGATIVE) Urine Microscopic RBC 2-5 (0-2) /HPF Urine Microscopic WBC 0-2 (0-5) /HPF Ur Epithelial Cells FEW (FEW) /HPF Urine Bacteria FEW (NEGATIVE) /HPF Urine Mucus MANY (NEGATIVE) /HPF Urine Culture Reflexed NO (NO) Urine Glucose NEGATIVE (NEGATIVE) mg/dL Specimen Received 10-06 1200 10/06/17 10/06/17 Range/Units 11:20 11:20 WBC 8.1 (4.0-10.5) K/mm3 RBC 5.59 H (4.1-5.4) M/mm3 Hgb 13.3 (12.0-16.0) gm/dl Hct 42.2 (35-47) % MCV 75.5 L (78-100) fl MCH 23.7 L (26-32) pg MCHC 31.5 L (32-36) g/dl RDW 16.2 H (11.5-14.0) % Plt Count 336 (150-450) K/mm3 MPV 11.2 H (6-9.5) fl Gran % 69.8 H (36.0-66.0) % Lymphocytes % 19.7 L (24.0-44.0) % Monocytes % 7.7 (0.0-12.0) % Eosinophils % 2.2 (0.00-5.0) % Basophils % 0.6 (0.0-0.4) % Basophils # 0.05 (0-0.4) Sodium 140 (136-145) mEq/L Potassium 3.5 (3.5-5.1) mEq/L Chloride 102 (98-107) mEq/L Carbon Dioxide 24.9 (21-32) mEq/L Anion Gap 16.8 H (5-15) MEQ/L BUN 17 (9-20) mg/dL Creatinine 0.92 (0.55-1.30) mg/dl Estimated GFR > 60 ML/MIN Glucose 106 (70-110) MG/DL Calcium 9.0 (8.5-10.1) mg/dL Total Bilirubin 0.60 (0.2-1.0) mg/dL AST 14 L (15-37) U/L ALT 21 (12-78) U/L Alkaline Phosphatase 128 H (46-116) U/L Troponin I (0.000-0.056) ng/ml Serum Total Protein 7.5 (6.4-8.2) gm/dL Albumin 3.8 (3.4-5.0) g/dL Lipase 100 (73-393) U/L Serum , Qual (Negative) Ur Collection Type Urine Color (YELLOW) Urine Appearance (CLEAR) Urine pH (5-6) Ur Specific [place] (1.005-1.025) Urine Protein (Negative) Urine Ketones (NEGATIVE) Urine Blood (0-5) Jaswinder/ul Urine Nitrite (NEGATIVE) Urine Bilirubin (NEGATIVE) Urine Urobilinogen (0-1) mg/dL Ur Leukocyte Esterase (NEGATIVE) Urine Microscopic RBC (0-2) /HPF Urine Microscopic WBC (0-5) /HPF Ur Epithelial Cells (FEW) /HPF Urine Bacteria (NEGATIVE) /HPF Urine Mucus (NEGATIVE) /HPF Urine Culture Reflexed (NO) Urine Glucose (NEGATIVE) mg/dL Specimen Received - Progress Progress: unchanged Progress Note: 10/06/17 13:25 admit d/w Dr Aleman 10/06/17 13:26 Discussed with : Chavez Aleman Will see patient in: hospital (observation) Counseled pt/family regarding: lab results, diagnosis, rad results - Departure Time of Disposition: 13:26 Departure Disposition: Observation Clinical Impression: Vomiting Qualifiers: Vomiting type: cyclical vomiting Vomiting Intractability: intractable Nausea presence: with nausea Qualified Code(s): G43.A1 - Cyclical vomiting, intractable Condition: Stable Critical Care Time: No Referrals: NOE ALEMAN [Primary Care Provider] -
[2017-10-06 11:58] LABS: BASOPHIL % 0.6 % (0.0-0.4); Eosinophil % 2.2 % (0.00-5.0); Granulocytes % 69.8 % (36.0-66.0); Lymphocytes % 19.7 % (24.0-44.0); Mean Cell Volume 75.5 fl (78-100); Mean Platelet Volume 11.2 fl (6-9.5); Monocytes % 7.7 % (0.0-12.0); Platelet Count 336 K/mm3 (150-450); Red Blood Count 5.59 M/mm3 (4.1-5.4); Red Cell Distribution Width 16.2 % (11.5-14.0); White Blood Count 8.1 K/mm3 (4.0-10.5)
[2017-10-06 11:59] LABS: Mean Corpuscular Hemoglobin 23.7 pg (26-32)
[2017-10-06 12:17] LABS: ALBUMIN 3.8 g/dL (3.4-5.0); ALKALINE PHOSPHATASE 128 U/L (46-116); ANION GAP 16.8 MEQ/L (5-15); BLOOD UREA NITROGEN 17 mg/dL (9-20); CHLORIDE 102 mEq/L (98-107); Carbon Dioxide 24.9 mEq/L (21-32); Glucose 106 MG/DL (70-110); LIPASE 100 U/L (73-393); Potassium 3.5 mEq/L (3.5-5.1); SGOT/AST 14 U/L (15-37); SGPT/ALT 21 U/L (12-78); SODIUM 140 mEq/L (136-145); Total Protein 7.5 gm/dL (6.4-8.2)
[2017-10-06 12:29] LABS: ADD URINE CULTURE? NO (NO); Bacteria FEW /HPF (NEGATIVE); Bilirubin NEGATIVE (NEGATIVE); Blood 50 Ery/ul (0-5); COMPLETE URINE MICROSCOPIC? YES; Collection Type CATH; Epithelial Cells FEW /HPF (FEW); Glucose NEGATIVE (NEGATIVE); Leukocyte Esterase NEGATIVE (NEGATIVE); Mucus MANY /HPF (NEGATIVE); WBC 0-2 /HPF (0-5)
--- NOTE | 2017-10-06 13:14 | XRAY ---
Indication: Nausea and vomiting. Multiple contiguous axial images obtained through the abdomen and pelvis without contrast as ordered. Comparison: Jul 09, 2017. Lung bases are clear. Heart is not enlarged. There is recurrent small sliding hiatal hernia as originally seen on July 02, 2017 exam. Noncontrasted stomach and bowel loops appear nonobstructed. Normal appendix. No free fluid/air. Again splenomegaly today measuring 15.5 cm in greatest axial dimension. Remaining liver, gallbladder, pancreas, adrenal glands, kidneys, ureters, bladder, uterus, and aorta appear unremarkable for noncontrast exam. Osseous structures intact. Stable small fatty umbilical hernia. Impression: 1. Small sliding-type hiatal hernia. 2. Stable splenomegaly and small fatty umbilical hernia. 3. No acute intra-abdominal/pelvic abnormalities on this noncontrast exam. CT DI 23.68
[2017-10-06] MEDS ORDERED: Zofran 4 MG/2 ML VIAL IV PRN (13:53)
[2017-10-06] MEDS ORDERED: ULTRAM 50 MG PO PRN (14:12)
[2017-10-06] MEDS: PROTONIX 40 MG IV IV SCH (14:56)
[2017-10-06] MEDS: Ativan 0.5 MG PO PRN (15:07)
[2017-10-06] MEDS: Sodium Chloride 0.9% 1000 ML 1,000 ML IV SCH (15:07)
[2017-10-06] MEDS: ceLEXa 20 MG PO SCH (18:02)
[2017-10-06] MEDS: ASACOL HD PO SCH ×2 (18:02→21:39)
[2017-10-06] MEDS: Zofran 4 MG/2 ML VIAL IV PRN (21:39)
[2017-10-07] MEDS: Sodium Chloride 0.9% 1000 ML 1,000 ML IV SCH ×2 (00:11→01:33)
[2017-10-07 05:35] LABS: BASOPHIL % 0.3 % (0.0-0.4); Eosinophil % 0.8 % (0.00-5.0); Granulocytes % 69.7 % (36.0-66.0); Lymphocytes % 19.8 % (24.0-44.0); Mean Cell Volume 76.2 fl (78-100); Mean Platelet Volume 11.7 fl (6-9.5); Monocytes % 9.4 % (0.0-12.0); Platelet Count 297 K/mm3 (150-450); Red Blood Count 4.66 M/mm3 (4.1-5.4); Red Cell Distribution Width 15.8 % (11.5-14.0); White Blood Count 7.6 K/mm3 (4.0-10.5)
[2017-10-07 05:53] LABS: ANION GAP 13.6 MEQ/L (5-15); BLOOD UREA NITROGEN 14 mg/dL (9-20); CHLORIDE 104 mEq/L (98-107); Carbon Dioxide 24.5 mEq/L (21-32); Glucose 100 MG/DL (70-110); Potassium 3.3 mEq/L (3.5-5.1); SODIUM 139 mEq/L (136-145)
[2017-10-07] MEDS: Zofran 4 MG/2 ML VIAL IV PRN (07:31)
--- NOTE | 2017-10-07 07:44 | HP ---
HISTORY OF PRESENT ILLNESS: Gretta Hester is a 41 year old woman with past medical history of asthma, chronic pain syndrome, colitis, anxiety, depression, anemia and obesity. She was admitted through the emergency room earlier today with symptoms of nausea and vomiting for the last two days. As per patient she has had several episodes of vomiting and was unable to tolerate any food or liquid, anything at all. Also she complained of feeling weak and fatigued. She had a low grade fever. Her vomiting was a little better today. However, she did have persistent nausea. Upon initial evaluation in the emergency room she was noted to have a blood pressure of 145/100, heart rate 103, respiratory rate 20, temperature 98.4F. She was treated with normal saline 1 liter, Zofran 4 mg IV x2. Subsequently she was admitted to the medical floor for further monitoring and management. At the time of this evaluation, she had just been admitted to the medical floor. She complained of nausea, vomiting, complained of mild generalized abdominal discomfort. PAST MEDICAL HISTORY: As noted above. The patient stated that she had never made it to GI appointment due to accompanying her mother for her appointments. PAST SURGICAL HISTORY: section, tubal ligation. ALLERGIES: CECLOR. MEDICATIONS: Home medications were reviewed. FAMILY HISTORY: Noncontributory. SOCIAL HISTORY: The patient lives at home, active smoker, denies illicit drug use. 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 REVIEW OF SYSTEMS: Denies headache or dizziness. Complains of fatigue, complains of generalized weakness. Denies chest pain, shortness of breath or cough. Complains of abdominal pain, nausea and vomiting. Denies constipation or diarrhea. Denies urinary complaints. PHYSICAL EXAMINATION: A middle aged obese woman lying comfortably in bed, not in acute distress. VITAL SIGNS: Blood pressure 158/88, heart rate 70, respiratory rate 20, temperature 97.8F. Oxygen saturation 96% on room air. HEENT: No pallor or icterus is noted. NECK: No JVD is present. CVS: S1, S2 present. RESPIRATORY: Breath sounds are bilaterally diminished and clear to auscultation. ABDOMEN: Obese, soft, mild tenderness is present.. NEURO: She is alert, oriented x3. EXTREMITIES: No edema on bilateral lower extremities. LABORATORY DATA AND TESTS: Labs from today show unremarkable CBC. CMP was unremarkable except alkaline phosphatase 128, lipase 100. Serum protein C test negative. Troponin was less than 0.017 x2. UA showed presence of blood, 2 to 5 red blood cells, few epithelial cells, few bacteria, mucus. CT scan of abdomen and pelvis showed small sliding-type hiatal hernia, small sliding-type umbilical hernia. No acute intra-abdominal/pelvic abnormalities. ASSESSMENT: A 41 year old woman with impression: 1) Intractable nausea/vomiting. 2) Dehydration. 3) Generalized weakness. 4) History of ulcerative colitis. 5) Anxiety/depression. 6) Chronic pain syndrome. 7) Morbid obesity. PLAN: The patient is admitted for further monitoring and management. Will continue on IV fluids, proton pump inhibitor and PRN Zofran was added. Will continue to monitor clinically symptoms plus will obtain surgery evaluation for possible EGD. The patient is requesting anxiolytic medication. She was placed on PRN Ativan. She states she has been under a lot of stress recently due to her mother's health. Also continue her PRN analgesics. The plan was discussed with the patient and her . They seem to be in understanding and agreement.
[2017-10-07] MEDS: ASACOL HD PO SCH ×2 (08:58→13:10)
[2017-10-07] MEDS: ceLEXa 20 MG PO SCH (08:58)
[2017-10-07] MEDS: PROTONIX 40 MG IV IV SCH (09:23)
[2017-10-07] MEDS: POTASSIUM CHLORIDE 20 mEq IN WATER 100ML 20 MEQ/100 ML BAG IV SCH ×2 (10:49→13:10)
[2017-10-07 11:07] VITALS: BP 134/75; PULSE 74; O2SAT 97
[2017-10-07] MEDS: Ativan 0.5 MG PO PRN (11:28)
--- NOTE | 2017-10-08 08:36 | DS ---
DISCHARGE DIAGNOSES: 1) INTRACTABLE NAUSEA AND VOMITING, RESOLVED. 2) DEHYDRTION, CLINICALLY IMPROVED. 3) GENERALIZED WEAKNESS, IMPROVED. 4) HISTORY OF ULCERATIVE COLITIS. 5) ANXIETY/DEPRESSION. 6) CHRONIC PAIN SYNDROME. 7) MORBID OBESITY. HOSPITAL COURSE: Gretta Hester is a 41 year-old woman with past medical history of chronic pain syndrome, anxiety, depression, prior history of ulcerative colitis. She was admitted on 10/06/2017 with intractable nausea, vomiting, fatigue, generalized weakness, low grade fever. Please refer to history and physical for details. Lab work up showed unremarkable CBC. Labs showed mild hypokalemia. Lipase was within normal limits. Troponin was less than 0.017. UA showed presence of 2 to 5 red blood cells, few epithelial cells, few bacteria, trace mucous. CT scan of abdomen and pelvis showed small sliding-type hiatal hernia, no acute intra-abdominal/pelvic abnormalities. She was placed on IV fluids, antiemetic, proton pump inhibitor. Also she was kept NPO. During her further course she improved clinically. Subsequent labs were notable for hypokalemia for which she was treated with supplemental potassium. Eventually her nausea and vomiting resolved. The rest of her course was essentially unremarkable. She improved clinically. At the time of this evaluation she is alert, awake and comfortable. She states she feels well. She has tolerated clear liquids. She is wishing to go home to be able to attend her daughter's [place] program this evening. She is requesting to be discharged. She appears comfortable. PHYSICAL EXAMINATION: VITAL SIGNS: Blood pressure 116/70, heart rate 80, respiratory rate 16, temperature 97.9F. Oxygen saturation 94% on room air. HEENT: Normocephalic. No pallor or icterus is noted. NECK: No JVD is present. CVS: S1, S2 present. RESPIRATORY: Breath sounds are bilaterally diminished and clear to auscultation. ABDOMEN: Obese, soft, nontender. NEURO: She is alert, oriented x3. EXTREMITIES: No edema on bilateral lower extremities. LABORATORY DATA AND TESTS: Labs from today show CBC with white blood cell 7.6, hemoglobin 11.2, hematocrit 35.5, PLT 297,000. BMP notable for potassium 3.3. Medications were reviewed. ASSESSMENT: As outlined in discharge diagnoses. PLAN: The patient was admitted with intractable nausea and vomiting. She underwent work up and treatment. She improved clinically, remained hemodynamically stable. She is able to tolerate clear liquid diet. She is feeling well and is wishing to be discharged. Will ambulate the patient. The patient is being discharged home in stable condition. Please refer to discharge medication list from 10/07/2017 for details of medications on discharge. I have advised the patient to continue to drink ample p.o. fluids and continue light diet for the next couple of days. Also, the patient has missed prior appointment that were made with GI due to her mother's health, will reschedule appointment. The patient was encouraged to follow up with that appointment as scheduled. Compliance with diet and medications was stressed. Complete cessation of smoking was stressed. The patient was advised to follow up with me in the office in one week. I have advised the patient to return to the Emergency Room [facility] if any new signs and symptoms or reappearance of previous signs and symptoms are noted. The patient's clinical condition, work-up results and plan of management were discussed with her. She seems to be in understanding and agreement. Discussed with patient's nurse.
== END 2017-10-07 15:10 | disposition home or self-care (01) ==
LOC: ED 11:06 → MED SURG 13:35
PROVIDERS: ADMIT General Practice; ATTEND General Practice
DX: E86.0 Dehydration (principal); R53.1 Weakness; F41.8 Other specified anxiety disorders; G89.4 Chronic pain syndrome; F45.42 Pain disorder with related psychological factors; E66.01 Morbid (severe) obesity due to excess calories; K44.9 Diaphragmatic hernia without obstruction or gangrene
CPT/HCPCS: 36000; 36415; 74176; 80048; 80053; 81000; 83690; 84484; 84703; 85025; 93005; 93268; 96360; 96374; 96376; 99285; G0378; J2405; J3480; P9612; A9270-GY

== ENCOUNTER 2018-10-28 14:16 | Emergency (ER) | payer OTHER ==
[2018-10-28] MEDS ORDERED: DUONEB 0.5-3 MG/3 ml Neb IH ONE ×2 (14:29→14:51)
--- NOTE | 2018-10-28 14:35 | ERPHSYRPT ---
- History of Present Illness Time Seen by Provider: 10/28/18 14:18 Source: patient, family Exam Limitations: no limitations Physician History: patient not feeling well with non- productive cough ? fever/ chills, aches; runny nose and sore throat; daughter sick this past week with strep throat, ear infection and Inf A&B pos; patient on Tamiflu x 5 days; no N&V or CP; ill too; no travel Timing/Duration: day(s) (2-3), gradual onset, worse Severity: moderate Modifying Factors: Improves With: medication (tamiflu x 5 days), acetaminophen Associated Symptoms: cough, chills, fever, malaise, other (sore throat), No nausea, No vomiting, No abdominal pain, No shortness of breath, No heartburn, No chest pain, No syncope, No seizure Allergies/Adverse Reactions: cefaclor [From Ceclor] Allergy (Intermediate, Verified 10/06/17 11:24) Hives Home Medications: Citalopram Hydrobromide [Citalopram HBr] 40 mg PO DAILY 07/09/17 [History] Mesalamine [Asacol] 800 mg PO QID 07/09/17 [History] Promethazine HCl 25 mg [Phenergan 25 mg] 25 mg PO Q6HPRN PRN 07/09/17 [ History] Tramadol HCl 50 mg [Ultram 50 mg] 50 mg PO DAILY PRN PRN 10/06/17 [History ] Hx Tetanus, Diphtheria Vaccination/Date Given: Yes (up to date) Hx Influenza Vaccination/Date Given: No Hx Pneumococcal Vaccination/Date Given: No - Review of Systems Constitutional: Fever, Chills, Malaise Eyes: No Symptoms Ears, Nose, & Throat: Ear Pain, Nose Discharge, Throat Pain, Painful Swallowing , No Tinnitus, No Epistaxis, No Throat Swelling Respiratory: Cough, Wheezing, No Cyanosis, No Dyspnea, No Dyspnea on Exertion ( HERRERA) Cardiac: No Chest Pain, No Palpitations, No Syncope Abdominal/Gastrointestinal: No Abdominal Pain, No Nausea, No Vomiting, No Diarrhea Genitourinary Symptoms: No Symptoms Musculoskeletal: Myalgias, No Neck Pain, No Fall, No Injury Skin: No Symptoms Neurological: No Symptoms Psychological: No Symptoms Endocrine: No Symptoms Hematologic/Lymphatic: No Symptoms Immunological/Allergic: No Symptoms - Past Medical History Pertinent Past Medical History: Yes Neurological History: No Pertinent History ENT History: No Pertinent History Cardiac History: No Pertinent History Respiratory History: Asthma Endocrine Medical History: No Pertinent History Musculoskeletal History: No Pertinent History GI Medical History: Colitis, Other History: No Pertinent History Psycho-Social History: Anxiety, Depression Female Reproductive Disorders: No Pertinent History Other Medical History: ULCERATIVE COLITIS,ANEMIA - Past Surgical History Past Surgical History: Yes Neuro Surgical History: No Pertinent History Cardiac: No Pertinent History Respiratory: No Pertinent History Gastrointestinal: No Pertinent History Genitourinary: No Pertinent History Musculoskeletal: No Pertinent History Female Surgical History: Section, Tubal Ligation - Social History Smoking Status: Light tobacco smoker How long have you smoked: 10yrs Exposure to second hand smoke: No Alcohol Use: Socially Drug Use: none Patient Lives Alone: No Significant Family History: no pertinent family hx - Female History Hx Now: No - Nursing Vital Signs Nursing Vital Signs: Initial Vital Signs O2 Sat by Pulse Oximetry 100 10/28/18 14:38 Pain Scale Pain Intensity 8 - Physical Exam General Appearance: mild distress, alert, anxiety, obese Eye Exam: PERRL/EOMI, eyes nml inspection, No photophobia Ears, Nose, Throat Exam: normal ENT inspection, TMs normal, pharynx normal, moist mucous membranes Neck Exam: normal inspection, non-tender, supple, full range of motion, No meningismus, No JVD, No lymphadenopathy Respiratory Exam: lungs clear, respiratory distress (mild tachypnea), airway intact, wheezing, No normal breath sounds, No chest tenderness, No prolonged expirations, No crackles/rales, No rhonchi Cardiovascular Exam: regular rate/rhythm, normal heart sounds, normal peripheral pulses, tachycardia (106), capillary refill <2 sec, No murmur, No edema Gastrointestinal/Abdomen Exam: soft, normal bowel sounds, No tenderness, No guarding, No rebound, No organomegaly Pelvic Exam: not done Rectal Exam: deferred Back Exam: normal inspection, normal range of motion, No CVA tenderness Extremity Exam: normal inspection, normal range of motion, No rachel's sign, No pedal edema Neurologic Exam: alert, oriented x 3, cooperative, director information security II-XII nml as tested, nml cerebellar function, nml station & gait Skin Exam: normal color, warm, dry, No rash, No petechiae, No cyanosis SpO2 Interpretation: normal SpO2: 100 Oxygen Delivery: Room Air - Course Nursing assessment & vital signs reviewed: Yes Ordered Tests: Active Orders 24 hr Category Date Time Status Pulse Oximetry (ED) STAT Care 10/28/18 14:29 Active Peak Expiratory Flow Rate ONCE RT 10/28/18 14:29 Active Respiratory Nebulizer STAT RT 10/28/18 14:30 Active Respiratory Therapy Assessment DAILY RT 10/28/18 14:54 Active Medication Summary Discontinued Medications Generic Name Dose Route Start Last Admin Trade Name Freq PRN Reason Stop Dose Admin Albuterol/Ipratropium 3 ml 10/28/18 14:29 10/28/18 14:53 Duoneb 0.5-3 Mg/3 Ml Neb IH 10/28/18 14:30 3 ml STAT ONE Administration Albuterol/Ipratropium Confirm 10/28/18 14:51 Duoneb 0.5-3 Mg/3 Ml Neb Administered 10/28/18 14:52 Dose 3 ml IH .STK-MED ONE Lab/Rad Data: Laboratory Results 10/28/18 Range/Units 14:45 Group A Strep Antibody NEGATIVE (NEGATIVE) reviewed - Progress Progress: improved, re-examined (after Resp tx) Progress Note: 10/28/18 14:37 Patient has been on Tamiflu and exposed to Inf A&B so will check strp, give a duoo neb and recheck; sats 100 % on RA; no fever 10/28/18 15:22 recheck and strp neg; BS and sats and VS good post duo neb; instructions given Counseled pt/family regarding: lab results, diagnosis, need for follow-up - Departure Time of Disposition: 15:24 Departure Disposition: Home Clinical Impression: Ulcerative colitis, Influenza, Asthmatic bronchitis Condition: Stable Critical Care Time: No Referrals: NOE ALEMAN [Primary Care Provider] - Instructions: Viral Pharyngitis (DC), Asthma in Adults Additional Instructions: continue home meds and inhaler; rest; fluids Follow-up with family doctor as directed. Call for appointment. Return if any problems. If you smoke please stop. Call or follow up with your family doctor for assistance if you need it to stop. Please wear your seatbelt when driving. Have a nice day. Thank you for allowing us to participate in your care today. :o) Dr Michael Vega Prescriptions: Methylprednisolone Packet [Medrol Dosepack] 4 mg PO UD #1 packet
[2018-10-28 15:33] VITALS: BP 140/100; PULSE 114; O2SAT 98
== END 2018-10-28 15:40 | disposition home or self-care (01) ==
LOC: ED 14:16
DX: J45.909 Unspecified asthma, uncomplicated (principal); J11.1 Influenza due to unidentified influenza virus with other respiratory manifestations; K51.90 Ulcerative colitis, unspecified, without complications; Z79.899 Other long term (current) drug therapy; F17.200 Nicotine dependence, unspecified, uncomplicated
CPT/HCPCS: 87651; 94150; 94640; 99284; A9270-GY

== ENCOUNTER 2020-04-02 15:25 | Emergency (ER) | payer OTHER ==
--- NOTE | 2020-04-02 16:15 | ERPHSYRPT ---
- History of Present Illness Time Seen by Provider: 04/02/20 15:40 Source: patient Exam Limitations: no limitations Patient Subjective Stated Complaint: pt states about an hour ago she twisted right ankle going down steps. she co pain to right foot and ankle and left knee Triage Nursing Assessment: pt arrived per wc, alert, resp easy, skin w/d/p.she has abrasions to left knee with a bruise knee, has swelling and bruising to right foot Physician History: 44 years old female presented in the ER with chief complaint of right foot and ankle pain after she missed last stepping stone while going down, fell on her knee and twisted right ankle. She was not able to get up and walk, weightbearing is very very painful. Sharp shooting moderate to severe intensity associated with swelling of dorsum of foot and ankle. Has small abrasion on the left knee with minimal pain but no difficulty with ambulation. Did not hit her head, no loss of consciousness. No injury anywhere else. Method of Injury: fell, twisted Occurred: just prior to arrival Quality: constant, sharpness Severity of Pain-Max: moderate Severity of Pain-Current: moderate Lower Extremities Pain: foot: right, ankle: right Modifying Factors: Improves With: immobilization, movement Associated Symptoms: none Allergies/Adverse Reactions: cefaclor [From Ceclor] Allergy (Intermediate, Verified 04/02/20 15:43) Hives Home Medications: Alprazolam 0.5 mg [xanAX 0.5 MG] 0.5 mg DAILY 04/02/20 [History] Hx Tetanus, Diphtheria Vaccination/Date Given: Yes Hx Influenza Vaccination/Date Given: No Hx Pneumococcal Vaccination/Date Given: No Immunizations Up to Date: Yes Travel Risk - International Travel Have you traveled outside of the country in past 3 weeks: No Have you or anyone close to you been diagnosed with or: No Do your reside in a community with a known COVID-19 case?: Yes If Yes where:: [place] - Coronavirus Screening Has patient experienced Coronavirus symptoms: No - Review of Systems Constitutional: No Symptoms Eyes: No Symptoms Ears, Nose, & Throat: No Symptoms Respiratory: No Symptoms Cardiac: No Symptoms Abdominal/Gastrointestinal: No Symptoms Musculoskeletal: Fall, Injury, Joint Pain, Joint Swelling Skin: No Symptoms Neurological: No Symptoms Psychological: No Symptoms Endocrine: No Symptoms Hematologic/Lymphatic: No Symptoms Immunological/Allergic: No Symptoms - Past Medical History Pertinent Past Medical History: Yes Neurological History: No Pertinent History ENT History: No Pertinent History Cardiac History: No Pertinent History Respiratory History: Asthma Endocrine Medical History: No Pertinent History Musculoskeletal History: No Pertinent History GI Medical History: Colitis, Other History: No Pertinent History Psycho-Social History: Anxiety, Depression Female Reproductive Disorders: No Pertinent History Other Medical History: ULCERATIVE COLITIS,ANEMIA - Past Surgical History Past Surgical History: Yes Neuro Surgical History: No Pertinent History Cardiac: No Pertinent History Respiratory: No Pertinent History Gastrointestinal: No Pertinent History Genitourinary: No Pertinent History Musculoskeletal: No Pertinent History Female Surgical History: Section, Tubal Ligation - Social History Smoking Status: Light tobacco smoker How long have you smoked: 10yrs Exposure to second hand smoke: No Alcohol Use: Socially Drug Use: none Patient Lives Alone: No Significant Family History: no pertinent family hx - Female History Hx Last Menstrual Period: 3 weeks ago Hx Now: No - Nursing Vital Signs Nursing Vital Signs: Initial Vital Signs Pulse Rate 97 H 04/02/20 15:26 Respiratory Rate 16 04/02/20 15:26 Blood Pressure 126/93 04/02/20 15:26 O2 Sat by Pulse Oximetry 98 04/02/20 15:26 Pain Scale Pain Intensity 7 - Physical Exam General Appearance: no apparent distress Eyes, Ears, Nose, Throat Exam: normal ENT inspection Neck Exam: normal inspection Cardiovascular/Respiratory Exam: chest non-tender, normal breath sounds, regular rate/rhythm Gastrointestinal/Abdominal Exam: soft Back Exam: normal inspection, normal range of motion Hips Exam: bilateral: non-tender, normal inspection, normal range of motion Legs Exam: bilateral leg: non-tender, normal inspection, normal range of motion Knees Exam: right knee: non-tender, normal inspection, normal range of motion, left knee: pain (Minimal abrasion left knee with minimal tenderness. Intact range of motion.), soft tissue tenderness Ankle Exam: right ankle: bone tenderness, limited range of motion, pain, soft tissue tenderness, swelling, left ankle: non-tender, normal inspection, normal range of motion, no evidence of injury Foot Exam: right foot: bone tenderness (Base of fifth metatarsal), pain, soft tissue tenderness, swelling, left foot: non-tender, normal inspection, normal range of motion, no evidence of injury Neuro/Tendon Exam: normal sensation, normal motor functions Mental Status Exam: alert, oriented x 3, cooperative Skin Exam: normal color, warm, dry SpO2 Interpretation: normal SpO2: 98 O2 Delivery: Room Air - Course Nursing assessment & vital signs reviewed: Yes Ordered Tests: Active Orders 24 hr Category Date Time Status ANKLE (3 VIEWS) Stat Exams 04/02/20 16:46 Taken FOOT (MINIMUM 3 VIEWS) Stat Exams 04/02/20 16:46 Taken Medication Summary Discontinued Medications Generic Name Dose Route Start Last Admin Trade Name Patrick PRN Reason Stop Dose Admin Hydrocodone Bitart/Acetaminophen 1 tab 04/02/20 16:21 04/02/20 16:52 [place] 5/325 Mg PO 04/02/20 16:22 1 tab STAT ONE Administration Hydrocodone Bitart/Acetaminophen Confirm 04/02/20 16:51 [place] 5/325 Mg Administered 04/02/20 16:52 Dose 1 tab .ROUTE .STK-MED ONE - Progress Progress: improved, pain not gone completely, re-examined Progress Note: 04/02/20 she has fracture base of fifth metatarsal. Applied, crutches given along with pain medication and recommended outpatient follow-up with orthopedic/ podiatry for reevaluation and further management Counseled pt/family regarding: diagnosis, need for follow-up, rad results - Departure Departure Disposition: Home Clinical Impression: Fracture of fifth metatarsal bone Qualifiers: Encounter type: initial encounter Fracture type: closed Fracture alignment: nondisplaced Laterality: right Qualified Code(s): S92.354A - Nondisplaced fracture of fifth metatarsal bone, right foot, initial encounter for closed fracture Condition: Stable Critical Care Time: No Referrals: ENRICO MCDOWELL MD [Primary Care Provider] - Follow Up with PCP/3 days ANNA MATHIAS NP [NON-STAFF PHY W/O PRIVILEGES] - (1-2 days for re evaluation ) Instructions: Ankle Sprain (DC), Foot Fracture (DC) Additional Instructions: No weightbearing. Use crutches. Take pain medications as needed. Keep it elevated. Follow-up with Ortho clinic at [facility] are [facility] Ortho clinic in [place] tomorrow morning. Return to ER for any worsening. Take ibuprofen as needed. Prescriptions: Hydrocodone/Acetaminophen [[place] 7.5-325 Tablet] 1 each PO Q4-6HPRN PRN 3 Days # 12 tablet MDD 4 PRN Reason: Pain
[2020-04-02] MEDS ORDERED: NORCO 5/325 MG PO ONE (16:21)
[2020-04-02] MEDS ORDERED: NORCO 5/325 MG ONE (16:51)
[2020-04-02 17:12] VITALS: BP 132/81
[2020-04-02 17:58] VITALS: PULSE 90
[2020-04-02 18:06] VITALS: O2SAT 98
--- NOTE | 2020-04-02 22:34 | XRAY ---
Indication: Lateral pain and bruising following fall. Comparison: None 3 view right ankle demonstrates mild lateral soft tissue swelling, small plantar heel spur, and nondisplaced 5th metatarsal base fracture. No other bony, articular, or soft tissue abnormalities.
--- NOTE | 2020-04-02 22:34 | XRAY ---
Indication: Lateral pain and bruising following fall. Comparison: None 3 nonweightbearing views right foot demonstrates nondisplaced 5th metatarsal base fracture and small plantar heel spur. No other bony, articular, or soft tissue abnormalities.
== END 2020-04-02 17:59 | disposition home or self-care (01) ==
LOC: ED 15:25
DX: S92.354A Nondisplaced fracture of fifth metatarsal bone, right foot, initial encounter for closed fracture (principal); S80.212A Abrasion, left knee, initial encounter; X50.1XXA Overexertion from prolonged static or awkward postures, initial encounter; Y93.89 Activity, other specified; Y92.89 Other specified places as the place of occurrence of the external cause; M79.671 Pain in right foot; M25.562 Pain in left knee; K51.90 Ulcerative colitis, unspecified, without complications; Z72.0 Tobacco use
CPT/HCPCS: 73610; 73630; 99283; L4386; A9270-GY

== ENCOUNTER 2020-09-08 17:48 | Emergency (ER) | payer OTHER ==
[2020-09-08 18:00] VITALS: BP 111/89; PULSE 109; O2SAT 98
--- NOTE | 2020-09-08 18:12 | ERPHSYRPT ---
- History of Present Illness Source: patient Exam Limitations: no limitations Patient Subjective Stated Complaint: lice Triage Nursing Assessment: pt states daughter gets lice this time every year and Dr. Carbajal has to call in script d/t OTC meds not working. states her head had also been itching for few days. Physician History: 44 yo wf w scalp pruritis and daughter w lice who was previously seen in ER. No other complaints at this time. Timing/Duration: yesterday Quality: itchy Severity: mild Location: scalp Possible Causes: other (Lice) Modifying Factors: Improves With: scratching Associated Symptoms: No blisters, No change in skin texture, No difficulty breathing, No edema, No fever, No flushing, No headache, No hives, No jaundice, No malaise, No nasal congestion, No numbness, No pallor, No paresthesia, No petechiae, No rash, No sore throat, No swelling/mass/lumps, No tingling Allergies/Adverse Reactions: cefaclor [From [facility]] Allergy (Intermediate, Verified 09/08/20 17:51) Hives Home Medications: Alprazolam 0.5 mg [xanAX 0.5 MG] 0.5 mg PO TID PRN PRN 04/02/20 [History] Hx Tetanus, Diphtheria Vaccination/Date Given: Yes Hx Influenza Vaccination/Date Given: No Hx Pneumococcal Vaccination/Date Given: No Travel Risk - International Travel Have you traveled outside of the country in past 3 weeks: No - Coronavirus Screening Are you exhibiting any of the following symptoms?: No Close contact with a COVID-19 positive Pt in past 14-21 Days: No - Review of Systems Constitutional: No Symptoms Eyes: No Symptoms Ears, Nose, & Throat: No Symptoms Respiratory: No Symptoms Cardiac: No Symptoms Abdominal/Gastrointestinal: No Symptoms Genitourinary Symptoms: No Symptoms Musculoskeletal: No Symptoms Skin: Pruritis, Other Neurological: No Symptoms Psychological: No Symptoms Endocrine: No Symptoms Hematologic/Lymphatic: No Symptoms Immunological/Allergic: No Symptoms - Past Medical History Pertinent Past Medical History: Yes Neurological History: No Pertinent History ENT History: No Pertinent History Cardiac History: No Pertinent History Respiratory History: Asthma Endocrine Medical History: No Pertinent History Musculoskeletal History: No Pertinent History GI Medical History: Colitis, Other History: No Pertinent History Psycho-Social History: Anxiety, Depression Female Reproductive Disorders: No Pertinent History Other Medical History: ULCERATIVE COLITIS,ANEMIA - Past Surgical History Past Surgical History: Yes Neuro Surgical History: No Pertinent History Cardiac: No Pertinent History Respiratory: No Pertinent History Gastrointestinal: No Pertinent History Genitourinary: No Pertinent History Musculoskeletal: No Pertinent History Female Surgical History: Section, Tubal Ligation - Social History Smoking Status: Light tobacco smoker How long have you smoked: 10yrs Exposure to second hand smoke: No Alcohol Use: Socially Drug Use: none Patient Lives Alone: No Significant Family History: no pertinent family hx - Female History Hx Now: No - Nursing Vital Signs Nursing Vital Signs: Initial Vital Signs Temperature 98.9 F 09/08/20 17:54 Pulse Rate 109 H 09/08/20 17:54 Respiratory Rate 18 09/08/20 17:54 Blood Pressure 111/89 09/08/20 17:54 O2 Sat by Pulse Oximetry 98 09/08/20 17:54 Pain Scale Pain Intensity 0 - Physical Exam General Appearance: no apparent distress Eye Exam: PERRL/EOMI, eyes nml inspection Ears, Nose, Throat Exam: normal ENT inspection, TMs normal, pharynx normal, moist mucous membranes Neck Exam: normal inspection, non-tender, supple, No meningismus, No mass, No Brudzinski, No Kernig's Respiratory Exam: normal breath sounds, lungs clear, airway intact, No respiratory distress Cardiovascular Exam: regular rate/rhythm Gastrointestinal/Abdomen Exam: soft, normal bowel sounds, tenderness Back Exam: normal inspection, normal range of motion Extremity Exam: normal inspection, normal range of motion Neurologic Exam: alert, oriented x 3, cooperative, chemistry account manager II-XII nml as tested, normal mood/affect, sensation nml, No motor deficits, No sensory deficit Skin Exam: normal color, warm, dry, other (Possible lice in hair) Lymphatic Exam: No adenopathy SpO2: 98 O2 Delivery: Room Air - Course Nursing assessment & vital signs reviewed: Yes - Progress Progress: unchanged Progress Note: 09/08/20 18:11 Will treat since daughter has known lice Counseled pt/family regarding: need for follow-up - Departure Departure Disposition: Home Clinical Impression: Lice infested hair Condition: Stable Critical Care Time: No Referrals: ENRICO MCDOWELL MD [Primary Care Provider] - Instructions: Head Lice (DC) Additional Instructions: Follow up with family MD Prescriptions: Spinosad 120 ml TP WEEKLY #120 ml
== END 2020-09-08 18:33 | disposition home or self-care (01) ==
LOC: ED 17:48
DX: B85.0 Pediculosis due to Pediculus humanus capitis (principal)
CPT/HCPCS: 99283

== ENCOUNTER 2021-05-20 09:05 | Emergency (ER) | payer OTHER ==
[2021-05-20 09:16] VITALS: BP 132/88; PULSE 99; O2SAT 100
--- NOTE | 2021-05-20 09:31 | ERPHSYRPT ---
- History of Present Illness Time Seen by Provider: 05/20/21 09:12 Source: patient Exam Limitations: no limitations Patient Subjective Stated Complaint: Pt states that she is leaving for [employer] in about an hour and she has been having a low grade temp and she did have a tick on her left calf that she pulled off a week ago and she now has a reddened swollen area with a sore in the middle of it, pt is unsure if it was exactly where the tick was or not Triage Nursing Assessment: Pt brought self to the ER, vitals wnl, rates leg pain as 3/10, pulses normal, skin n/w/d, no diffuculties with breathing, doesn't appear to be in any distress Physician History: 45 years old female presented in the ER with chief complaint of redness swelling left medial calf for almost 1 week after she pulled out tic from the site. Co mplaining of mild dull aching pain with redness and central scabbing and subjective feeling of fever and chills. Up-to-date with tetanus. Timing/Duration: week(s) (1), gradual onset, worse Quality: burning, itchy Severity: moderate Location: extremities Possible Causes: insect bite Associated Symptoms: change in skin texture, rash, swelling/mass/lumps Allergies/Adverse Reactions: cefaclor [From Ceclor] Allergy (Intermediate, Verified 05/20/21 09:16) Hives Home Medications: Doxepin HCl 10 mg PO TID 05/20/21 [History] clonazePAM [Clonazepam] 0.5 mg PO TID 05/20/21 [History] Hx Tetanus, Diphtheria Vaccination/Date Given: Yes Hx Influenza Vaccination/Date Given: No Hx Pneumococcal Vaccination/Date Given: No Travel Risk - International Travel Have you traveled outside of the country in past 3 weeks: No - Coronavirus Screening Are you exhibiting any of the following symptoms?: No Close contact with a COVID-19 positive Pt in past 14-21 Days: No - Vaccine Status Have you recieved a Covid-19 vaccination: Yes Hatch Tender: Moderna - Vaccination Dates Date of 2cond Vaccination (if applicable): 04/2021 - Review of Systems Constitutional: Fever, Chills Eyes: No Symptoms Ears, Nose, & Throat: No Symptoms Respiratory: No Symptoms Cardiac: No Symptoms Abdominal/Gastrointestinal: No Symptoms Genitourinary Symptoms: No Symptoms Musculoskeletal: No Symptoms Skin: Cellulitis, Skin Lesions Neurological: No Symptoms Psychological: No Symptoms Endocrine: No Symptoms Hematologic/Lymphatic: No Symptoms Immunological/Allergic: No Symptoms - Past Medical History Pertinent Past Medical History: Yes Neurological History: No Pertinent History ENT History: No Pertinent History Cardiac History: No Pertinent History Respiratory History: Asthma Endocrine Medical History: No Pertinent History Musculoskeletal History: No Pertinent History GI Medical History: Colitis, Other History: No Pertinent History Psycho-Social History: Anxiety, Depression Female Reproductive Disorders: No Pertinent History Other Medical History: ULCERATIVE COLITIS,ANEMIA - Past Surgical History Past Surgical History: Yes Neuro Surgical History: No Pertinent History Cardiac: No Pertinent History Respiratory: No Pertinent History Gastrointestinal: No Pertinent History Genitourinary: No Pertinent History Musculoskeletal: No Pertinent History Female Surgical History: Section, Tubal Ligation - Social History Smoking Status: Current every day smoker How long have you smoked: 10yrs Exposure to second hand smoke: Yes Alcohol Use: Socially Drug Use: none Patient Lives Alone: No Significant Family History: no pertinent family hx - Female History Hx Now: No (tubal) - Nursing Vital Signs Nursing Vital Signs: Initial Vital Signs Temperature 98.9 F 05/20/21 09:10 Pulse Rate 99 H 05/20/21 09:10 Blood Pressure 132/88 05/20/21 09:10 O2 Sat by Pulse Oximetry 100 05/20/21 09:10 Pain Scale Pain Intensity 3 - Physical Exam General Appearance: no apparent distress, alert Eye Exam: PERRL/EOMI, eyes nml inspection Ears, Nose, Throat Exam: normal ENT inspection, pharynx normal Neck Exam: normal inspection, full range of motion Respiratory Exam: normal breath sounds, lungs clear Cardiovascular Exam: regular rate/rhythm, normal heart sounds Back Exam: normal inspection, normal range of motion Extremity Exam: normal range of motion, pelvis stable Neurologic Exam: alert, oriented x 3, cooperative Skin Exam: normal color, rash, other (Left calf medial aspect 4 x 3 cm area of erythema with a central scab with no fluctuation. Warm and minimal tenderness to touch.) SpO2 Interpretation: normal SpO2: 100 O2 Delivery: Room Air - Progress Progress: unchanged Progress Note: 05/20/21 she is started on cycling. Recommended outpatient follow-up. Counseled pt/family regarding: diagnosis, need for follow-up - Departure Departure Disposition: Home Clinical Impression: Insect bite Qualifiers: Encounter type: initial encounter Site of insect bite: lower leg Laterality: left Qualified Code(s): S80.862A - Insect bite (nonvenomous), left lower leg, initial encounter Condition: Good Critical Care Time: No Referrals: ENRICO MCDOWELL MD [Primary Care Provider] - Follow Up with PCP/3 days Instructions: MRSA (DC), Insect Bites and Stings (DC) Additional Instructions: Use Tylenol/ibuprofen as needed for aches and pains. Follow-up with primary care physician for reevaluation in 2 to 3 days. Return to ER for increasing swelling redness/persistent fever chills etc. Prescriptions: Doxycycline Hyclate 100 mg [Vibramycin 100 MG] 100 mg PO BID #20 tab
== END 2021-05-20 09:37 | disposition home or self-care (01) ==
LOC: ED 09:05
DX: S80.862A Insect bite (nonvenomous), left lower leg, initial encounter (principal)
CPT/HCPCS: 99283

== ENCOUNTER 2021-11-02 20:43 | Emergency (ER) | payer OTHER ==
[2021-11-02 21:04] VITALS: O2SAT 99
[2021-11-02 21:29] LABS: Absolute Neutrophil Ct (ANC) 5.57 (1.4-6.9); Basophil (Absolute #) 0.02 (0-0.4); Eosinophil % 1.9 % (0.00-5.0); Eosinophil (Absolute #) 0.15 (0-0.5); Hematocrit 41.9 % (35-47); Hemoglobin 13.5 gm/dl (12.0-16.0); Lymphocyte (Absolute #) 1.39 (1.0-4.6); Lymphocytes % 18.1 % (24.0-44.0); Mean Cell Volume 78.6 fl (78-100); Mean Corpuscular Hemoglobin 25.3 pg (26-32); Mean Corpuscular Hgb Concent. 32.2 g/dl (32-36); Mean Platelet Volume 10.4 fl (7.5-11.0); Monocyte (Absolute #) 0.57 (0.0-1.3); Monocytes % 7.4 % (0.0-12.0); Neutrophil % 72.3 % (36.0-66.0); Platelet Count 304 K/mm3 (150-450); Red Blood Count 5.33 M/mm3 (4.1-5.4); Red Cell Distribution Width 16.1 % (11.5-14.0); White Blood Count 7.7 K/mm3 (4.0-10.5)
--- NOTE | 2021-11-02 21:31 | ERPHSYRPT ---
- History of Present Illness Source: patient Exam Limitations: no limitations Patient Subjective Stated Complaint: " I was at the [place]ia bar and I went out, I think I had a seizure or something. I woke up and I had pee'd my pants and someone was holding my head". Triage Nursing Assessment: Pt presents to ER by POV from local [facility] after experience a possible syncopal episode vs seizure. Pt states had a couple drinks tonight at the bar and has been out of her Klonopin today, normally takes 3/day. Pt states donated plasma at 2pm and had some food at the bar but hasn't really ate much more today. Denies history of seizures, does appear a little anxious. Pt skin is pink, warm, and dry. Pt PERRL and 2mm sharon. Pt denies nausea, vomiting, or diarrhea. Pt states her speech started to slur and felt really hot and sick. Then was lowered to the floor by friends and then lost conciousness. States was unresponsive for approx 5 min. Pt doesn't recall anything like this happening before. Pt complains of some mild posterior neck pain. Doesn't recall trauma, no deformity noted. Pt is alert and oriented x3 at this time. Respirations are easy and unlabored. Physician History: 45 yo wf w syncopal episode at bar tonight. Pt gave plasma today and had a couple of drinks before she went to the bar and afterward. She currently has a RODRIGUEZ and cervical pain. Pt is back to baseline and denies focal weakness/chest pain/dyspnea/N/V/D. She was incontinent of urine but denies any h/o seizure DO. Pt does have a h/o anemia due to UC but denies any recent flare up along w melena/hematochezia. Prior Episodes: single episode today Timing/Duration: other (Before arrival) Precipitating Factors: lightheadedness Context: sitting Loss of Consciousness: brief (seconds) Charcter of event(s): collapsed Allergies/Adverse Reactions: cefaclor [From [facility]] Allergy (Intermediate, Verified 11/02/21 21:04) Hives Home Medications: Doxepin HCl 10 mg PO TID 05/20/21 [History] clonazePAM [Clonazepam] 0.5 mg PO TID 05/20/21 [History] Hx Tetanus, Diphtheria Vaccination/Date Given: Yes Hx Influenza Vaccination/Date Given: Yes Hx Pneumococcal Vaccination/Date Given: No Immunizations Up to Date: Yes Travel Risk - International Travel Have you traveled outside of the country in past 3 weeks: No - Coronavirus Screening Are you exhibiting any of the following symptoms?: No - Vaccine Status Have you recieved a Covid-19 vaccination: Yes 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 - Vaccination Dates Date of 2cond Vaccination (if applicable): may 2021 - Past Medical History Pertinent Past Medical History: Yes Neurological History: No Pertinent History ENT History: No Pertinent History Cardiac History: No Pertinent History Respiratory History: Asthma Endocrine Medical History: No Pertinent History Musculoskeletal History: No Pertinent History GI Medical History: Colitis, Other History: No Pertinent History Psycho-Social History: Anxiety, Depression Female Reproductive Disorders: No Pertinent History Other Medical History: ULCERATIVE COLITIS,ANEMIA - Past Surgical History Past Surgical History: Yes Neuro Surgical History: No Pertinent History Cardiac: No Pertinent History Respiratory: No Pertinent History Gastrointestinal: No Pertinent History Genitourinary: No Pertinent History Musculoskeletal: No Pertinent History Female Surgical History: Section, Tubal Ligation - Social History Smoking Status: Current every day smoker How long have you smoked: 10yrs Exposure to second hand smoke: No Alcohol Use: Socially Drug Use: none Patient Lives Alone: No Significant Family History: no pertinent family hx - Female History Hx Last Menstrual Period: 10/22/21 Hx Now: No - Review of Systems Constitutional: No Symptoms Eyes: No Symptoms Ears, Nose, & Throat: No Symptoms Respiratory: No Symptoms Cardiac: No Symptoms Abdominal/Gastrointestinal: No Symptoms Genitourinary Symptoms: No Symptoms Musculoskeletal: No Symptoms, Neck Pain Skin: No Symptoms Neurological: No Symptoms, Headache Psychological: No Symptoms Endocrine: No Symptoms Hematologic/Lymphatic: No Symptoms Immunological/Allergic: No Symptoms Physical Exam - Nursing Vital Signs Nursing Vital Signs: Initial Vital Signs Temperature 97.8 F 11/02/21 20:51 Pulse Rate 109 H 11/02/21 20:51 Respiratory Rate 20 11/02/21 20:51 Blood Pressure 133/86 11/02/21 20:51 O2 Sat by Pulse Oximetry 99 11/02/21 20:51 Pain Scale Pain Intensity 2 Tachy - [place] Coma Scale Best Eye Response (Guillermo): (4) open spontaneously Best Verbal Response (Guillermo): (5) oriented Best Motor Response ([place]): (6) obeys commands Guillermo Total: 15 - Physical Exam General Appearance: no apparent distress Eye Exam: bilateral eye: normal inspection, PERRL, EOMI Ears, Nose, Throat Exam: normal ENT inspection, TMs normal, pharynx normal, moist mucous membranes Neck Exam: normal inspection, non-tender, supple, full range of motion, midline tenderness Respiratory: normal breath sounds, lungs clear, airway intact, No chest tenderness, No respiratory distress Cardiovascular: tachycardia, No murmur Gastrointestinal: soft, normal bowel sounds Back Exam: normal inspection, normal range of motion, No CVA tenderness, No vertebral tenderness Extremity Exam: normal inspection, normal range of motion, pelvis stable Peripheral Pulses: carotid (R): 2+, carotid (L): 2+ Mental Status: alert, oriented x 3, cooperative supervisor powdered sugar Exam: normal hearing, normal speech, PERRL Coordination/Gait: negative Romberg's sign Motor/Sensory: no motor deficit, no sensory deficit, no pronator drift, negative Babinski's sign DTR: bicep (R): 2+, bicep (L): 2+ Skin Exam: normal color, warm, dry, No rash SpO2 Interpretation: normal SpO2: 99 O2 Delivery: Room Air - Course Nursing assessment & vital signs reviewed: Yes EKG Interpreted by Me: RATE (Sinus tach/R 102/Normal Qt-QTc/Low voltage/No acute ST-Twave changes) - CT Exams Head CT Interpretation: Discussed w/radiologist (Remote lacunar infarct L basal ganglia/Sinus ds) Chest CT Interpretation: Discussed w/radiologist (Cervical lordotic starightening) Ordered Tests: Active Orders 24 hr Category Date Time Status EKG-ER Only STAT Care 11/02/21 21:10 Completed CERVICAL SPINE WO CONTRAST [CT] Stat Exams 11/02/21 21:25 Completed HEAD WITHOUT CONTRAST [CT] Stat Exams 11/02/21 21:24 Completed Alcohol [ETHYL ALCOHOL] Stat Lab 11/02/21 21:20 Completed CBC W DIFF Stat Lab 11/02/21 21:20 Completed CMP Stat Lab 11/02/21 21:20 Completed HCG QUALITATIVE,SERUM Stat Lab 11/02/21 21:20 Completed UA W/RFX UR CULTURE Stat Lab 11/02/21 21:22 Completed Urine Triage Profile Stat Lab 11/02/21 21:22 Completed Lab/Rad Data: Laboratory Result Diagrams 11/02/21 21:20 12/31/21 21:20 Laboratory Results 11/02/21 11/02/21 11/02/21 Range/Units 21:22 21:22 21:20 WBC (4.0-10.5) K/mm3 RBC (4.1-5.4) M/mm3 Hgb (12.0-16.0) gm/dl Hct (35-47) % MCV (78-100) fl MCH (26-32) pg MCHC (32-36) g/dl RDW (11.5-14.0) % Plt Count (150-450) K/mm3 MPV (7.5-11.0) fl Gran % (36.0-66.0) % Eos # (Auto) (0-0.5) Absolute Lymphs (auto) (1.0-4.6) Absolute Monos (auto) (0.0-1.3) Lymphocytes % (24.0-44.0) % Monocytes % (0.0-12.0) % Eosinophils % (0.00-5.0) % Basophils % (0.0-0.4) % Absolute Granulocytes (1.4-6.9) Basophils # (0-0.4) Sodium (137-145) mmol/L Potassium (3.5-5.1) mmol/L Chloride (98-107) mmol/L Carbon Dioxide (22-30) mmol/L Anion Gap (5-15) MEQ/L BUN (7-17) mg/dL Creatinine (0.52-1.04) mg/dL Estimated GFR ML/MIN Glucose (74-106) mg/dL Calcium (8.4-10.2) mg/dL Total Bilirubin (0.2-1.3) mg/dL AST (14-36) U/L ALT (0-35) U/L Alkaline Phosphatase (38-126) U/L Serum Total Protein (6.3-8.2) g/dL Albumin (3.5-5.0) g/dL Serum , Qual (Negative) Urine Color YELLOW (YELLOW) Urine Appearance SLIGHTLY CLOUDY (CLEAR) Urine pH 5.0 (5-6) Ur Specific Secor 1.011 (1.005-1.025) Urine Protein NEGATIVE (Negative) Urine Ketones NEGATIVE (NEGATIVE) Urine Blood SMALL (0-5) Jaswinder/ul Urine Nitrite NEGATIVE (NEGATIVE) Urine Bilirubin NEGATIVE (NEGATIVE) Urine Urobilinogen NEGATIVE (0-1) mg/dL Ur Leukocyte Esterase NEGATIVE (NEGATIVE) Urine WBC (Auto) NONE (0-5) /HPF Urine RBC (Auto) NONE (0-2) /HPF U Epithel Cells (Auto) RARE (FEW) /HPF Urine Bacteria (Auto) RARE (NEGATIVE) /HPF Urine Mucus (Auto) SLIGHT (NEGATIVE) /HPF Urine Culture Reflexed NO (NO) Urine Glucose NEGATIVE (NEGATIVE) mg/dL Urine Opiates Level NEGATIVE (NEGATIVE) Ur Methadone NEGATIVE (NEGATIVE) Urine Barbiturates NEGATIVE (NEGATIVE) Ur Phencyclidine (PCP) NEGATIVE (NEGATIVE) Urine Amphetamine NEGATIVE (NEGATIVE) U Benzodiazepine Level POSITIVE (NEGATIVE) Urine Cocaine NEGATIVE (NEGATIVE) Urine Marijuana (THC) NEGATIVE (NEGATIVE) Ethyl Alcohol 41 H (0-10) mg/dL 11/02/21 11/02/21 11/02/21 Range/Units 21:20 21:20 21:20 WBC 7.7 (4.0-10.5) K/mm3 RBC 5.33 (4.1-5.4) M/mm3 Hgb 13.5 (12.0-16.0) gm/dl Hct 41.9 (35-47) % MCV 78.6 (78-100) fl MCH 25.3 L (26-32) pg MCHC 32.2 (32-36) g/dl RDW 16.1 H (11.5-14.0) % Plt Count 304 (150-450) K/mm3 MPV 10.4 (7.5-11.0) fl Gran % 72.3 H (36.0-66.0) % Eos # (Auto) 0.15 (0-0.5) Absolute Lymphs (auto) 1.39 (1.0-4.6) Absolute Monos (auto) 0.57 (0.0-1.3) Lymphocytes % 18.1 L (24.0-44.0) % Monocytes % 7.4 (0.0-12.0) % Eosinophils % 1.9 (0.00-5.0) % Basophils % 0.3 (0.0-0.4) % Absolute Granulocytes 5.57 (1.4-6.9) Basophils # 0.02 (0-0.4) Sodium 135 L (137-145) mmol/L Potassium 3.7 (3.5-5.1) mmol/L Chloride 103 (98-107) mmol/L Carbon Dioxide 24 (22-30) mmol/L Anion Gap 11.6 (5-15) MEQ/L BUN 11 (7-17) mg/dL Creatinine 0.72 (0.52-1.04) mg/dL Estimated GFR > 60.0 ML/MIN Glucose 95 (74-106) mg/dL Calcium 8.2 L (8.4-10.2) mg/dL Total Bilirubin 0.20 (0.2-1.3) mg/dL AST 24 (14-36) U/L ALT 26 (0-35) U/L Alkaline Phosphatase 103 (38-126) U/L Serum Total Protein 5.6 L (6.3-8.2) g/dL Albumin 3.3 L (3.5-5.0) g/dL Serum , Qual NEGATIVE (Negative) Urine Color (YELLOW) Urine Appearance (CLEAR) Urine pH (5-6) Ur Specific Secor (1.005-1.025) Urine Protein (Negative) Urine Ketones (NEGATIVE) Urine Blood (0-5) Jaswinder/ul Urine Nitrite (NEGATIVE) Urine Bilirubin (NEGATIVE) Urine Urobilinogen (0-1) mg/dL Ur Leukocyte Esterase (NEGATIVE) Urine WBC (Auto) (0-5) /HPF Urine RBC (Auto) (0-2) /HPF U Epithel Cells (Auto) (FEW) /HPF Urine Bacteria (Auto) (NEGATIVE) /HPF Urine Mucus (Auto) (NEGATIVE) /HPF Urine Culture Reflexed (NO) Urine Glucose (NEGATIVE) mg/dL Urine Opiates Level (NEGATIVE) Ur Methadone (NEGATIVE) Urine Barbiturates (NEGATIVE) Ur Phencyclidine (PCP) (NEGATIVE) Urine Amphetamine (NEGATIVE) U Benzodiazepine Level (NEGATIVE) Urine Cocaine (NEGATIVE) Urine Marijuana (THC) (NEGATIVE) Ethyl Alcohol (0-10) mg/dL - Progress Progress: improved Progress Note: 11/02/21 23:01 Pt wo chest pain/dyspnea/focal weakness/seizure/syncope during stay. 11/02/21 23:02 Pt advised of remote L basal ganglia lacunar infarct Counseled pt/family regarding: lab results, diagnosis, need for follow-up, rad results - Departure Departure Disposition: Home Clinical Impression: Syncope Condition: Stable Critical Care Time: No Referrals: ENRICO MCDOWELL MD [Primary Care Provider] - Follow up/PCP as directed Instructions: Syncope (Fainting) (DC) Additional Instructions: Follow up with your family MD on Friday No driving until cleared by family MD Return to ER as needed Avoid alcohol for several days
[2021-11-02 21:35] LABS: Appearance SLIGHTLY CLOUDY (CLEAR); Bacteria RARE /HPF (NEGATIVE); Bilirubin NEGATIVE (NEGATIVE); Blood SMALL Ery/ul (0-5); Epithelial Cells RARE /HPF (FEW); Glucose NEGATIVE (NEGATIVE); Ketones NEGATIVE (NEGATIVE); Leukocyte Esterase NEGATIVE (NEGATIVE); Mucus SLIGHT /HPF (NEGATIVE); Nitrite NEGATIVE (NEGATIVE); Protein,Urine Dip NEGATIVE (Negative); Specific Gravity 1.011 (1.005-1.025); Urobilinogen NEGATIVE mg/dL (0-1)
[2021-11-02 21:40] LABS: ALBUMIN 3.3 g/dL (3.5-5.0); ALKALINE PHOSPHATASE 103 U/L (38-126); ANION GAP 11.6 MEQ/L (5-15); BLOOD UREA NITROGEN 11 mg/dL (7-17); CHLORIDE 103 mmol/L (98-107); Calcium 8.2 mg/dL (8.4-10.2); Carbon Dioxide 24 mmol/L (22-30); Creatinine 1 0.72 mg/dL (0.52-1.04); EST GLOMERULAR FILTRATION RATE > 60.0 ML/MIN; Glucose 95 mg/dL (74-106); Potassium 3.7 mmol/L (3.5-5.1); SGOT/AST 24 U/L (14-36); SGPT/ALT 26 U/L (0-35); SODIUM 135 mmol/L (137-145); Total Protein 5.6 g/dL (6.3-8.2)
[2021-11-02 21:52] LABS: Amphetamine,Urine NEGATIVE (NEGATIVE); Barbiturate,Urine NEGATIVE (NEGATIVE); Benzodiazepine,Urine POSITIVE (NEGATIVE); Cocaine,Urine NEGATIVE (NEGATIVE); Methadone,Urine NEGATIVE (NEGATIVE); Opiate,Urine NEGATIVE (NEGATIVE); PCP,Urine NEGATIVE (NEGATIVE); THC,Urine NEGATIVE (NEGATIVE)
--- NOTE | 2021-11-02 22:25 | XRAY ---
Indication: Pain following fall. Multiple contiguous axial images obtained through the cervical spine. Sagittal and coronal reformatted images obtained. Comparison: None Axial images negative for acute fracture, suspicious bony lesions, or spinal canal stenosis. Minimal broad-based C5-C6 disc bulge. Sagittal and coronal reformatted images demonstrates lordotic straightening, positional versus paraspinal spasm. Minimal C5-C7 disc space narrowing. No acute compression fracture, subluxation, or jumped facet. Normal appearing craniocervical junction. Visualized noncontrasted soft tissues including lung apices are unremarkable. Impression: 1. Cervical lordotic straightening, positional versus paraspinal spasm. 2. Negative acute fracture/subluxation. 3. Minimal C5-C7 degenerative changes.
--- NOTE | 2021-11-02 22:28 | XRAY ---
Indication: Syncope. Fall. Multiple contiguous axial images obtained through the head without contrast. Comparison: None Ventriculosulcal pattern appears symmetric. Remote lacunar infarct left basal ganglia. No acute intracranial hemorrhage, abnormal extra-axial fluid collection, or mass effect. Fourth ventricle is midline without hydrocephalus. Melgoza-white matter differentiation preserved. Bony calvarium intact. Bilateral mucosal thickening both ethmoid and both maxillary sinuses with fluid leveling. Mastoid air cells are clear. Impression: Remote lacunar infarct left basal ganglia. No acute intracranial abnormalities. Incidental paranasal sinus disease.
[2021-11-02 23:03] VITALS: BP 115/81; PULSE 106
== END 2021-11-02 23:20 | disposition home or self-care (01) ==
LOC: ED 20:43
DX: R55 Syncope and collapse (principal); R51.9 Headache, unspecified; M54.2 Cervicalgia; Z72.0 Tobacco use
CPT/HCPCS: 36415; 70450; 72125; 80053; 80307; 81001; 81025; 85025; 93005; 99284; G0480

== ENCOUNTER 2024-06-22 15:27 | Emergency (ER) | payer OTHER ==
[2024-06-22 15:47] VITALS: BP 153/121; PULSE 109; RESP 20; TEMP 97.2; O2SAT 98
--- NOTE | 2024-06-22 15:53 | ERPHSYRPT ---
- History of Present Illness Time Seen by Provider: 06/22/24 15:40 Source: patient Exam Limitations: no limitations Patient Subjective Stated Complaint: Heavy menstural bleeding Triage Nursing Assessment: Patient ambulated back to ED and transferred self to bed. Patient A+O X3. Patient's skin pale, warm and dry. Patietn complains of menstrual bleeding for 4 weeks. Patient states the past 3 days she has had very heaving bleeding with large clots. Patient states she has been using a super plus tampon, a pad and paper towel in her underpants for the past 3 days. Patient complains of abdominal cramping /10. Physician History: 48-year-old female presents to our ED for vaginal bleeding. Patient states she has been menstruating heavily for 4 weeks. She has not followed up with her primary provider. Bleeding worsened over the past 3 days. Patient has a history of ulcerative colitis and states that she has had rectal bleeding in the past requiring her to receive a blood transfusion. Patient concerned that she may need a blood transfusion today. Patient states that she has also been experiencing intermittent pelvic cramping. Patient states that she is not due to tubal ligation. Patient is not concerned with STI. Patient states she is in a monogamous relationship and states that she does not consent to a STI test. No other complaints. No nausea vomiting or diaphoresis. No rectal bleeding. No abdominal pain per se. Patient otherwise feels well and voices no other complaints or concerns at this time. Portions of this note were created with voice recognition technology. There may be grammatical, spelling, punctuation or sound alike errors Timing/Duration: week(s) Severity: moderate (4 weeks) Modifying Factors: Improves With: nothing Associated Symptoms: other (Intermittent pelvic cramping) Allergies/Adverse Reactions: cefaclor [From Ceclor] Allergy (Intermediate, Verified 06/22/24 15:35) Hives Home Medications: Doxepin HCl 35 mg PO HS 05/20/21 [History] clonazePAM [Clonazepam] 0.5 mg PO TID 05/20/21 [History] Hx Tetanus, Diphtheria Vaccination/Date Given: Yes Hx Influenza Vaccination/Date Given: No Hx Pneumococcal Vaccination/Date Given: No Immunizations Up to Date: Yes Travel Risk - International Travel Have you traveled outside of the country in past 3 weeks: No - Emerging Infectious Disease Are you exhibiting symptoms associated with any current EIDs: No - Review of Systems Constitutional: No Symptoms, No Fever, No Chills Eyes: No Symptoms Ears, Nose, & Throat: No Symptoms Respiratory: No Symptoms, No Cough, No Dyspnea Cardiac: No Symptoms, No Chest Pain, No Edema, No Syncope Abdominal/Gastrointestinal: No Symptoms, No Abdominal Pain, No Nausea, No Vomiting, No Diarrhea Genitourinary Symptoms: No Symptoms, No Dysuria Musculoskeletal: No Symptoms, No Back Pain, No Neck Pain Skin: No Symptoms, No Rash Neurological: No Symptoms, No Dizziness, No Focal Weakness, No Sensory Changes Psychological: No Symptoms Endocrine: No Symptoms Hematologic/Lymphatic: No Symptoms Immunological/Allergic: No Symptoms All Other Systems: Reviewed and Negative - Past Medical History Pertinent Past Medical History: Yes Neurological History: No Pertinent History ENT History: No Pertinent History Cardiac History: No Pertinent History Respiratory History: Asthma Endocrine Medical History: No Pertinent History Musculoskeletal History: No Pertinent History GI Medical History: Colitis, Other History: No Pertinent History Psycho-Social History: Anxiety, Depression Female Reproductive Disorders: No Pertinent History Other Medical History: ULCERATIVE COLITIS,ANEMIA - Past Surgical History Past Surgical History: Yes Neuro Surgical History: No Pertinent History Cardiac: No Pertinent History Respiratory: No Pertinent History Gastrointestinal: No Pertinent History Genitourinary: No Pertinent History Musculoskeletal: No Pertinent History Female Surgical History: Section, Tubal Ligation Significant Family History: no pertinent family hx - Female History Hx Last Menstrual Period: currently Hx Now: No - Social History Smoking Status: Former smoker How long have you smoked: 10yrs Exposure to second hand smoke: No Alcohol Use: Socially Drug Use: none Patient Lives Alone: No - Social Determinants of Health Will the patient participate in the screening: Yes Do you worry about a steady place to live?: No Do you have any problems with any of the following?: No known problems In the past 12 months,have you had to go without utilities?: No Transportation Issues: No Has anyone in your support network made you feel unsafe?: No Have you or anyone in your house had to go without enough: No - Nursing Vital Signs Nursing Vital Signs: Initial Vital Signs Temperature 97.2 F 06/22/24 15:38 Pulse Rate 109 H 06/22/24 15:38 Respiratory Rate 20 06/22/24 15:38 Blood Pressure 153/121 06/22/24 15:38 O2 Sat by Pulse Oximetry 98 06/22/24 15:38 Pain Scale Pain Intensity 5 - Physical Exam General Appearance: no apparent distress, alert Eye Exam: PERRL/EOMI, eyes nml inspection Ears, Nose, Throat Exam: normal ENT inspection, moist mucous membranes Neck Exam: normal inspection, non-tender, supple, full range of motion Respiratory Exam: normal breath sounds, lungs clear, airway intact, No respiratory distress Cardiovascular Exam: regular rate/rhythm, normal heart sounds, normal peripheral pulses Gastrointestinal/Abdomen Exam: soft, normal bowel sounds, No tenderness, No mass Back Exam: normal inspection, normal range of motion, No CVA tenderness, No vertebral tenderness Extremity Exam: normal inspection, normal range of motion, pelvis stable Neurologic Exam: alert, oriented x 3, cooperative, normal mood/affect, nml cerebellar function, nml station & gait, sensation nml, No motor deficits Skin Exam: normal color, warm, dry, No rash Lymphatic Exam: No adenopathy SpO2 Interpretation: normal SpO2: 98 O2 Delivery: Room Air - Course Nursing assessment & vital signs reviewed: Yes Ordered Tests: Active Orders 24 hr Category Date Time Status IV Insertion STAT Care 06/22/24 15:47 Active CBC W DIFF Stat Lab 06/22/24 15:57 Completed CMP Stat Lab 06/22/24 15:57 Completed HCG QUALITATIVE, URINE Stat Lab 06/22/24 Completed UA W/RFX UR CULTURE Stat Lab 06/22/24 15:49 Completed Medication Summary Discontinued Medications Generic Name Dose Route Start Last Admin Trade Name Patrick PRN Reason Stop Dose Admin Sodium Chloride 1,000 mls @ 999 mls/hr 06/22/24 15:47 06/22/24 16:02 Sodium Chloride 0.9% 1000 Ml IV 06/22/24 16:47 999 mls/hr .Q1H1M STA Administration Sodium Chloride Confirm 06/22/24 16:00 Sodium Chloride 0.9% 1000 Ml Administered 06/22/24 16:01 Dose 1,000 mls @ ud .ROUTE .[facility]-MED ONE Ketorolac Tromethamine 30 mg 06/22/24 15:54 06/22/24 16:03 Ketorolac Tromethamine 30 Mg/Ml Inj IM 06/22/24 15:55 30 mg STAT ONE Administration Ketorolac Tromethamine Confirm 06/22/24 16:00 Ketorolac Tromethamine 30 Mg/Ml Inj Administered 06/22/24 16:01 Dose 30 mg .ROUTE .[facility]-MED ONE Lab/Rad Data: Laboratory Result Diagrams 06/22/24 15:57 06/22/24 15:57 Laboratory Results 06/22/24 06/22/24 06/22/24 Range/Units Unknown 15:57 15:57 WBC (3.98-10.04) x10^3/uL RBC (3.93-5.22) x10^6/uL Hgb (11.2-15.7) g/dL Hct (34.1-44.9) % MCV (79.4-94.8) fL MCH (25.6-32.2) pg MCHC (32.2-35.5) g/dL RDW (11.7-14.4) % Plt Count (182-369) x10^3/uL MPV (9.4-12.3) fL Gran % (34.0-71.1) % Immature Gran % (Auto) (0.001-0.429) % Nucleat RBC Rel Count (0.00-0.2) % Eos # (Auto) (0.04-0.36) x10^3/uL Immature Gran # (Auto) (0.001-0.031) x10^3u/L Absolute Lymphs (auto) (1.18-3.74) x10^3/uL Absolute Monos (auto) (0.24-0.86) x10^3/uL Absolute Nucleated RBC (0.00-0.012) x10^3u/L Lymphocytes % (19.3-51.7) % Monocytes % (4.7-12.5) % Eosinophils % (0.7-5.8) % Basophils % (0.1-1.2) % Absolute Granulocytes (1.56-6.13) x10^3/uL Basophils # (0.01-0.08) x10^3/uL Sodium 137 (135-145) mmol/L Potassium 4.7 (3.5-5.1) mmol/L Chloride 106 (98-107) mmol/L Carbon Dioxide 22 (22-30) mmol/L Anion Gap 14.0 (5-15) MEQ/L BUN 13 (7-17) mg/dL Creatinine 0.73 (0.52-1.04) mg/dL Estimated GFR 102.7 ML/MIN Glucose 110 H (74-106) mg/dL Calcium 8.8 (8.4-10.2) mg/dL Total Bilirubin 0.60 (0.2-1.3) mg/dL AST 52 H (14-36) U/L ALT 76 H (0-35) U/L Alkaline Phosphatase 113 (38-126) U/L Serum Total Protein 6.9 (6.3-8.2) g/dL Albumin 4.0 (3.5-5.0) g/dL Urine Color (Yellow) Urine Appearance (Clear) Urine pH (4.6-8.0) Ur Specific [place] (1.005-1.030) Urine Protein (Negative) Urine Glucose (UA) (Negative) mg/dL Urine Ketones (Negative) Urine Blood (Negative) Urine Nitrite (Negative) Urine Bilirubin (Negative) Urine Urobilinogen (0.2) mg/dL Ur Leukocyte Esterase (Negative) U Hyaline Cast (Auto) (0-2) /LPF Urine Microscopic RBC (0-5) /HPF Urine Microscopic WBC (0-5) /HPF Ur Epithelial Cells (None Seen) /HPF Urine Bacteria (None Seen) /HPF Urine Culture Reflexed (NO) Urine HCG, Qual NEGATIVE (NEGATIVE) ABO Group A Rh Factor POSITIVE Antibody Screen NEGATIVE (NEGATIVE) 06/22/24 06/22/24 Range/Units 15:57 15:49 WBC 5.4 (3.98-10.04) x10^3/uL RBC 4.96 (3.93-5.22) x10^6/uL Hgb 12.8 (11.2-15.7) g/dL Hct 41.3 (34.1-44.9) % MCV 83.3 (79.4-94.8) fL MCH 25.8 (25.6-32.2) pg MCHC 31.0 L (32.2-35.5) g/dL RDW 16.5 H (11.7-14.4) % Plt Count 316 (182-369) x10^3/uL MPV 10.3 (9.4-12.3) fL Gran % 60.3 (34.0-71.1) % Immature Gran % (Auto) 0.2 (0.001-0.429) % Nucleat RBC Rel Count 0.0 (0.00-0.2) % Eos # (Auto) 0.27 (0.04-0.36) x10^3/uL Immature Gran # (Auto) 0.01 (0.001-0.031) x10^3u/L Absolute Lymphs (auto) 1.35 (1.18-3.74) x10^3/uL Absolute Monos (auto) 0.43 (0.24-0.86) x10^3/uL Absolute Nucleated RBC 0.00 (0.00-0.012) x10^3u/L Lymphocytes % 25.0 (19.3-51.7) % Monocytes % 8.0 (4.7-12.5) % Eosinophils % 5.0 (0.7-5.8) % Basophils % 1.5 H (0.1-1.2) % Absolute Granulocytes 3.25 (1.56-6.13) x10^3/uL Basophils # 0.08 (0.01-0.08) x10^3/uL Sodium (135-145) mmol/L Potassium (3.5-5.1) mmol/L Chloride (98-107) mmol/L Carbon Dioxide (22-30) mmol/L Anion Gap (5-15) MEQ/L BUN (7-17) mg/dL Creatinine (0.52-1.04) mg/dL Estimated GFR ML/MIN Glucose (74-106) mg/dL Calcium (8.4-10.2) mg/dL Total Bilirubin (0.2-1.3) mg/dL AST (14-36) U/L ALT (0-35) U/L Alkaline Phosphatase (38-126) U/L Serum Total Protein (6.3-8.2) g/dL Albumin (3.5-5.0) g/dL Urine Color Yellow (Yellow) Urine Appearance Clear (Clear) Urine pH 5.5 (4.6-8.0) Ur Specific [place] 1.010 (1.005-1.030) Urine Protein Negative (Negative) Urine Glucose (UA) Negative (Negative) mg/dL Urine Ketones Negative (Negative) Urine Blood Moderate A (Negative) Urine Nitrite Negative (Negative) Urine Bilirubin Negative (Negative) Urine Urobilinogen 0.2 (0.2) mg/dL Ur Leukocyte Esterase Negative (Negative) U Hyaline Cast (Auto) NONE SEEN (0-2) /LPF Urine Microscopic RBC 3-5 (0-5) /HPF Urine Microscopic WBC NONE SEEN (0-5) /HPF Ur Epithelial Cells Few (None Seen) /HPF Urine Bacteria Rare A (None Seen) /HPF Urine Culture Reflexed NO (NO) Urine HCG, Qual (NEGATIVE) ABO Group Rh Factor Antibody Screen (NEGATIVE) - Progress Progress: improved Progress Note: 48-year-old female presents to our ED for evaluation of vaginal bleeding for 4 weeks. Physical exam somewhat limited. Patient declined pelvic exam. She declined STI workup. Patient was here strictly for lab work to check her hemoglobin level. Hemoglobin is within normal range. We scheduled an appointment for her to follow-up with Dr. Rice per her request. She has an appointment to follow-up with him tomorrow morning at 9 AM. Patient now requesting discharge. She states she feels well. She does not want stay in the ED any longer. She will follow-up tomorrow with Dr. Meng as scheduled. She voices no other complaints or concerns at this time. Portions of this note were created with voice recognition technology. There may be grammatical, spelling, punctuation or sound alike errors 06/22/24 17:08 Complexity problem addressed is moderate acute complicated. No critical care time. Complexity data reviewed and analyzed is moderate. Test ordered chest reviewed results analyzed and correlated clinical history and physical exam. Risk of complication or risk of morbidity/mortality patient management is low. Vital stable. Time spent to discharge patient approximately 15 minutes. Plan of care established for shared decision making. No social determinants of health present impede follow-up. Portions of this note were created with voice recognition technology. There may be grammatical, spelling, punctuation or sound alike errors 06/22/24 17:08 Counseled pt/family regarding: lab results, diagnosis, need for follow-up - Departure Departure Disposition: Home Clinical Impression: Vaginal bleeding Condition: Stable Critical Care Time: No Referrals: ENRICO MCDOWELL MD [Primary Care Provider] - Follow up/PCP as directed Additional Instructions: Discharge/Care Plan SHELBI BONILLAN was seen on 06/22/24 in the Emergency Room. The patient was counseled regarding Diagnosis,Lab results, Imaging studies, need for follow up and when to return to the Emergency Room. Prescriptions given: Discharge Note I have spoken with the patient and/or caregivers. I have explained the patient's condition, diagnosis and treatment plan based on the information available to me at this time. I have answered the patient's and/or caregiver's questions and addressed any concerns. The patient and/or caregivers have as good understanding of the patient's diagnosis, condition and treatment plan as can be expected at this point. The vital signs have been stable. The patient's condition is stable and appropriate for discharge from the emergency department. The patient will pursue further outpatient evaluation with the primary care physician or other designated or consulting physician as outlined in the discharge instructions. The patient and/or caregivers are agreeable to this plan of care and follow-up instructions have been explained in detail. The patient and/or caregivers have received these instruction. The patient/and or caregivers are aware that any significant change in condition or worsening of symptoms should prompt an immediate return to this or the closest emergency department or call 911.
[2024-06-22] MEDS ORDERED: TORAdol 30 mg Injection ONE (16:00)
[2024-06-22] MEDS ORDERED: Sodium Chloride 0.9% 1000 ML 1,000 ML ONE (16:00)
[2024-06-22] MEDS: Sodium Chloride 0.9% 1000 ML 1,000 ML IV STA (16:02)
[2024-06-22] MEDS: TORAdol 30 mg Injection IM ONE (16:03)
[2024-06-22 16:12] LABS: Absolute Neutrophil Ct (ANC) 3.25 x10^3/uL (1.56-6.13); BASOPHIL % 1.5 % (0.1-1.2); Basophil (Absolute #) 0.08 x10^3/uL (0.01-0.08); Eosinophil (Absolute #) 0.27 x10^3/uL (0.04-0.36); Hematocrit 41.3 % (34.1-44.9); Hemoglobin 12.8 g/dL (11.2-15.7); IMMATURE GRAN # 0.01 x10^3u/L (0.001-0.031); IMMATURE GRAN % 0.2 % (0.001-0.429); Lymphocyte (Absolute #) 1.35 x10^3/uL (1.18-3.74); Mean Cell Volume 83.3 fL (79.4-94.8); Mean Corpuscular Hemoglobin 25.8 pg (25.6-32.2); Mean Platelet Volume 10.3 fL (9.4-12.3); Monocyte (Absolute #) 0.43 x10^3/uL (0.24-0.86); Neutrophil % 60.3 % (34.0-71.1); Platelet Count 316 x10^3/uL (182-369); Red Blood Count 4.96 x10^6/uL (3.93-5.22); Red Cell Distribution Width 16.5 % (11.7-14.4); White Blood Count 5.4 x10^3/uL (3.98-10.04)
[2024-06-22 16:21] LABS: HCG URINE TEST NEGATIVE (NEGATIVE)
[2024-06-22 16:27] LABS: BILIRUBIN,TOTAL 0.6 mg/dL (0.2-1.3); Calcium 8.8 mg/dL (8.4-10.2); Creatinine 1 0.73 mg/dL (0.52-1.04); EST GLOMERULAR FILTRATION RATE 102.7 ML/MIN; Potassium 4.7 mmol/L (3.5-5.1); Total Protein 6.9 g/dL (6.3-8.2)
[2024-06-22 16:33] LABS: ADD URINE CULTURE? NO (NO); Appearance Clear (Clear); Bacteria Rare /HPF (None Seen); Bilirubin Negative (Negative); Blood Moderate (Negative); Epithelial Cells Few /HPF (None Seen); Glucose, Urine Negative (Negative); Hyaline Casts NONE SEEN /LPF (0-2); Ketones Negative (Negative); Leukocyte Esterase Negative (Negative); Nitrite Negative (Negative); Ph 5.5 (4.6-8.0); Protein,Urine Dip Negative (Negative); Urobilinogen 0.2 mg/dL (0.2); WBC NONE SEEN /HPF (0-5)
[2024-06-22 17:00] LABS: ABO TYPING A; Antibody Screen NEGATIVE (NEGATIVE); RH TYPING POSITIVE
[2024-06-22 17:19] LABS: INR 0.94 (0.8-3.0); PROTIME 10.3 SECONDS (9.4-12.5); PTT 20.7 SECONDS (25.1-36.5)
== END 2024-06-22 17:27 ==
LOC: ED 15:27
DX: N93.9 Abnormal uterine and vaginal bleeding, unspecified (principal); R10.2 Pelvic and perineal pain; Z79.899 Other long term (current) drug therapy
CPT/HCPCS: 36000; 36415; 80053; 81001; 81025; 85025; 85610; 85730; 86850; 86900; 86901; 96374; 99284; J1885

== ENCOUNTER 2025-05-28 10:31 | Emergency (ER) | payer OTHER ==
[2025-05-28 10:53] VITALS: TEMP 97.1
[2025-05-28 11:42] LABS: Calcium 9.3 mg/dL (8.4-10.2); Carbon Dioxide 21.0 mmol/L (22-30); Creatinine 1 0.73 mg/dL (0.52-1.04); EST GLOMERULAR FILTRATION RATE 102.0 ML/MIN; Glucose 109.0 mg/dL (74-106); Potassium 3.9 mmol/L (3.5-5.1); SGOT/AST 39.0 U/L (14-36); SGPT/ALT 39.0 U/L (0-35); Total Protein 8.0 g/dL (6.3-8.2)
--- NOTE | 2025-05-28 11:47 | ERPHSYRPT ---
- History of Present Illness Source: patient Exam Limitations: no limitations Patient Subjective Stated Complaint: pt complains of pain in her right arm of 8/10 and left arm of 6/10. This began 3 days ago. Triage Nursing Assessment: Patient walks to the bed, breathing is easy and skin in warm pink and dry. She states 3 days ago she began with acute pain in her left arm. That arm pain improved some, then yesterday the pain began in her right arm. She presently rates the right arm 8/10 and the left 6/10. ROM is limited, pulses are palpable. She is tachycardic and hypertensive. She states she is chronically in the low 100's hr and does not take anything for hypertension. Physician History: Patient has bilateralArm pain. It started in the left arm then it has shifted over to the right. It is symmetrical pain. She does not have any neck pain. She says that laying down flat makes the symptoms get better. The pain is in the arms. It radiates down from like the top of the shoulder into the arms. It does not go all the way to the hands. She does not have any weakness. Nothing makes his symptoms better. Laying down makes it improve a little bit however.She does not have anyPrior cervical disease that she knows of.She does not have any neurological deficits or weakness. Allergies/Adverse Reactions: cefaclor [From Ceclor] Allergy (Intermediate, Verified 08/12/24 09:35) Hives Home Medications: Doxepin HCl 35 mg PO HS 05/20/21 [History] clonazePAM [Clonazepam] 0.5 mg PO TID 05/20/21 [History] Buspirone HCl 5 mg [Buspar 5 mg] 15 mg PO BID PRN PRN 08/12/24 [History] buPROPion HCL [Wellbutrin Xl] 150 mg PO DAILY 05/28/25 [History] Hx Tetanus, Diphtheria Vaccination/Date Given: Yes Hx Influenza Vaccination/Date Given: No Hx Pneumococcal Vaccination/Date Given: No Immunizations Up to Date: Yes Travel Risk - International Travel Have you traveled outside of the country in past 3 weeks: No - Emerging Infectious Disease Are you exhibiting symptoms associated with any current EIDs: No - Review of Systems Constitutional: No Symptoms Eyes: No Symptoms Respiratory: No Symptoms Cardiac: No Symptoms Skin: No Symptoms Psychological: No Symptoms Endocrine: No Symptoms All Other Systems: Reviewed and Negative - Past Medical History Pertinent Past Medical History: Yes Neurological History: No Pertinent History, Stroke ENT History: No Pertinent History Cardiac History: Arrhythmia, Other Respiratory History: Asthma Endocrine Medical History: No Pertinent History Musculoskeletal History: No Pertinent History GI Medical History: Colitis, Other History: No Pertinent History Psycho-Social History: Anxiety, Depression, Panic Disorder Female Reproductive Disorders: No Pertinent History Other Medical History: ULCERATIVE COLITIS,ANEMIA, heart murmur, current smoker (vape), mitral valve prolapse - Past Surgical History Past Surgical History: Yes Neuro Surgical History: No Pertinent History Cardiac: No Pertinent History Respiratory: No Pertinent History Gastrointestinal: No Pertinent History Genitourinary: No Pertinent History Musculoskeletal: No Pertinent History Female Surgical History: Section, Tubal Ligation Significant Family History: no pertinent family hx - Female History Hx Last Menstrual Period: 04/22/2025 Hx Now: No - Social History Smoking Status: Former smoker How long have you smoked: 10yrs Exposure to second hand smoke: No Drug Use: none - Social Determinants of Health Will the patient participate in the screening: Yes Do you worry about a steady place to live?: No Do you have any problems with any of the following?: No known problems In the past 12 months,have you had to go without utilities?: No Transportation Issues: No Has anyone in your support network made you feel unsafe?: No Have you or anyone in your house had to go w/o enough food: No - Nursing Vital Signs Nursing Vital Signs: Initial Vital Signs Temperature 97.1 F 05/28/25 10:37 Pulse Rate 124 H 05/28/25 10:37 Respiratory Rate 18 05/28/25 10:37 Blood Pressure 174/111 05/28/25 10:37 O2 Sat by Pulse Oximetry 98 05/28/25 10:37 Pain Scale Pain Intensity 8 - Physical Exam General Appearance: no apparent distress Eye Exam: PERRL/EOMI Neck Exam: normal inspection, non-tender, supple Respiratory Exam: normal breath sounds, lungs clear, No chest tenderness Back Exam: normal inspection, normal range of motion, No CVA tenderness, No vertebral tenderness Extremity Exam: normal inspection, normal range of motion Neurologic Exam: alert, oriented x 3, cooperative, account services associate II-XII nml as tested, normal mood/affect Skin Exam: normal color, warm, dry SpO2: 98 - Course Nursing assessment & vital signs reviewed: Yes EKG Interpreted by Me: RATE Rhythm Strip: Rate Ordered Tests: Active Orders 24 hr Category Date Time Status CMP Stat Lab 05/28/25 11:27 Completed MAG [MAGNESIUM] Stat Lab 05/28/25 11:27 Completed SED RATE [Erythrocyte Sedimentation Rate] Stat Lab 05/28/25 11:27 Completed Medication Summary Discontinued Medications Generic Name Dose Route Start Last Admin Trade Name Patrick PRN Reason Stop Dose Admin Ketorolac Tromethamine 30 mg 05/28/25 12:35 Ketorolac Tromethamine 30 Mg/Ml Inj IM 05/28/25 12:36 STAT ONE Lab/Rad Data: Laboratory Result Diagrams 05/28/25 11:27 Laboratory Results 05/28/25 05/28/25 Range/Units 11:27 11:27 ESR 45 H (0-20) mm/hr Sodium 136 (135-145) mmol/L Potassium 3.9 (3.5-5.1) mmol/L Chloride 104 (98-107) mmol/L Carbon Dioxide 21 L (22-30) mmol/L Anion Gap 14.9 (5-15) MEQ/L BUN 9 (7-17) mg/dL Creatinine 0.73 (0.52-1.04) mg/dL Estimated GFR 102.0 ML/MIN Glucose 109 H (74-106) mg/dL Calcium 9.3 (8.4-10.2) mg/dL Magnesium 1.9 (1.6-2.3) mg/dL Total Bilirubin 1.20 (0.2-1.3) mg/dL AST 39 H (14-36) U/L ALT 39 H (0-35) U/L Alkaline Phosphatase 135 H (38-126) U/L Serum Total Protein 8.0 (6.3-8.2) g/dL Albumin 4.4 (3.5-5.0) g/dL - Progress Progress: improved Progress Note: Patient does not think this is related to the reason that she is here but she is worried that she may have some electrolyte abnormalities. She says that she has a very poor diet and is concerned that she may have potassium or magnesium issues. I told her we get a BMP. As for her other symptoms. I believe that is probably coming from a cervicalRadiculopathy.The pain is symmetrical. It seems to get some relief when she lays down and there is been no trauma.She says she remembers it happening after she tried to undo a very firmly stuck jar.I am giving herSome prednisone Prescriptionand Toradol Here. i also given her some [place] prescription.. She is going to follow-up with her primary care doctor. 05/28/25 11:45 05/28/25 12:38 - Departure Departure Disposition: Home Clinical Impression: Degenerative disc disease, cervical Condition: Stable Critical Care Time: No Referrals: ENRICO MCDOWELL MD [Primary Care Provider, INTERNAL MEDICINE] - Follow up/PCP as directed Instructions: Degenerative disc disease - ED discharge instructions Prescriptions: Hydrocodone/Acetaminophen [Hydrocodone-Acetamin 5-325 mg] 1 tab PO Q6HPRN PRN #14 tablet MDD 4 PRN Reason: Pain Prednisone 20 mg [Deltasone 20 mg] 20 mg PO TID #12 tablet
[2025-05-28] MEDS ORDERED: TORAdol 30 mg Injection ONE (12:40)
[2025-05-28] MEDS: TORAdol 30 mg Injection IM ONE (12:41)
[2025-05-28 12:42] VITALS: O2SAT 98
[2025-05-28 13:04] VITALS: BP 139/107; PULSE 113; RESP 18
== END 2025-05-28 13:13 | disposition home or self-care (01) ==
LOC: ED 10:31
DX: M50.10 Cervical disc disorder with radiculopathy, unspecified cervical region (principal); M79.602 Pain in left arm; M79.601 Pain in right arm; Z79.891 Long term (current) use of opiate analgesic; Z79.52 Long term (current) use of systemic steroids; Z79.899 Other long term (current) drug therapy

== ENCOUNTER 2025-06-01 11:19 | Emergency (ER) | payer OTHER ==
[2025-06-01 11:31] VITALS: RESP 18; TEMP 97.4; O2SAT 99
--- NOTE | 2025-06-01 12:01 | XRAY ---
Indication: Pain. Comparison: None 3 view right ankle demonstrates osteopenia and small plantar heel spur. No other bony, articular, or soft tissue abnormalities.
[2025-06-01] MEDS ORDERED: TORAdol 30 mg Injection ONE (12:05)
[2025-06-01] MEDS: TORAdol 30 mg Injection IM ONE (12:06)
--- NOTE | 2025-06-01 12:14 | ERPHSYRPT ---
- History of Present Illness Time Seen by Provider: 06/01/25 11:46 Source: patient Exam Limitations: no limitations Patient Subjective Stated Complaint: patient stated she woke up this morning and her right foot was swollen and tender, patient states she is unable to bear weight on rle Triage Nursing Assessment: patient presents to ed with complaints of right foot pain, right foot appears slightly swollen, pulse palpable, skin n/w/d, unable to bear weight to right lower extremity, patient states pain is 10/10 Physician History: 49-year-old female presented in the ER with complaints of right ankle pain and swelling since yesterday. Patient reports she has issues with her right knee and last night was hurting in the ankle without any known trauma. Patient reports possibly favoring/altered gait because of pain in the knee. This morning she woke up with swelling and is having hard time weightbearing. Swelling is more on the lateral side. No known trauma. Allergies/Adverse Reactions: cefaclor [From Ceclor] Allergy (Intermediate, Verified 08/12/24 09:35) Hives Home Medications: Doxepin HCl 35 mg PO HS 05/20/21 [History] clonazePAM [Clonazepam] 0.5 mg PO TID 05/20/21 [History] Buspirone HCl 5 mg [Buspar 5 mg] 15 mg PO BID PRN PRN 08/12/24 [History] buPROPion HCL [Wellbutrin Xl] 150 mg PO DAILY 05/28/25 [History] Hx Tetanus, Diphtheria Vaccination/Date Given: Yes Hx Influenza Vaccination/Date Given: No Hx Pneumococcal Vaccination/Date Given: No Travel Risk - International Travel Have you traveled outside of the country in past 3 weeks: No - Emerging Infectious Disease Are you exhibiting symptoms associated with any current EIDs: No - Review of Systems Constitutional: No Symptoms Ears, Nose, & Throat: No Symptoms Respiratory: No Symptoms Cardiac: No Symptoms Musculoskeletal: Arthralgias, Joint Pain, Joint Swelling Skin: No Symptoms Neurological: No Symptoms Endocrine: No Symptoms Hematologic/Lymphatic: No Symptoms - Past Medical History Pertinent Past Medical History: Yes Neurological History: No Pertinent History, Stroke ENT History: No Pertinent History Cardiac History: Arrhythmia, Other Respiratory History: Asthma Endocrine Medical History: No Pertinent History Musculoskeletal History: No Pertinent History GI Medical History: Colitis, Other History: No Pertinent History Psycho-Social History: Anxiety, Depression, Panic Disorder Female Reproductive Disorders: No Pertinent History Other Medical History: ULCERATIVE COLITIS,ANEMIA, heart murmur, current smoker (vape), mitral valve prolapse - Past Surgical History Past Surgical History: Yes Neuro Surgical History: No Pertinent History Cardiac: No Pertinent History Respiratory: No Pertinent History Gastrointestinal: No Pertinent History Genitourinary: No Pertinent History Musculoskeletal: No Pertinent History Female Surgical History: Section, Tubal Ligation Significant Family History: no pertinent family hx - Female History Hx Last Menstrual Period: 04/22/2025 Hx Now: No - Social History Smoking Status: Never smoker Exposure to second hand smoke: Yes Drug Use: none - Social Determinants of Health Will the patient participate in the screening: Yes Do you worry about a steady place to live?: No Do you have any problems with any of the following?: No known problems In the past 12 months,have you had to go without utilities?: No Transportation Issues: No Has anyone in your support network made you feel unsafe?: No Have you or anyone in your house had to go w/o enough food: No - Nursing Vital Signs Nursing Vital Signs: Initial Vital Signs Temperature 97.4 F 06/01/25 11:19 Pulse Rate 100 H 06/01/25 11:19 Respiratory Rate 18 06/01/25 11:19 Blood Pressure 171/106 06/01/25 11:19 O2 Sat by Pulse Oximetry 99 06/01/25 11:19 Pain Scale Pain Intensity 5 - Physical Exam General Appearance: no apparent distress Neck Exam: normal inspection, full range of motion Cardiovascular/Respiratory Exam: normal breath sounds, regular rate/rhythm Ankle Exam: right ankle: bone tenderness (Lateral malleolus), limited range of motion, pain, soft tissue tenderness, swelling Foot Exam: right foot: bone tenderness (Calcaneum area), pain, soft tissue tenderness, swelling Neuro/Tendon Exam: normal sensation, normal motor functions Mental Status Exam: alert, oriented x 3, cooperative Skin Exam: normal color SpO2 Interpretation: normal SpO2: 99 O2 Delivery: Room Air Ordered Tests: Active Orders 24 hr Category Date Time Status ANKLE (3 VIEWS) Stat Exams 06/01/25 11:45 Completed Medication Summary Discontinued Medications Generic Name Dose Route Start Last Admin Trade Name Freq PRN Reason Stop Dose Admin Ketorolac Tromethamine 30 mg 06/01/25 12:04 06/01/25 12:06 Ketorolac Tromethamine 30 Mg/Ml Inj IM 06/01/25 12:05 30 mg STAT ONE Administration Ketorolac Tromethamine Confirm 06/01/25 12:05 Ketorolac Tromethamine 30 Mg/Ml Inj Administered 06/01/25 12:06 Dose 30 mg .ROUTE .STK-MED ONE - Progress Progress: pain not gone completely Progress Note: 06/01/25 12:12 Differential diagnosis: Ankle fracture/dislocation/sprain/strain 49-year-old is evaluated in the ER for right ankle pain and swelling without any known trauma. Patient does have some right knee pain for which she has a brace on. She is favoring to help with her knee pain. This might be the cause of injury to the right ankle. X-rays right ankle are negative for fracture dislocation interpreted by me followed by official read. I believe patient has sprain, recommended long walking boot and outpatient podiatry/orthopedic follow-up. Discussed signs symptoms of worsening and return to ER which she seems understanding. Stable for discharge Patient is requesting narcotic pain medication which she is advised that they are not recommended as initial treatment for ankle sprain. Complexity of problems addressed: Acute Complexity of data reviewed/analyzed: Moderate Risk of complication:: Low Counseled pt/family regarding: diagnosis, need for follow-up, rad results Medical Desision Making - Diagnostic Testing Diagnostic test were ordered, analyzed, and reviewed by me: Yes Radiological Interpretation: Interpreted by me - Risk of complications The pt has a mod risk of morbidity or mortality based on: Need for prescription drug management - Departure Departure Disposition: Home Clinical Impression: Ankle sprain Condition: Stable Critical Care Time: No Referrals: ENRICO MCDOWELL MD [Primary Care Provider, INTERNAL MEDICINE] - Follow up with PCP 1 day MARIFER WEISS DPM [ACTIVE STAFF, PODIATRY] - Follow up/PCP as directed Referral Note: Tomorrow for evaluation Additional Instructions: Intermittent ice application. Tylenol/ibuprofen as needed for pain. Keep it elevated. Avoid exertional activities. Follow-up with orthopedic/podiatry for reevaluation. Return to ER for any worsening. Prescriptions: Ibuprofen 600 mg PO Q6HPRN PRN 10 Days #20 tablet PRN Reason: Pain
[2025-06-01 12:34] VITALS: BP 142/98; PULSE 80
== END 2025-06-01 12:35 | disposition home or self-care (01) ==
LOC: ED 11:19
DX: S93.401A Sprain of unspecified ligament of right ankle, initial encounter (principal); Z79.899 Other long term (current) drug therapy

== ENCOUNTER 2025-07-23 12:14 | Inpatient (IN) | payer OTHER ==
--- NOTE | 2025-07-23 12:46 | ERPHSYRPT ---
- History of Present Illness Time Seen by Provider: 07/23/25 12:44 Historian: patient Physician History: Milagro a 49-year-old obese white female who presents to the emergency room with 2 weeks of pain nausea and vomiting and diarrhea. Patient describes the pain simply as pain intermittent nonprovoked self-limited is accompanied by nausea vomiting diarrhea anorexia. Patient denies any melena hematochezia or hematemesis. Patient denied any dysuria pyuria hematuria or flank pain. Allergies/Adverse Reactions: cefaclor [From [facility]] Allergy (Intermediate, Verified 07/23/25 12:36) Hives Home Medications: Doxepin HCl 35 mg PO HS 05/20/21 [History] clonazePAM [Clonazepam] 0.5 mg PO TID 05/20/21 [History] Buspirone HCl 5 mg [Buspar 5 mg] 15 mg PO BID PRN PRN 08/12/24 [History] buPROPion HCL [Wellbutrin Xl] 150 mg PO DAILY 05/28/25 [History] Hx Tetanus, Diphtheria Vaccination/Date Given: Yes Hx Influenza Vaccination/Date Given: No Hx Pneumococcal Vaccination/Date Given: No Travel Risk - Emerging Infectious Disease Are you exhibiting symptoms associated with any current EIDs: No - Review of Systems Constitutional: No Fever, No Chills Eyes: No Symptoms Ears, Nose, & Throat: No Symptoms Respiratory: No Cough, No Dyspnea Cardiac: No Chest Pain, No Edema, No Syncope Abdominal/Gastrointestinal: Abdominal Pain, Nausea, Vomiting, Diarrhea Genitourinary Symptoms: No Dysuria Musculoskeletal: No Back Pain, No Neck Pain Skin: No Rash Neurological: No Dizziness, No Focal Weakness, No Sensory Changes Psychological: No Symptoms Endocrine: No Symptoms All Other Systems: Reviewed and Negative - Past Medical History Pertinent Past Medical History: Yes Neurological History: No Pertinent History, Stroke ENT History: No Pertinent History Cardiac History: Arrhythmia, Other Respiratory History: Asthma Endocrine Medical History: No Pertinent History Musculoskeletal History: No Pertinent History GI Medical History: Colitis, Other History: No Pertinent History Psycho-Social History: Anxiety, Depression, Panic Disorder Female Reproductive Disorders: No Pertinent History Other Medical History: ULCERATIVE COLITIS,ANEMIA, heart murmur, current smoker (vape), mitral valve prolapse - Past Surgical History Past Surgical History: Yes Neuro Surgical History: No Pertinent History Cardiac: No Pertinent History Respiratory: No Pertinent History Gastrointestinal: No Pertinent History Genitourinary: No Pertinent History Musculoskeletal: No Pertinent History Female Surgical History: Section, Tubal Ligation Significant Family History: no pertinent family hx - Female History Hx Last Menstrual Period: 04/22/2025 Hx Now: No - Social History Smoking Status: Never smoker Exposure to second hand smoke: Yes Drug Use: none - Social Determinants of Health Will the patient participate in the screening: Yes Do you worry about a steady place to live?: No In the past 12 months,have you had to go without utilities?: No Transportation Issues: No Has anyone in your support network made you feel unsafe?: No Have you or anyone in your house had to go w/o enough food: No - Nursing Vital Signs Nursing Vital Signs: Initial Vital Signs Temperature 98.6 F 07/23/25 12:14 Pulse Rate 89 07/23/25 12:14 Respiratory Rate 18 07/23/25 12:14 Blood Pressure 98/57 07/23/25 12:14 O2 Sat by Pulse Oximetry 99 07/23/25 12:14 Pain Scale Pain Intensity 5 - Physical Exam General Appearance: no apparent distress, alert Eye Exam: PERRL/EOMI, eyes nml inspection Ears, Nose, Throat Exam: normal ENT inspection, pharynx normal, moist mucous membranes Neck Exam: normal inspection, non-tender, supple, full range of motion Respiratory Exam: normal breath sounds, lungs clear, No respiratory distress Cardiovascular Exam: regular rate/rhythm, normal heart sounds Gastrointestinal/Abdomen Exam: soft, No tenderness, No mass Back Exam: normal inspection, normal range of motion, No CVA tenderness, No vertebral tenderness Extremity Exam: normal inspection, normal range of motion, pelvis stable Neurologic Exam: alert, oriented x 3, cooperative, normal mood/affect, nml cerebellar function, sensation nml, No motor deficits Skin Exam: normal color, warm, dry Ordered Tests: Active Orders 24 hr Category Date Time Status ABDOMEN AND PELVIS W CONTRAST [CT] Stat Exams 07/23/25 12:41 Completed CBC W DIFF Stat Lab 07/23/25 13:00 Completed CMP Stat Lab 07/23/25 13:00 Completed CULTURE,URINE Stat Lab 07/23/25 12:41 Received HCG QUALITATIVE, URINE Stat Lab 07/23/25 12:41 Completed LIPASE Stat Lab 07/23/25 13:00 Completed Manual Differential NC Stat Lab 07/23/25 13:00 Completed UA W/RFX UR CULTURE Stat Lab 07/23/25 12:41 Completed Medication Summary Generic Name Dose Route Start Last Admin Trade Name Patrick PRN Reason Stop Dose Admin Lactated Ringer's 1,000 mls @ 999 mls/hr 07/23/25 13:00 07/23/25 16:43 Lactated Ringers IV 08/22/25 12:59 999 mls/hr .Q1H1M MICHAEL Administration Levofloxacin/Dextrose 500 mg in 100 mls @ 100 mls/hr 07/23/25 17:35 Levofloxacin 500mg/100ml D5w IV 07/23/25 18:34 STAT STA Discontinued Medications Generic Name Dose Route Start Last Admin Trade Name Patrick PRN Reason Stop Dose Admin Acetaminophen 650 mg 07/23/25 15:56 07/23/25 15:58 Acetaminophen 325 Mg Tablet PO 07/23/25 15:57 650 mg STAT STA Administration Acetaminophen Confirm 07/23/25 15:57 Acetaminophen 325 Mg Tablet Administered 07/23/25 15:58 Dose 650 mg .ROUTE .STK-MED ONE Ondansetron HCl 4 mg 07/23/25 12:43 07/23/25 13:05 Ondansetron Hcl 4 Mg/2 Ml Vial IV 07/23/25 12:44 4 mg STAT ONE Administration Ondansetron HCl Confirm 07/23/25 13:03 Ondansetron Hcl 4 Mg/2 Ml Vial Administered 07/23/25 13:04 Dose 4 mg .ROUTE .STK-MED ONE Ondansetron HCl 4 mg 07/23/25 16:30 07/23/25 16:32 Ondansetron Hcl 4 Mg/2 Ml Vial IV 07/23/25 16:31 4 mg STAT ONE Administration Ondansetron HCl Confirm 07/23/25 16:31 Ondansetron Hcl 4 Mg/2 Ml Vial Administered 07/23/25 16:32 Dose 4 mg .ROUTE .STK-MED ONE Lab/Rad Data: Laboratory Result Diagrams 07/23/25 13:00 07/23/25 13:00 Laboratory Results 07/23/25 07/23/25 07/23/25 Range/Units 13:00 13:00 12:41 WBC 12.4 H (3.98-10.04) x10^3/uL RBC 3.93 (3.93-5.22) x10^6/uL Hgb 8.8 L (11.2-15.7) g/dL Hct 27.5 L (34.1-44.9) % MCV 70.0 L (79.4-94.8) fL MCH 22.4 L (25.6-32.2) pg MCHC 32.0 L (32.2-35.5) g/dL RDW 17.9 H (11.7-14.4) % Plt Count 596 H (182-369) x10^3/uL MPV 10.1 (9.4-12.3) fL Segmented Neutrophils 79 H (34.0-71.1) % Lymphocytes (Manual) 15 L (19.3-51.7) % Monocytes (Manual) 5 (4.7-12.5) % Basophils (Manual) 1 (0.1-1.2) % Hypochromia 2+ Platelet Estimate NORMAL (NORMAL) RBC Morphology ABNORMAL Poikilocytosis 2+ Anisocytosis 2+ Sodium 131 L (135-145) mmol/L Potassium 3.2 L (3.5-5.1) mmol/L Chloride 94 L (98-107) mmol/L Carbon Dioxide 30 (22-30) mmol/L Anion Gap 10.2 (5-15) MEQ/L BUN 12 (7-17) mg/dL Creatinine 0.78 (0.52-1.04) mg/dL Estimated GFR 94.2 ML/MIN Glucose 118 H (74-106) mg/dL Calcium 7.8 L (8.4-10.2) mg/dL Total Bilirubin 2.10 H (0.2-1.3) mg/dL AST 186 H (14-36) U/L ALT 107 H (0-35) U/L Alkaline Phosphatase 250 H (38-126) U/L Serum Total Protein 6.5 (6.3-8.2) g/dL Albumin 2.9 L (3.5-5.0) g/dL Lipase 43 (23-300) U/L Urine Color (Yellow) Urine Appearance (Clear) Urine pH (4.6-8.0) Ur Specific [place] (1.005-1.030) Urine Protein (Negative) Urine Glucose (UA) (Negative) mg/dL Urine Ketones (Negative) Urine Blood (Negative) Urine Nitrite (Negative) Urine Bilirubin (Negative) Urine Urobilinogen (0.2) mg/dL Ur Leukocyte Esterase (Negative) U Hyaline Cast (Auto) (0-2) /LPF Urine Microscopic RBC (0-5) /HPF Urine Microscopic WBC (0-5) /HPF Ur Epithelial Cells (None Seen) /HPF Urine Bacteria (None Seen) /HPF Urine Culture Reflexed (NO) Urine HCG, Qual NEGATIVE (NEGATIVE) 07/23/25 Range/Units 12:41 WBC (3.98-10.04) x10^3/uL RBC (3.93-5.22) x10^6/uL Hgb (11.2-15.7) g/dL Hct (34.1-44.9) % MCV (79.4-94.8) fL MCH (25.6-32.2) pg MCHC (32.2-35.5) g/dL RDW (11.7-14.4) % Plt Count (182-369) x10^3/uL MPV (9.4-12.3) fL Segmented Neutrophils (34.0-71.1) % Lymphocytes (Manual) (19.3-51.7) % Monocytes (Manual) (4.7-12.5) % Basophils (Manual) (0.1-1.2) % Hypochromia Platelet Estimate (NORMAL) RBC Morphology Poikilocytosis Anisocytosis Sodium (135-145) mmol/L Potassium (3.5-5.1) mmol/L Chloride (98-107) mmol/L Carbon Dioxide (22-30) mmol/L Anion Gap (5-15) MEQ/L BUN (7-17) mg/dL Creatinine (0.52-1.04) mg/dL Estimated GFR ML/MIN Glucose (74-106) mg/dL Calcium (8.4-10.2) mg/dL Total Bilirubin (0.2-1.3) mg/dL AST (14-36) U/L ALT (0-35) U/L Alkaline Phosphatase (38-126) U/L Serum Total Protein (6.3-8.2) g/dL Albumin (3.5-5.0) g/dL Lipase (23-300) U/L Urine Color Dark Yellow A (Yellow) Urine Appearance Cloudy A (Clear) Urine pH 6.0 (4.6-8.0) Ur Specific [place] 1.020 (1.005-1.030) Urine Protein 30 (Negative) Urine Glucose (UA) Negative (Negative) mg/dL Urine Ketones Trace A (Negative) Urine Blood Moderate A (Negative) Urine Nitrite Positive A (Negative) Urine Bilirubin Moderate A (Negative) Urine Urobilinogen 1.0 A (0.2) mg/dL Ur Leukocyte Esterase Moderate A (Negative) U Hyaline Cast (Auto) 3-5 A (0-2) /LPF Urine Microscopic RBC 6-10 A (0-5) /HPF Urine Microscopic WBC 51-100 A (0-5) /HPF Ur Epithelial Cells Moderate A (None Seen) /HPF Urine Bacteria Many A (None Seen) /HPF Urine Culture Reflexed YES (NO) Urine HCG, Qual (NEGATIVE) - Progress Progress: unchanged Progress Note: The patient was CT of the abdomen pelvis read byRadiologist as bilateral perinephric stranding consistent with bilateral pyelonephritis. Patient had a CBC remarkable for white count 12.4 hemoglobin with 8.8 and platelet count 596,000 patient had a chemistry that was remarkable for Sodium 131 also remarkable where is the AST of 186 and ALT of 107 alk phos was 250. Lipase was normal was normal urinalysis was positive for too numerous to count white cells. In the emergency department patient was given IV hydration with saline patient was also given IV Levaquin after we get the urinalysis back at this point the patient will need to be admitted for further evaluation and treatment I discussed case with the hospitalist who agreed to admit the patient differential diagnosis is acute complicated UTI pneumonia gastroenteritis enterocolitis diverticulitis 07/23/25 17:40 Discussed with : Other Will see patient in: hospital (full admit) - Departure Departure Disposition: In-patient Admission Clinical Impression: Pyelonephritis, Generalized abdominal pain, Transaminitis Condition: Fair Critical Care Time: No Referrals: ENRICO MCDOWELL MD [Primary Care Provider, INTERNAL MEDICINE] - Follow up/PCP as directed
[2025-07-23] MEDS ORDERED: Zofran 4 MG/2 ML VIAL ONE ×2 (13:03→16:31)
[2025-07-23] MEDS ORDERED: Lactated Ringers 1,000 ML IV ONE (13:03)
[2025-07-23] MEDS: Lactated Ringers 1,000 ML IV SCH (13:04)
[2025-07-23] MEDS: Zofran 4 MG/2 ML VIAL IV ONE ×2 (13:05→16:32)
[2025-07-23 13:11] LABS: Hematocrit 27.5 % (34.1-44.9); Hemoglobin 8.8 g/dL (11.2-15.7); Mean Corpuscular Hemoglobin 22.4 pg (25.6-32.2); Mean Corpuscular Hgb Concent. 32.0 g/dL (32.2-35.5); Platelet Count 596 x10^3/uL (182-369); Red Blood Count 3.93 x10^6/uL (3.93-5.22); White Blood Count 12.4 x10^3/uL (3.98-10.04)
[2025-07-23 13:24] LABS: Calcium 7.8 mg/dL (8.4-10.2); Carbon Dioxide 30.0 mmol/L (22-30); Creatinine 1 0.78 mg/dL (0.52-1.04); EST GLOMERULAR FILTRATION RATE 94.2 ML/MIN; Glucose 118.0 mg/dL (74-106); Potassium 3.2 mmol/L (3.5-5.1); SGOT/AST 186.0 U/L (14-36); SGPT/ALT 107.0 U/L (0-35); Total Protein 6.5 g/dL (6.3-8.2)
[2025-07-23 15:10] LABS: HCG URINE TEST NEGATIVE (NEGATIVE)
[2025-07-23 15:14] LABS: Glucose, Urine Negative (Negative); Protein,Urine Dip 30 (Negative); WBC 51-100 /HPF (0-5)
[2025-07-23] MEDS ORDERED: TYLENOL 325 MG ONE (15:57)
[2025-07-23] MEDS: TYLENOL 325 MG PO STA (15:58)
--- NOTE | 2025-07-23 17:03 | XRAY ---
CLINICAL HISTORY: lower abd pain COMPARISON: No prior studies available for comparison. TECHNIQUE: CT of the abdomen and pelvis was performed with 80cc isovue 370 contrast, using the following protocol: axial images were obtained, with reconstructed coronal and sagittal images. One of the following dose reduction techniques was utilized for this exam: automated exposure control, adjustment of the mA and/or kV according to patient size, and use of iterative reconstruction. FINDINGS: Abdomen: Liver: The liver is enlarged (measuring 20.0 cm) and shows diffuse low attenuation. No focal lesions, cysts, or masses are identified. The hepatic vasculature and biliary ducts are unremarkable. Gallbladder and Biliary System: The gallbladder is normal in size and shape. No wall thickening, pericholecystic fluid, or gallstones are identified. The common bile duct is normal in caliber without dilation. Pancreas: The pancreatic head, body, and tail are visualized and appear normal in size and density. No pancreatic masses or calcifications are noted. The pancreatic duct is not dilated. Spleen: The spleen is normal in size, shape, and density. No splenic lesions or masses are identified. Appendix: The appendix is normal in size, without periappendiceal fat stranding and without an appendicolith. No evidence of appendiceal abscess or perforation. Kidneys and Adrenal Glands: Both kidneys are normal in size, shape, and position. Cortical thickness is within normal limits. Both kidneys show multiple rounded and wedge-shaped areas of low attenuation, evident in the delayed images, associated with perinephric fat plane smudging, which is evident on the right side. No renal calculi or hydronephrosis. The adrenal glands are unremarkable with no evidence of masses or hyperplasia. Pelvis: Urinary Bladder: The urinary bladder is normal in contour and wall thickness. No intraluminal lesions are identified. Uterus: The uterus is normal in size and contour. No masses or abnormal thickening are identified. Ovaries: The ovaries are not well visualized, but no gross abnormalities are noted. Vagina: The vagina is normal in contour and wall thickness. Cervix: No evidence of mass or abnormal thickening. Peritoneal and Retroperitoneal Structures: No free fluid or abnormal fluid collections are identified within the abdomen or pelvis. No lymphadenopathy is noted. Bowel: The visualized bowel loops are normal in caliber and appearance. No evidence of bowel obstruction or wall thickening. Bones and Soft Tissues: The pelvic bones and soft tissues are unremarkable. No fractures or abnormal masses are identified. Multiple pelvic phleboliths are present. A small umbilical hernia containing fat is present, with an abdominal wall defect measuring 1.5 x 1.0 cm in maximum transverse and craniocaudal dimensions. IMPRESSION: 1. Bilateral renal parenchymal rounded and wedge-shaped areas of low attenuation, associated with perinephric fat plane smudging, are suggestive of bilateral pyelonephritis. Clinical and laboratory correlation is needed. 2. Fatty hepatomegaly. 3. A small umbilical hernia containing fat. Electronically Signed by: Etienne Julien MD. (07/23/2025 17:01:05 EDT)
[2025-07-23 17:04] LABS: Total Cells Counted 100
[2025-07-23 17:05] LABS: Poikilocytosis 2+
[2025-07-23] MEDS ORDERED: PROVENTIL 2.5 MG/3 ML NEB IH PRN (19:15)
[2025-07-23] MEDS: Levofloxacin 500MG/100ML D5W 500 MG/100 ML BAG IV STA (20:31)
[2025-07-23] MEDS: Reglan 10 MG/2 ML IV PRN (21:12)
[2025-07-23] MEDS ORDERED: BUSPAR 5 MG PO PRN (23:22)
[2025-07-23] MEDS: TYLENOL EXTRA STRENGTH 500 MG PO ONE (23:42)
[2025-07-23] MEDS: Toprol-Xl 25MG Tablets PO SCH (23:42)
[2025-07-24 00:41] LABS: IFOB TEST RESULTS POSITIVE (NEGATIVE)
--- NOTE | 2025-07-24 05:51 | PCM.NOTE ---
Date and Time: 07/24/25 0546 Subjective Assessment: Ms. Hester is a 49-year-old woman who presented to ED 07/24/25 with a 10-day history of nausea, vomiting, and abdominal pain at rest, associated with loose bowel movements. She denies chest pain, cough, lightheadedness, or dizziness. Exam reveals a hemodynamically stable patient with blood pressure trending low- normal, afebrile, and maintaining oxygenation on room air. Laboratory studies demonstrate leukocytosis (WBC 12.4), anemia (Hgb 8.8 ), hyponatremia (Na 131), hypokalemia (K 3.2), elevated liver enzymes (AST 186, ALT 107 ), hypoalbuminemia (2.9 ), and total bilirubin elevation (2.1). Urinalysis is notable for nitrates, leukocyte esterase, and microscopic hematuria, consistent with urinary tract infection. She has a history of recurrent UTIs. Given the severity of symptoms and bilateral renal involvement, the clinical picture is consistent with acute high-risk bilateral pyelonephritis. She also reports recent melena, and has positive occult stools. Imaging demonstrates bilateral renal wedge- and round- shaped hypoattenuating lesions with perinephric fat stranding, confirming bilateral acute pyelonephritis, as well as fatty hepatomegaly and a small fat- containing umbilical hernia. Patient was given Levaquin in the ED. 07/24/25: Patient was evaluated at the bedside this morning. She reports no episodes of nausea or vomiting overnight and states that her abdominal pain has improved since admission, though some mild discomfort persists. She endorses two loose stools overnight. She is aware of her urine culture results showing gram- negative organism with sensitivities pending. She denies new fevers, chills, dysuria, or flank pain. Patient has been informed of her improving white blood cell count, now normalized, and is agreeable to continuing current treatment plan with IV fluids and levofloxacin. She is aware of low potassium on todays labs, with supplementation ordered. - Review of Systems Constitutional: Fatigue Eyes: No Symptoms Ears, Nose, & Throat: No Symptoms Respiratory: No Symptoms Cardiac: No Symptoms Abdominal/Gastrointestinal: Abdominal Pain (discomfort ) Genitourinary Symptoms: No Symptoms Musculoskeletal: No Symptoms Skin: No Symptoms Neurological: No Symptoms Psychological: No Symptoms Endocrine: No Symptoms Hematologic/Lymphatic: No Symptoms Immunological/Allergic: No Symptoms Objective Exam General Appearance: no apparent distress Neurologic Exam: alert, oriented x 3, cooperative Skin Exam: normal color Eye Exam: PERRL Ears, Nose, Throat Exam: normal ENT inspection Neck Exam: normal inspection Respiratory Exam: normal breath sounds, lungs clear Cardiovascular Exam: regular rate/rhythm, normal heart sounds Gastrointestinal/Abdomen Exam: soft, normal bowel sounds Extremity Exam: normal inspection Back Exam: normal inspection Pelvic Exam: deferred Rectal Exam: deferred Objective Data Vital Signs: Vital Signs - 24 hr Temp Pulse Resp BP BP Pulse Ox 07/24/25 04:00 98.9 F 73 19 101/57 97 07/23/25 23:58 99.5 F 94 H 20 171/97 98 07/23/25 19:57 97.9 F 88 21 107/51 96 07/23/25 19:15 88 16 94 L 07/23/25 19:13 97.9 F 88 21 107/51 96 07/23/25 17:30 99.4 F 78 18 99/63 99 07/23/25 17:00 99.4 F 95 H 24 89/59 95 07/23/25 16:49 95 H 20 105/61 93 L 07/23/25 16:32 103/55 94 L 07/23/25 16:30 91 H 20 76/60 97 07/23/25 16:01 89 18 115/82 95 07/23/25 15:55 101.7 F 92 H 21 121/71 99 07/23/25 15:00 123/78 07/23/25 14:45 89 19 96/66 95 07/23/25 14:30 74 105/71 78 L 07/23/25 14:28 70 106/66 98 07/23/25 14:27 74 181/156 72 L 07/23/25 14:19 73 125/62 96 07/23/25 14:18 71 97 07/23/25 14:10 89 18 125/62 96 07/23/25 14:02 82 18 96 07/23/25 13:31 87 90/62 99 07/23/25 13:13 112/65 97 07/23/25 13:10 99 07/23/25 13:06 90 96 07/23/25 12:51 89 13 98/57 07/23/25 12:14 98.6 F 89 18 98/57 99 Pain Assessment - Last Documented Pain Intensity 5 Intake and Output: Intake & Output 07/21/25 07/22/25 07/23/25 07/24/25 11:59 11:59 11:59 11:59 Intake Total 1140 Output Total 300 Balance 840 Weight 120.1 kg Lab Results: Lab Results-Last 24 Hours 07/23/25 07/23/25 07/23/25 Range/Units 12:41 12:41 13:00 WBC 12.4 H (3.98-10.04) x10^3/uL RBC 3.93 (3.93-5.22) x10^6/uL Hgb 8.8 L (11.2-15.7) g/dL Hct 27.5 L (34.1-44.9) % MCV 70.0 L (79.4-94.8) fL MCH 22.4 L (25.6-32.2) pg MCHC 32.0 L (32.2-35.5) g/dL RDW 17.9 H (11.7-14.4) % Plt Count 596 H (182-369) x10^3/uL MPV 10.1 (9.4-12.3) fL Segmented Neutrophils 79 H (34.0-71.1) % Lymphocytes (Manual) 15 L (19.3-51.7) % Monocytes (Manual) 5 (4.7-12.5) % Basophils (Manual) 1 (0.1-1.2) % Hypochromia 2+ Platelet Estimate NORMAL (NORMAL) RBC Morphology ABNORMAL Poikilocytosis 2+ Anisocytosis 2+ Sodium (135-145) mmol/L Potassium (3.5-5.1) mmol/L Chloride (98-107) mmol/L Carbon Dioxide (22-30) mmol/L Anion Gap (5-15) MEQ/L BUN (7-17) mg/dL Creatinine (0.52-1.04) mg/dL Estimated GFR ML/MIN Glucose (74-106) mg/dL Calcium (8.4-10.2) mg/dL Total Bilirubin (0.2-1.3) mg/dL AST (14-36) U/L ALT (0-35) U/L Alkaline Phosphatase (38-126) U/L Serum Total Protein (6.3-8.2) g/dL Albumin (3.5-5.0) g/dL Lipase (23-300) U/L Urine Color Dark Yellow A (Yellow) Urine Appearance Cloudy A (Clear) Urine pH 6.0 (4.6-8.0) Ur Specific [place] 1.020 (1.005-1.030) Urine Protein 30 (Negative) Urine Glucose (UA) Negative (Negative) mg/dL Urine Ketones Trace A (Negative) Urine Blood Moderate A (Negative) Urine Nitrite Positive A (Negative) Urine Bilirubin Moderate A (Negative) Urine Urobilinogen 1.0 A (0.2) mg/dL Ur Leukocyte Esterase Moderate A (Negative) U Hyaline Cast (Auto) 3-5 A (0-2) /LPF Urine Microscopic RBC 6-10 A (0-5) /HPF Urine Microscopic WBC 51-100 A (0-5) /HPF Ur Epithelial Cells Moderate A (None Seen) /HPF Urine Bacteria Many A (None Seen) /HPF Urine Culture Reflexed YES (NO) Urine HCG, Qual NEGATIVE (NEGATIVE) Stl Occult Blood (IFOB) (NEGATIVE) 07/23/25 07/23/25 Range/Units 13:00 23:59 WBC (3.98-10.04) x10^3/uL RBC (3.93-5.22) x10^6/uL Hgb (11.2-15.7) g/dL Hct (34.1-44.9) % MCV (79.4-94.8) fL MCH (25.6-32.2) pg MCHC (32.2-35.5) g/dL RDW (11.7-14.4) % Plt Count (182-369) x10^3/uL MPV (9.4-12.3) fL Segmented Neutrophils (34.0-71.1) % Lymphocytes (Manual) (19.3-51.7) % Monocytes (Manual) (4.7-12.5) % Basophils (Manual) (0.1-1.2) % Hypochromia Platelet Estimate (NORMAL) RBC Morphology Poikilocytosis Anisocytosis Sodium 131 L (135-145) mmol/L Potassium 3.2 L (3.5-5.1) mmol/L Chloride 94 L (98-107) mmol/L Carbon Dioxide 30 (22-30) mmol/L Anion Gap 10.2 (5-15) MEQ/L BUN 12 (7-17) mg/dL Creatinine 0.78 (0.52-1.04) mg/dL Estimated GFR 94.2 ML/MIN Glucose 118 H (74-106) mg/dL Calcium 7.8 L (8.4-10.2) mg/dL Total Bilirubin 2.10 H (0.2-1.3) mg/dL AST 186 H (14-36) U/L ALT 107 H (0-35) U/L Alkaline Phosphatase 250 H (38-126) U/L Serum Total Protein 6.5 (6.3-8.2) g/dL Albumin 2.9 L (3.5-5.0) g/dL Lipase 43 (23-300) U/L Urine Color (Yellow) Urine Appearance (Clear) Urine pH (4.6-8.0) Ur Specific [place] (1.005-1.030) Urine Protein (Negative) Urine Glucose (UA) (Negative) mg/dL Urine Ketones (Negative) Urine Blood (Negative) Urine Nitrite (Negative) Urine Bilirubin (Negative) Urine Urobilinogen (0.2) mg/dL Ur Leukocyte Esterase (Negative) U Hyaline Cast (Auto) (0-2) /LPF Urine Microscopic RBC (0-5) /HPF Urine Microscopic WBC (0-5) /HPF Ur Epithelial Cells (None Seen) /HPF Urine Bacteria (None Seen) /HPF Urine Culture Reflexed (NO) Urine HCG, Qual (NEGATIVE) Stl Occult Blood (IFOB) POSITIVE A (NEGATIVE) Radiology Exams: Radiology Procedures Category Date Time Status ABDOMEN AND PELVIS W CONTRAST [CT] Stat Exams 07/23/25 12:41 Completed Medications: Medications Generic Name Dose Route Start Last Admin Trade Name Freq PRN Reason Stop Dose Admin Acetaminophen 1,000 mg 07/23/25 23:30 07/23/25 23:42 Acetaminophen 500 Mg Tablet PO 07/23/25 23:31 1,000 mg STAT ONE Administration Albuterol Sulfate 2.5 mg 07/23/25 19:15 Albuterol Sulfate 2.5 Mg/3 Ml Neb IH 08/22/25 19:14 Q4H PRN PRN SHORTNESS OF BREATH/WHEEZING Buspirone HCl 15 mg 07/23/25 23:22 Buspirone Hcl 5 Mg Tablet PO 08/23/25 09:59 BID PRN ANXIETY Clonazepam 0.5 mg 07/23/25 23:25 07/23/25 23:42 Clonazepam 0.5 Mg Tablet PO 08/22/25 23:24 0.5 mg TID MICHAEL Administration Levofloxacin/Dextrose 750 mg in 150 mls @ 100 mls/hr 07/24/25 10:00 Levofloxacin 750mg/150ml D5w IV 07/28/25 09:59 Q24H10 MICHAEL Metoclopramide HCl 5 mg 07/23/25 19:42 07/23/25 21:12 Metoclopramide Hcl 10 Mg/2 Ml Vial IV 08/22/25 19:44 5 mg Q6H PRN Administration NAUSEA/VOMITING Metoprolol Succinate 25 mg 07/23/25 23:37 07/23/25 23:42 Metoprolol Succinate 25 Mg Xl Tab PO 08/22/25 23:36 25 mg DAILY MICHAEL Administration Discontinued Medications Generic Name Dose Route Start Last Admin Trade Name Freq PRN Reason Stop Dose Admin Acetaminophen 650 mg 07/23/25 15:56 07/23/25 15:58 Acetaminophen 325 Mg Tablet PO 07/23/25 15:57 650 mg STAT STA Administration Acetaminophen Confirm 07/23/25 15:57 Acetaminophen 325 Mg Tablet Administered 07/23/25 15:58 Dose 650 mg .ROUTE .STK-MED ONE Lactated Ringer's 1,000 mls @ 999 mls/hr 07/23/25 13:00 07/23/25 19:35 Lactated Ringers IV 08/22/25 12:59 Not Given .Q1H1M MICHAEL Levofloxacin/Dextrose 500 mg in 100 mls @ 100 mls/hr 07/23/25 17:35 07/23/25 20:31 Levofloxacin 500mg/100ml D5w IV 07/23/25 18:34 100 mls/hr STAT STA Administration Lactated Ringer's Confirm 07/23/25 13:03 Lactated Ringers Administered 07/23/25 13:04 Dose 1,000 mls @ ud IV .STK-MED ONE Ondansetron HCl 4 mg 07/23/25 12:43 07/23/25 13:05 Ondansetron Hcl 4 Mg/2 Ml Vial IV 07/23/25 12:44 4 mg STAT ONE Administration Ondansetron HCl Confirm 07/23/25 13:03 Ondansetron Hcl 4 Mg/2 Ml Vial Administered 07/23/25 13:04 Dose 4 mg .ROUTE .STK-MED ONE Ondansetron HCl 4 mg 07/23/25 16:30 07/23/25 16:32 Ondansetron Hcl 4 Mg/2 Ml Vial IV 07/23/25 16:31 4 mg STAT ONE Administration Ondansetron HCl Confirm 07/23/25 16:31 Ondansetron Hcl 4 Mg/2 Ml Vial Administered 07/23/25 16:32 Dose 4 mg .ROUTE .STK-MED ONE Assessment/Plan (1) Pyelonephritis Current Visit: Yes Status: Acute Assessment & Plan: -CT confirmed bilateral renal parenchymal infection with perinephric inflammation. -Continue IV levofloxacin 750 mg daily -IVF -monitor for fluid overload. -Urine with gram - ID and blood cultures pending; antibiotics per sensitivities. -CMP/ CBC reviewed WBC now wnl at 9.5- CMP with improving transaminitis and hypokalemia-trend -Monitor for sepsis, renal abscess, or obstruction; urology consult if deterioration occurs. -Pain and nausea control as needed. Code(s): N12 - TUBULO-INTERSTITIAL NEPHRITIS, NOT SPCF ACUTE OR CHRONIC (2) Anemia Current Visit: Yes Status: Acute Assessment & Plan: Hemoglobin stable at 8 with positive occult stool test -Serial H/H monitoring; transfuse if <7 g/dL or symptomatic -Consider surgery consult -Avoid GI-irritating medications. -iron studies and repletion if deficient. Code(s): D64.9 - ANEMIA, UNSPECIFIED (3) HTN (hypertension) Current Visit: Yes Status: Acute Assessment & Plan: -Home bisoprolol switched to metoprolol 25 mg daily inpatient -Continue metoprolol, titrate PRN. -Hydralazine or enalapril PRN if additional control needed. -Avoid overcorrection during acute illness Code(s): I10 - ESSENTIAL (PRIMARY) HYPERTENSION (4) Anxiety Current Visit: Yes Status: Acute Assessment & Plan: -Stable on clonazepam 0.5 mg TID. Code(s): F41.9 - ANXIETY DISORDER, UNSPECIFIED (5) Hypokalemia Current Visit: Yes Status: Acute Assessment & Plan: -Likely due to vomiting, poor intake, and infection. -Potassium at 3.0 - 40meq x 2 ordered by overnight physician Replete potassium to maintain >4 mmol/L.- recheck labs -IV fluids with careful correction of sodium. -Monitor renal/lytes Code(s): E87.6 - HYPOKALEMIA (6) Hyponatremia Current Visit: Yes Status: Acute Assessment & Plan: -mild secondary to poor intake on admission now Na level at 138 -continue IVF Code(s): E87.1 - HYPO-OSMOLALITY AND HYPONATREMIA (7) Hepatomegaly Current Visit: Yes Status: Acute Assessment & Plan: -Imaging shows fatty liver; labs with AST 186, ALT 107, TBili 2.1 - now downtrending on review AST 132, ALT 97, ALP 203, Tbili WNL -Avoid hepatotoxic agents. -Continue trending LFTs. -Outpatient hepatology follow-up for full workup (hepatitis serologies, fibrosis assessment, metabolic risk). 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 -No acute intervention needed. -Patient education on red-flag symptoms (pain, irreducibility, nausea/vomiting). -Outpatient surgical referral if symptomatic or enlarging. Code(s): K42.9 - UMBILICAL HERNIA WITHOUT OBSTRUCTION OR GANGRENE (10) Morbid obesity with BMI of 40.0-44.9, adult Current Visit: Yes Status: Acute Assessment & Plan: -Advised diet and exercise VTE: SCD PPI:Protonix Dispo: 1-3 days Plan of care time spent > 35 mins Code(s): E66.01 - MORBID (SEVERE) OBESITY DUE TO EXCESS CALORIES; Z68.41 - BODY MASS INDEX [BMI] 40.0-44.9, ADULT
[2025-07-24 05:58] LABS: Hematocrit 26.1 % (34.1-44.9); Hemoglobin 8.0 g/dL (11.2-15.7); Mean Corpuscular Hemoglobin 22.2 pg (25.6-32.2); Mean Corpuscular Hgb Concent. 30.7 g/dL (32.2-35.5); Platelet Count 530 x10^3/uL (182-369); Red Blood Count 3.61 x10^6/uL (3.93-5.22); White Blood Count 9.5 x10^3/uL (3.98-10.04)
[2025-07-24 06:16] LABS: Calcium 7.8 mg/dL (8.4-10.2); Carbon Dioxide 30.0 mmol/L (22-30); Creatinine 1 0.76 mg/dL (0.52-1.04); EST GLOMERULAR FILTRATION RATE 97.2 ML/MIN; Glucose 107.0 mg/dL (74-106); SGOT/AST 132.0 U/L (14-36); SGPT/ALT 97.0 U/L (0-35); Total Protein 5.8 g/dL (6.3-8.2)
[2025-07-24 06:22] LABS: Potassium 3.0 mmol/L (3.5-5.1)
[2025-07-24] MEDS: Klor Con PO ONE ×2 (06:33→14:22)
[2025-07-24 09:16] LABS: Iron 62 ug/dL (37-170); TIBC 191 ug/dL (265-462)
[2025-07-24 10:11] LABS: Ferritin 197.0 ng/mL (6.24-137)
[2025-07-24] MEDS ORDERED: MEDICATION INTERVENTION MC SCH (10:30)
[2025-07-24] MEDS: Reglan 10 MG/2 ML IV PRN (12:12)
[2025-07-24] MEDS ORDERED: MELATONIN PO PRN (20:30)
[2025-07-24] MEDS: LEVOFLOXACIN 750MG/150ML D5W 750 MG/150 ML BAG IV SCH (21:13)
[2025-07-24] MEDS: NORCO 5/325 MG PO PRN (21:13)
[2025-07-24] MEDS ORDERED: DOXEPIN HCL 10 MG PO SCH (22:00)
[2025-07-25 05:30] LABS: Hematocrit 26.2 % (34.1-44.9); Hemoglobin 8.0 g/dL (11.2-15.7); Mean Corpuscular Hemoglobin 21.8 pg (25.6-32.2); Mean Corpuscular Hgb Concent. 30.5 g/dL (32.2-35.5); Platelet Count 587 x10^3/uL (182-369); Red Blood Count 3.67 x10^6/uL (3.93-5.22); White Blood Count 8.7 x10^3/uL (3.98-10.04)
[2025-07-25 05:45] LABS: Calcium 7.6 mg/dL (8.4-10.2); Carbon Dioxide 28.0 mmol/L (22-30); Creatinine 1 0.65 mg/dL (0.52-1.04); EST GLOMERULAR FILTRATION RATE 109.2 ML/MIN; Glucose 105.0 mg/dL (74-106); Potassium 3.4 mmol/L (3.5-5.1); SGOT/AST 98.0 U/L (14-36); SGPT/ALT 94.0 U/L (0-35); Total Protein 6.0 g/dL (6.3-8.2)
[2025-07-25] MEDS ORDERED: Narcan 0.4 MG/ML IV PRN (07:47)
[2025-07-25] MEDS: PROTONIX 40 MG IV IV SCH (08:31)
[2025-07-25] MEDS: Sodium Chloride 0.9% W/ 20 mEq KCl/LITER 1,000 ML IV SCH (08:31)
--- NOTE | 2025-07-25 12:37 | PCM.NOTE ---
Date and Time: 07/25/25 1232 Subjective Assessment: Ms. Hester is a 49-year-old woman with a history of recurrent UTIs who presented on 07/24/25 with 10 days of nausea, vomiting, abdominal pain, and loose stools. Workup revealed leukocytosis, anemia, hyponatremia, hypokalemia, elevated liver enzymes, hypoalbuminemia, hyperbilirubinemia, and urinalysis co nsistent with UTI. Imaging demonstrated bilateral acute pyelonephritis with perinephric fat stranding, fatty hepatomegaly, and a small umbilical hernia. She was started on IV fluids and levofloxacin. Her WBC has since normalized, abdominal pain and nausea have improved, and potassium supplementation was initiated for persistent hypokalemia. Liver enzymes are improving but remain elevated, with a hepatitis panel pending. She continues to report melena, and stool occult testing is positive; she was evaluated by general surgery, and she prefers outpatient EGD and colonoscopy. She remains afebrile, hemodynamically stable, and without chest pain, dyspnea, abdominal pain, nausea, or vomiting. On 07/25/25, she agreed to remain inpatient for continued monitoring with anticipated discharge the following day. Education was provided after staff observed concern that she may have taken outside medication, and a urine drug screen was ordered. Home health and follow-up plans are in place, and she con tinues to show clinical improvement - Review of Systems Constitutional: No Fever, No Chills Eyes: No Symptoms Ears, Nose, & Throat: No Symptoms Respiratory: No Cough, No Short Of Breath Cardiac: No Chest Pain, No Edema, No Syncope Abdominal/Gastrointestinal: No Abdominal Pain, No Nausea, No Vomiting, No Diarrhea Genitourinary Symptoms: No Dysuria Musculoskeletal: No Back Pain, No Neck Pain Skin: No Rash Neurological: No Dizziness, No Focal Weakness, No Sensory Changes Psychological: No Symptoms Endocrine: No Symptoms Hematologic/Lymphatic: No Symptoms Immunological/Allergic: No Symptoms Objective Exam General Appearance: no apparent distress, alert Neurologic Exam: alert, oriented x 3, cooperative, normal mood/affect, nml cerebellar function, sensation nml, No motor deficits Skin Exam: normal color, warm, dry Eye Exam: PERRL, EOMI, eyes nml inspection Ears, Nose, Throat Exam: normal ENT inspection, pharynx normal, moist mucous membranes Neck Exam: normal inspection, non-tender, supple, full range of motion Respiratory Exam: normal breath sounds, lungs clear, No respiratory distress Cardiovascular Exam: regular rate/rhythm, normal heart sounds Gastrointestinal/Abdomen Exam: soft, distention, No tenderness, No mass Extremity Exam: normal inspection, normal range of motion Back Exam: normal inspection, normal range of motion, No CVA tenderness, No vertebral tenderness Pelvic Exam: deferred Rectal Exam: deferred Objective Data Vital Signs: Vital Signs - 24 hr Temp Pulse Resp BP Pulse Ox 07/25/25 07:13 98.4 F 89 16 126/88 95 07/25/25 04:00 98.3 F 78 20 111/62 97 07/24/25 20:00 97.6 F 89 18 119/65 97 07/24/25 17:09 98.8 F 90 19 124/74 97 Pain Assessment - Last Documented Pain Intensity 0 Pain Scale Used [facility] Intake and Output: Intake & Output 07/23/25 07/24/25 07/25/25 07/26/25 11:59 11:59 11:59 11:59 Intake Total 1260 2646 Output Total 300 200 Balance 960 2446 Weight 120.1 kg 120.1 kg Lab Results: Lab Results-Last 24 Hours 07/24/25 07/25/25 07/25/25 Range/Units 18:40 05:00 05:00 WBC 8.7 (3.98-10.04) x10^3/uL RBC 3.67 L (3.93-5.22) x10^6/uL Hgb 8.0 L (11.2-15.7) g/dL Hct 26.2 L (34.1-44.9) % MCV 71.4 L (79.4-94.8) fL MCH 21.8 L (25.6-32.2) pg MCHC 30.5 L (32.2-35.5) g/dL RDW 19.0 H (11.7-14.4) % Plt Count 587 H (182-369) x10^3/uL MPV 10.4 (9.4-12.3) fL Sodium 134 L (135-145) mmol/L Potassium 3.4 L 3.4 L (3.5-5.1) mmol/L Chloride 101 (98-107) mmol/L Carbon Dioxide 28 (22-30) mmol/L Anion Gap 8.3 (5-15) MEQ/L BUN 7 (7-17) mg/dL Creatinine 0.65 (0.52-1.04) mg/dL Estimated GFR 109.2 ML/MIN Glucose 105 (74-106) mg/dL Calcium 7.6 L (8.4-10.2) mg/dL Total Bilirubin 0.90 (0.2-1.3) mg/dL AST 98 H (14-36) U/L ALT 94 H (0-35) U/L Alkaline Phosphatase 172 H (38-126) U/L Serum Total Protein 6.0 L (6.3-8.2) g/dL Albumin 2.7 L (3.5-5.0) g/dL Radiology Exams: Radiology Procedures Category Date Time Status ABDOMEN AND PELVIS W CONTRAST [CT] Stat Exams 07/23/25 12:41 Completed Medications: Medications Generic Name Dose Route Start Last Admin Trade Name Freq PRN Reason Stop Dose Admin Hydrocodone Bitart/Acetaminophen 1 tab 07/24/25 09:23 07/24/25 21:13 Hydrocodone/Apap 5/325 1 Tab Tablet PO 07/29/25 09:22 1 tab Q6HPRN PRN Administration PAIN Buspirone HCl 15 mg 07/24/25 09:23 Buspirone Hcl 5 Mg Tablet PO 08/23/25 09:22 BID PRN PRN ANXIETY Clonazepam 0.5 mg 07/24/25 10:00 07/25/25 08:31 Clonazepam 0.5 Mg Tablet PO 08/23/25 09:59 0.5 mg TID MICHAEL Administration Levofloxacin/Dextrose 750 mg in 150 mls @ 100 mls/hr 07/24/25 22:00 07/24/25 21:13 Levofloxacin 750mg/150ml D5w IV 08/23/25 21:59 100 mls/hr Q24H22 MICHAEL Administration Potassium Chloride/Sodium Chloride 1,000 mls @ 100 mls/hr 07/25/25 08:30 07/25/25 08:31 Sodium Chloride 0.9% W/ 20 Meq Kcl/Liter IV 08/24/25 08:29 100 mls/hr .Q10H MICHAEL Administration Melatonin 3 mg 07/24/25 20:30 Melatonin 3 Mg Tablet PO 08/23/25 20:29 HS PRN PRN sleep Metoclopramide HCl 5 mg 07/24/25 07:46 07/24/25 20:39 Metoclopramide Hcl 10 Mg/2 Ml Vial IV 08/22/25 19:41 5 mg Q6H PRN PRN Administration NAUSEA/VOMITING Metoprolol Succinate 25 mg 07/23/25 23:37 07/25/25 08:30 Metoprolol Succinate 25 Mg Xl Tab PO 08/22/25 23:36 25 mg DAILY MICHAEL Administration Miscellaneous Information 0 each 07/24/25 10:30 Medication Intervention 1 Each Each 08/23/25 10:29 .RN TO CHECK WITH PT MICHAEL Naloxone HCl 0.4 mg 07/25/25 07:47 Naloxone Hcl 0.4 Mg/Ml Ml IV 08/24/25 07:46 PRN PRN RESPIRATORY DEPRESSION Pantoprazole Sodium 40 mg 07/25/25 10:00 07/25/25 08:31 Pantoprazole 40 Mg Vial IV 08/24/25 09:59 40 mg BID MICHAEL Administration Discontinued Medications Generic Name Dose Route Start Last Admin Trade Name Shaggyq PRN Reason Stop Dose Admin Acetaminophen 650 mg 07/23/25 15:56 07/23/25 15:58 Acetaminophen 325 Mg Tablet PO 07/23/25 15:57 650 mg STAT STA Administration Acetaminophen Confirm 07/23/25 15:57 Acetaminophen 325 Mg Tablet Administered 07/23/25 15:58 Dose 650 mg .ROUTE .STK-MED ONE Acetaminophen 1,000 mg 07/23/25 23:30 07/23/25 23:42 Acetaminophen 500 Mg Tablet PO 07/23/25 23:31 1,000 mg STAT ONE Administration Albuterol Sulfate 2.5 mg 07/23/25 19:15 Albuterol Sulfate 2.5 Mg/3 Ml Neb IH 08/22/25 19:14 Q4H PRN PRN SHORTNESS OF BREATH/WHEEZING Buspirone HCl 15 mg 07/23/25 23:22 Buspirone Hcl 5 Mg Tablet PO 08/23/25 09:59 BID PRN ANXIETY Clonazepam 0.5 mg 07/23/25 23:25 07/23/25 23:42 Clonazepam 0.5 Mg Tablet PO 08/22/25 23:24 0.5 mg TID MICHAEL Administration Lactated Ringer's 1,000 mls @ 999 mls/hr 07/23/25 13:00 07/23/25 19:35 Lactated Ringers IV 08/22/25 12:59 Not Given .Q1H1M MICHAEL Levofloxacin/Dextrose 500 mg in 100 mls @ 100 mls/hr 07/23/25 17:35 07/23/25 20:31 Levofloxacin 500mg/100ml D5w IV 07/23/25 18:34 100 mls/hr STAT STA Administration Lactated Ringer's Confirm 07/23/25 13:03 Lactated Ringers Administered 07/23/25 13:04 Dose 1,000 mls @ ud IV .STK-MED ONE Sodium Chloride 1,000 mls @ 100 mls/hr 07/24/25 08:45 07/24/25 21:13 Sodium Chloride 0.9% 1000 Ml IV 08/23/25 08:44 100 mls/hr .Q10H MICHAEL Administration Metoclopramide HCl 5 mg 07/23/25 19:42 07/23/25 21:12 Metoclopramide Hcl 10 Mg/2 Ml Vial IV 08/22/25 19:44 5 mg Q6H PRN Administration NAUSEA/VOMITING Ondansetron HCl 4 mg 07/23/25 12:43 07/23/25 13:05 Ondansetron Hcl 4 Mg/2 Ml Vial IV 07/23/25 12:44 4 mg STAT ONE Administration Ondansetron HCl Confirm 07/23/25 13:03 Ondansetron Hcl 4 Mg/2 Ml Vial Administered 07/23/25 13:04 Dose 4 mg .ROUTE .STK-MED ONE Ondansetron HCl 4 mg 07/23/25 16:30 07/23/25 16:32 Ondansetron Hcl 4 Mg/2 Ml Vial IV 07/23/25 16:31 4 mg STAT ONE Administration Ondansetron HCl Confirm 07/23/25 16:31 Ondansetron Hcl 4 Mg/2 Ml Vial Administered 07/23/25 16:32 Dose 4 mg .ROUTE .STK-MED ONE Potassium Chloride 40 meq 07/24/25 06:27 07/24/25 06:33 Potassium Chloride Tab 10 Meq Tab PO 07/24/25 06:28 40 meq STAT ONE Administration Potassium Chloride 40 meq 07/24/25 12:30 07/24/25 14:22 Potassium Chloride Tab 10 Meq Tab PO 07/24/25 12:31 40 meq STAT ONE Administration Assessment/Plan (1) Pyelonephritis Current Visit: Yes Status: Acute Code(s): N12 - TUBULO-INTERSTITIAL NEPHRITIS, NOT SPCF ACUTE OR CHRONIC (2) Transaminitis Current Visit: Yes Status: Acute Code(s): R74.01 - ELEVATION OF LEVELS OF LIVER TRANSAMINASE LEVELS (3) Anemia Current Visit: Yes Status: Acute Code(s): D64.9 - ANEMIA, UNSPECIFIED (4) Anxiety Current Visit: Yes Status: Acute Code(s): F41.9 - ANXIETY DISORDER, UNSPECIFIED (5) HTN (hypertension) Current Visit: Yes Status: Acute Code(s): I10 - ESSENTIAL (PRIMARY) HYPERTENSION (6) Hepatomegaly Current Visit: Yes Status: Acute Code(s): R16.0 - HEPATOMEGALY, NOT ELSEWHERE CLASSIFIED (7) Hypokalemia Current Visit: Yes Status: Acute Code(s): E87.6 - HYPOKALEMIA (8) Hyponatremia Current Visit: Yes Status: Acute Code(s): E87.1 - HYPO-OSMOLALITY AND HYPONATREMIA (9) Morbid obesity with BMI of 40.0-44.9, adult Current Visit: Yes Status: Acute Code(s): E66.01 - MORBID (SEVERE) OBESITY DUE TO EXCESS CALORIES; Z68.41 - BODY MASS INDEX [BMI] 40.0-44.9, ADULT (10) Umbilical hernia Current Visit: Yes Status: Acute Assessment & Plan: (1) Pyelonephritis Current Visit: Yes Status: Acute Assessment & Plan: -CT confirmed bilateral renal parenchymal infection with perinephric inflammation. -Continue IV levofloxacin 750 mg daily -IVF with potassium -monitor for fluid overload. -Urine culture + e-coli and pansensitive -CMP/ CBC reviewed WBC -Monitor for sepsis, renal abscess, or obstruction; urology consult if deterior ation occurs. -Pain and nausea control as needed. Code(s): N12 - TUBULO-INTERSTITIAL NEPHRITIS, NOT SPCF ACUTE OR CHRONIC (2) Anemia Current Visit: Yes Status: Acute Assessment & Plan: Hemoglobin stable at 8 with positive occult stool test -Serial H/H monitoring; transfuse if <7 g/dL or symptomatic - Consider surgery consult - Avoid GI-irritating medications. - Iron studies and repletion if deficient. - Occult stool + - GS consult- pt wants OP f/u - Hgb 8.0 07/25 - Protonix BID Code(s): D64.9 - ANEMIA, UNSPECIFIED (3) HTN (hypertension) Current Visit: Yes Status: Acute Assessment & Plan: -Home bisoprolol switched to metoprolol 25 mg daily inpatient -Continue metoprolol, titrate PRN. -Hydralazine or enalapril PRN if additional control needed. -Avoid overcorrection during acute illness Code(s): I10 - ESSENTIAL (PRIMARY) HYPERTENSION (4) Anxiety Current Visit: Yes Status: Acute Assessment & Plan: -Stable on clonazepam 0.5 mg TID. Code(s): F41.9 - ANXIETY DISORDER, UNSPECIFIED (5) Hypokalemia Current Visit: Yes Status: Acute Assessment & Plan: -Likely due to vomiting, poor intake, and infection. -Potassium at 3.0 - 40meq x 2 ordered by overnight physician Replete potassium to maintain >4 mmol/L.- recheck labs -IV fluids with careful correction of sodium. -Monitor renal/lytes 07/25 - K+ 3.4- K+ added to IVF- trend Code(s): E87.6 - HYPOKALEMIA (6) Hyponatremia Current Visit: Yes Status: Acute Assessment & Plan: -mild secondary to poor intake on admission now Na level at 134 -continue IVF Code(s): E87.1 - HYPO-OSMOLALITY AND HYPONATREMIA (7) Hepatomegaly Current Visit: Yes Status: Acute Assessment & Plan: -Imaging shows fatty liver -Avoid hepatotoxic agents. -Continue trending LFTs. -Outpatient hepatology follow-up for full workup (hepatitis serologies, fibrosis assessment, metabolic risk). -Economic Specialist on diet - Denies alcohol use - AST 98, ALT 94- improved - Hepatitis panel Code(s): R16.0 - HEPATOMEGALY, NOT ELSEWHERE CLASSIFIED (8) Transaminitis Current Visit: Yes Status: Acute Assessment & Plan: see hepatomegaly Code(s): R74.01 - ELEVATION OF LEVELS OF LIVER TRANSAMINASE LEVELS (9) Umbilical hernia Current Visit: Yes Status: Acute Assessment & Plan: -Incidental finding, asymptomatic. -No acute intervention needed. -Patient education on red-flag symptoms (pain, irreducibility, nausea/vomiting). -Outpatient surgical referral if symptomatic or enlarging. Code(s): K42.9 - UMBILICAL HERNIA WITHOUT OBSTRUCTION OR GANGRENE (10) Morbid obesity with BMI of 40.0-44.9, adult Current Visit: Yes Status: Acute Assessment & Plan: -Advised diet and exercise Code(s): K42.9 - UMBILICAL HERNIA WITHOUT OBSTRUCTION OR GANGRENE (11) Melena Current Visit: Yes Status: Acute Assessment & Plan: - occult stool + - GS consult - Pt wants EGD/ Colonoscopy OP - Hgb stable - Protonix BID VTE: SCD PPI:Protonix Dispo: tomorrow Next of KIN: Mother Code status: Full Plan of care time spent > 35 mins Code(s): K92.1 - MELENA
[2025-07-25] MEDS: BUSPAR 5 MG PO PRN (19:29)
[2025-07-26 04:48] VITALS: TEMP 97.6
[2025-07-26 05:03] LABS: Hematocrit 28.3 % (34.1-44.9); Hemoglobin 8.6 g/dL (11.2-15.7); Mean Corpuscular Hemoglobin 22.2 pg (25.6-32.2); Mean Corpuscular Hgb Concent. 30.4 g/dL (32.2-35.5); Platelet Count 602 x10^3/uL (182-369); Red Blood Count 3.87 x10^6/uL (3.93-5.22); White Blood Count 8.2 x10^3/uL (3.98-10.04)
[2025-07-26 05:33] LABS: Calcium 7.7 mg/dL (8.4-10.2); Carbon Dioxide 26.0 mmol/L (22-30); Creatinine 1 0.68 mg/dL (0.52-1.04); EST GLOMERULAR FILTRATION RATE 108.0 ML/MIN; Glucose 92.0 mg/dL (74-106); Potassium 3.7 mmol/L (3.5-5.1); SGOT/AST 125.0 U/L (14-36); SGPT/ALT 101.0 U/L (0-35); Total Protein 5.8 g/dL (6.3-8.2)
[2025-07-26 07:48] LABS: Amphetamine,Urine NEGATIVE (NEGATIVE); Barbiturate,Urine NEGATIVE (NEGATIVE); Benzodiazepine,Urine NEGATIVE (NEGATIVE); Cocaine,Urine NEGATIVE (NEGATIVE); Methadone,Urine NEGATIVE (NEGATIVE); Opiate,Urine POSITIVE (NEGATIVE); PCP,Urine NEGATIVE (NEGATIVE); THC,Urine NEGATIVE (NEGATIVE)
--- NOTE | 2025-07-26 09:51 | PCM.DS ---
Discharge Summary Date of Admission: 07/23/25 19:06 Date of Discharge: 07/26/25 Admitting Physician: DAWNA BERRIOS MD Consults: Consults on Case 07/25/25 07:52 Consult Surgery ROUTINE Primary Care Provider: JEREMIAS,ENRICO Allergies Allergies cefaclor [From Ceclor] Allergy (Intermediate, Verified 07/23/25 12:36) [facility] [place] Summary - Hospital Course Hospital Course: Ms. Hester is a 49-year-old woman with a history of recurrent UTIs who was admitted on 07/24/25 with 10 days of nausea, vomiting, abdominal pain, and loose stools. Initial evaluation showed leukocytosis, anemia, hyponatremia, hypokalemia, elevated liver enzymes, hypoalbuminemia, hyperbilirubinemia, and urinalysis consistent with UTI. Imaging revealed bilateral acute pyelonephritis with perinephric fat stranding, fatty hepatomegaly, and a small umbilical hernia. She was started on IV fluids and levofloxacin, with potassium supplementation for hypokalemia. Her WBC normalized, abdominal pain and nausea improved, and hypokalemia resolved. She continued to report melena, with positive occult stool, and was evaluated by general surgery; the patient preferred outpatient EGD and colonoscopy. Liver enzymes have fluctuated, and a hepatitis panel was negative; ultrasound of the liver was ordered for further evaluation. She remained afebrile, hemodynamically stable, and denied chest pain, dyspnea, abdominal pain, nausea, or vomiting at discharge. Follow-up appointments were arranged, and she will be discharged with oral antibiotics for pyelonephritis pending non-concerning liver ultrasound results. - Vitals & Intake/Output Vital Signs: Vital Signs Temperature 97.6 F 07/26/25 04:45 Pulse Rate 97 H 07/26/25 04:45 Respiratory Rate 16 07/26/25 04:45 Blood Pressure 118/85 07/26/25 04:45 O2 Sat by Pulse Oximetry 97 07/26/25 04:45 Intake & Output: Intake & Output 07/23/25 07/24/25 07/25/25 07/26/25 11:59 11:59 11:59 11:59 Intake Total 1260 2646 3030 Output Total 300 200 200 Balance 960 2446 2830 Weight 120.1 kg 120.1 kg - Lab Result Diagrams: 07/26/25 04:39 07/26/25 04:39 Lab Results-Last 24 Hrs: Lab Results-Last 24 Hours 07/25/25 07/26/25 07/26/25 Range/Units 05:00 04:39 04:39 WBC 8.2 (3.98-10.04) x10^3/uL RBC 3.87 L (3.93-5.22) x10^6/uL Hgb 8.6 L (11.2-15.7) g/dL Hct 28.3 L (34.1-44.9) % MCV 73.1 L (79.4-94.8) fL MCH 22.2 L (25.6-32.2) pg MCHC 30.4 L (32.2-35.5) g/dL RDW 19.7 H (11.7-14.4) % Plt Count 602 H (182-369) x10^3/uL MPV 10.0 (9.4-12.3) fL Sodium 136 (135-145) mmol/L Potassium 3.7 (3.5-5.1) mmol/L Chloride 105 (98-107) mmol/L Carbon Dioxide 26 (22-30) mmol/L Anion Gap 8.9 (5-15) MEQ/L BUN 5 L (7-17) mg/dL Creatinine 0.68 (0.52-1.04) mg/dL Estimated GFR 108.0 ML/MIN Glucose 92 (74-106) mg/dL Calcium 7.7 L (8.4-10.2) mg/dL Magnesium 1.9 (1.6-2.3) mg/dL Total Bilirubin 0.60 (0.2-1.3) mg/dL AST 125 H (14-36) U/L ALT 101 H (0-35) U/L Alkaline Phosphatase 149 H (38-126) U/L Serum Total Protein 5.8 L (6.3-8.2) g/dL Albumin 2.6 L (3.5-5.0) g/dL Urine Opiates Level (NEGATIVE) Ur Methadone (NEGATIVE) Urine Barbiturates (NEGATIVE) Ur Phencyclidine (PCP) (NEGATIVE) Urine Amphetamine (NEGATIVE) U Benzodiazepine Level (NEGATIVE) Urine Cocaine (NEGATIVE) Urine Marijuana (THC) (NEGATIVE) Hepatitis A IgM Ab Negative (Negative) Hep Bs Antigen Negative (Negative) Hep B Core IgM Ab Negative (Negative) Hep C Ab Signal/Cutoff Non Reactive (Non Reactive) Hepatitis C Interp Comment (.) 07/26/25 Range/Units 07:51 WBC (3.98-10.04) x10^3/uL RBC (3.93-5.22) x10^6/uL Hgb (11.2-15.7) g/dL Hct (34.1-44.9) % MCV (79.4-94.8) fL MCH (25.6-32.2) pg MCHC (32.2-35.5) g/dL RDW (11.7-14.4) % Plt Count (182-369) x10^3/uL MPV (9.4-12.3) fL Sodium (135-145) mmol/L Potassium (3.5-5.1) mmol/L Chloride (98-107) mmol/L Carbon Dioxide (22-30) mmol/L Anion Gap (5-15) MEQ/L BUN (7-17) mg/dL Creatinine (0.52-1.04) mg/dL Estimated GFR ML/MIN Glucose (74-106) mg/dL Calcium (8.4-10.2) mg/dL Magnesium (1.6-2.3) mg/dL Total Bilirubin (0.2-1.3) mg/dL AST (14-36) U/L ALT (0-35) U/L Alkaline Phosphatase (38-126) U/L Serum Total Protein (6.3-8.2) g/dL Albumin (3.5-5.0) g/dL Urine Opiates Level POSITIVE A (NEGATIVE) Ur Methadone NEGATIVE (NEGATIVE) Urine Barbiturates NEGATIVE (NEGATIVE) Ur Phencyclidine (PCP) NEGATIVE (NEGATIVE) Urine Amphetamine NEGATIVE (NEGATIVE) U Benzodiazepine Level NEGATIVE (NEGATIVE) Urine Cocaine NEGATIVE (NEGATIVE) Urine Marijuana (THC) NEGATIVE (NEGATIVE) Hepatitis A IgM Ab (Negative) Hep Bs Antigen (Negative) Hep B Core IgM Ab (Negative) Hep C Ab Signal/Cutoff (Non Reactive) Hepatitis C Interp (.) Micro Results-Entire Visit: Microbiology 07/23/25 12:41 Urine Culture - Final Clean Catch Midstream Escherichia Coli - Radiology Exams Ordered Rad Exams-Entire Visit: Radiology Procedures Category Date Time Status LIVER OR SPLEEN [US] Routine Exams 07/26/25 07:49 Ordered - Procedures and Test Procedures and Tests throughout Hospitalization: Therapy Orders & Screens 07/23/25 19:14 Respiratory Therapy Assessment DAILY Comment: Discharge Exam General Appearance: no apparent distress, alert, obese Neurologic Exam: alert, oriented x 3, cooperative, normal mood/affect, nml cerebellar function, sensation nml, No motor deficits Eye Exam: PERRL, EOMI, eyes nml inspection Ears, Nose, Throat Exam: normal ENT inspection, pharynx normal, moist mucous membranes Neck Exam: normal inspection, non-tender, supple, full range of motion Respiratory Exam: normal breath sounds, lungs clear, No respiratory distress Cardiovascular Exam: regular rate/rhythm, normal heart sounds Gastrointestinal/Abdomen Exam: soft, distention, No tenderness, No mass Pelvic Exam: deferred Rectal Exam: deferred Back Exam: normal inspection, normal range of motion, No CVA tenderness, No vertebral tenderness Extremity Exam: normal inspection, normal range of motion Skin Exam: normal color, warm, dry Final Diagnosis/Problem List - Final Discharge Diagnosis/Problem (1) Pyelonephritis Current Visit: Yes Status: Acute Code(s): N12 - TUBULO-INTERSTITIAL NEPHRITIS, NOT SPCF ACUTE OR CHRONIC (2) Transaminitis Current Visit: Yes Status: Acute Code(s): R74.01 - ELEVATION OF LEVELS OF LIVER TRANSAMINASE LEVELS (3) Anemia Current Visit: Yes Status: Acute Code(s): D64.9 - ANEMIA, UNSPECIFIED (4) Anxiety Current Visit: Yes Status: Acute Code(s): F41.9 - ANXIETY DISORDER, UNSPECIFIED (5) HTN (hypertension) Current Visit: Yes Status: Acute Code(s): I10 - ESSENTIAL (PRIMARY) HYPERTENSION (6) Hepatomegaly Current Visit: Yes Status: Acute Code(s): R16.0 - HEPATOMEGALY, NOT ELSEWHERE CLASSIFIED (7) Hypokalemia Current Visit: Yes Status: Acute Code(s): E87.6 - HYPOKALEMIA (8) Hyponatremia Current Visit: Yes Status: Acute Code(s): E87.1 - HYPO-OSMOLALITY AND HYPONATREMIA (9) Morbid obesity with BMI of 40.0-44.9, adult Current Visit: Yes Status: Acute Code(s): E66.01 - MORBID (SEVERE) OBESITY DUE TO EXCESS CALORIES; Z68.41 - BODY MASS INDEX [BMI] 40.0-44.9, ADULT (10) Umbilical hernia Current Visit: Yes Status: Acute Code(s): K42.9 - UMBILICAL HERNIA WITHOUT OBSTRUCTION OR GANGRENE (11) Melena Current Visit: Yes Status: Acute Assessment & Plan: (1) Pyelonephritis Current Visit: Yes Status: Acute Assessment & Plan: -CT confirmed bilateral renal parenchymal infection with perinephric inflammation. -Continue IV levofloxacin 750 mg daily -IVF with potassium -monitor for fluid overload. -Urine culture + e-coli and pansensitive -CMP/ CBC reviewed WBC -Monitor for sepsis, renal abscess, or obstruction; urology consult if deterioration occurs. -Pain and nausea control as needed. 07/26 - CBC, CMP reviewed - D/C with oral antibiotic - Pt denies any pain Code(s): N12 - TUBULO-INTERSTITIAL NEPHRITIS, NOT SPCF ACUTE OR CHRONIC (2) Anemia Current Visit: Yes Status: Acute Assessment & Plan: Hemoglobin stable at 8 with positive occult stool test -Serial H/H monitoring; transfuse if <7 g/dL or symptomatic - Consider surgery consult - Avoid GI-irritating medications. - Iron studies and repletion if deficient. - Occult stool + - GS consult- pt wants OP f/u - Hgb 8.0 07/25 - Protonix BID 07/26 - Hgb 8.6 Code(s): D64.9 - ANEMIA, UNSPECIFIED (3) HTN (hypertension) Current Visit: Yes Status: Acute Assessment & Plan: -Home bisoprolol switched to metoprolol 25 mg daily inpatient -Continue metoprolol, titrate PRN. -Hydralazine or enalapril PRN if additional control needed. -Avoid overcorrection during acute illness 07/26 - BP stable Code(s): I10 - ESSENTIAL (PRIMARY) HYPERTENSION (4) Anxiety Current Visit: Yes Status: Acute Assessment & Plan: -Stable on clonazepam 0.5 mg TID. Code(s): F41.9 - ANXIETY DISORDER, UNSPECIFIED (5) Hypokalemia Current Visit: Yes Status: Acute Assessment & Plan: -Likely due to vomiting, poor intake, and infection. -Potassium at 3.0 - 40meq x 2 ordered by overnight physician Replete potassium to maintain >4 mmol/L.- recheck labs -IV fluids with careful correction of sodium. -Monitor renal/lytes 07/25 - K+ 3.4- K+ added to IVF- trend 07/26 - Resolved Code(s): E87.6 - HYPOKALEMIA (6) Hyponatremia Current Visit: Yes Status: Acute Assessment & Plan: -mild secondary to poor intake on admission now Na level at 134 -continue IVF 07/26 - Resolved Code(s): E87.1 - HYPO-OSMOLALITY AND HYPONATREMIA (7) Hepatomegaly Current Visit: Yes Status: Acute Assessment & Plan: -Imaging shows fatty liver -Avoid hepatotoxic agents. -Continue trending LFTs. -Outpatient hepatology follow-up for full workup (hepatitis serologies, fibrosis assessment, metabolic risk). 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 Remaining right upper quadrant sonogram is negative. - AST 125, ALT 101 - F/U OP with hepatology Code(s): R16.0 - HEPATOMEGALY, NOT ELSEWHERE CLASSIFIED (8) Transaminitis Current Visit: Yes Status: Acute Assessment & Plan: - see hepatomegaly Code(s): R74.01 - ELEVATION OF LEVELS OF LIVER TRANSAMINASE LEVELS (9) Umbilical hernia Current Visit: Yes Status: Acute Assessment & Plan: -Incidental finding, asymptomatic. -No acute intervention needed. -Patient education on red-flag symptoms (pain, irreducibility, nausea/vomiting). -Outpatient surgical referral if symptomatic or enlarging. Code(s): K42.9 - UMBILICAL HERNIA WITHOUT OBSTRUCTION OR GANGRENE (10) Morbid obesity with BMI of 40.0-44.9, adult Current Visit: Yes Status: Acute Assessment & Plan: -Advised diet and exercise Code(s): K42.9 - UMBILICAL HERNIA WITHOUT OBSTRUCTION OR GANGRENE (11) Melena Current Visit: Yes Status: Acute Assessment & Plan: - occult stool + - GS consult - Pt wants EGD/ Colonoscopy OP - Hgb stable - Protonix BID D/C plan of care time > 42 minutes Code(s): K92.1 - MELENA - Discharge Discharge Date: 07/26/25 Disposition: Home, Self-Care Condition: Fair Prescriptions: New Metoprolol Succinate 25 mg Xl* [Toprol-Xl 25MG Tablets] 25 mg PO DAILY 30 Days #30 tablet Pantoprazole 20 mg [Protonix 20MG Tablet] 20 mg PO BID 30 Days #60 tab levoFLOXacin [Levofloxacin] 750 mg PO DAILY 5 Days #5 tablet Continue clonazePAM [Clonazepam] 0.5 mg PO TID Doxepin HCl 35 mg PO HS Buspirone HCl 5 mg [Buspar 5 mg] 7.5 mg PO BID PRN PRN PRN Reason: Anxiety Hydrocodone/Acetaminophen [Hydrocodone-Acetamin 5-325 mg] 1 tab PO Q6HPRN PRN #14 tablet MDD 4 PRN Reason: Pain Bisoprolol Fumarate 5 mg PO DAILY Discontinued Ibuprofen 600 mg PO Q6HPRN PRN 10 Days #20 tablet PRN Reason: Pain Additional Instructions: Stop ibuprofen as it can cause GI bleeding. Follow up with: BRANDON FLYNN [COURTESY STAFF, GENERAL SURGERY] ENRICO MCDOWELL MD [Primary Care Provider, INTERNAL MEDICINE] - 08/03/25 9:45 am JAMIE GILES JR [NON-STAFF PHY W/O PRIVILEGES, GASTROENTEROLOGY] - Office will call patient Referral Note: Referral sent to Dr. Giles ([facility]). Office will call patient with appointment.
--- NOTE | 2025-07-26 10:35 | XRAY ---
Indication: Elevated liver enzymes. Two-dimensional right upper quadrant abdominal sonogram performed. Comparison: None Diffuse fatty hepatomegaly measuring 20 cm. No focal solid/cystic hepatic mass or ascites. Remaining visualized pancreas, gallbladder, and right kidney are sonographically unremarkable. Common bile duct measures 5.1 mm. Right kidney measures 13.1 x 5.6 x 6.1 cm. Impression: Fatty hepatomegaly. Remaining right upper quadrant sonogram is negative.
--- NOTE | 2025-07-26 10:46 | CONS ---
HISTORY OF PRESENT ILLNESS: A 49-year-old in for urinary tract infection and pyelonephritis. She did have anemia with hemoglobin down to 8. She is denying any current bloody stools at the moment. She was Hemoccult positive. She had some blood in her stool in the past. It has been a little while since she has had endoscopy in the past. She has not had a bowel prep. We were just consulted today. She is n.p.o. For her anemia, we did offer endoscopy while she is here today; however, she is declining. She wants to do this as an outpatient. If she rebleeds later in the week, there is a surgeon here on , I believe. PAST MEDICAL HISTORY: She has had hypertension. She has had anemia. She has had pyelonephritis. She has had some obesity, hepatomegaly, and anxiety. PAST SURGICAL HISTORY: She says she has had some endoscopy in the past. History of symptomatic umbilical hernia. MEDICATIONS: As listed per hospital MAR. FAMILY HISTORY: Negative in regard to this problem. REVIEW OF SYSTEMS: Twelve systems reviewed. She is denying any abdominal pain. She denies any upper or lower GI bleeding currently. No bloody stools or hematemesis. Other systems negative other than noted above and per admission assessment. CT scan: Well-attenuated wedge areas in the renal parenchyma consistent with bilateral pyelonephritis. She has had some fatty hepatomegaly and small fat in the umbilical area. PHYSICAL EXAMINATION: GENERAL: No acute distress. HEENT: Sclerae anicteric. Oropharynx: She had poor dentition and a loose upper tooth. NECK: No JVD. CHEST: Equal excursion. CARDIOVASCULAR: Regular pulse. ABDOMEN: Soft, obese, nontender. EXTREMITIES: No cyanosis. NEUROLOGIC: Alert. PSYCHIATRIC: Appropriate mood and affect. RECTAL: Deferred until time of endoscopy. IMPRESSION: History of anemia, unclear etiology. Would recommend an upper and lower endoscopy at some point for further evaluation. She has not had a prep. She has been n.p.o. during the day. Offered to do an upper endoscopy to evaluate for ulcer disease or other etiology; however, she declines at this time. She is concerned about her loose upper tooth. She is not having any bleeding right now and feels better. She wants to avoid upper and lower endoscopy at this point. Therefore, we will sign off. If she rebleeds this admission, there may be a surgeon here on . Otherwise, she can follow up in the office to arrange for upper and lower endoscopy as an outpatient. Otherwise, continue medical management of her anxiety, her overweight status, and her hypertension for the meantime. We will sign off at this time as she is declining any endoscopy at this moment.
[2025-07-26 12:06] VITALS: BP 130/57; PULSE 77; RESP 20; O2SAT 96
== END 2025-07-26 12:53 | disposition home or self-care (01) | DRG 690 ==
LOC: ED 12:14 → MED SURG 19:06 → UNDOADMIN 19:06
PROVIDERS: ADMIT Internal Medicine; ATTEND Internal Medicine
DX: N12 Tubulo-interstitial nephritis, not specified as acute or chronic (principal); E87.1 Hypo-osmolality and hyponatremia; Z68.41 Body mass index [BMI] 40.0-44.9, adult; K92.1 Melena; R74.01 Elevation of levels of liver transaminase levels; D64.9 Anemia, unspecified; F41.9 Anxiety disorder, unspecified; I10 Essential (primary) hypertension; E87.6 Hypokalemia; E66.01 Morbid (severe) obesity due to excess calories; K42.9 Umbilical hernia without obstruction or gangrene; R11.2 Nausea with vomiting, unspecified; N39.0 Urinary tract infection, site not specified; R16.0 Hepatomegaly, not elsewhere classified; Z79.899 Other long term (current) drug therapy